=== PATIENT | female | born 1980 | race Caucasian/White ===

== ENCOUNTER → 2022-07-30 13:15 | Outpatient (CLI) | payer BC, SELFPAY ==
--- NOTE | ~2022-07-30 | MM_ITS ---
EXAMINATION: MM screening rai BI w princess HISTORY: Screening mammogram TECHNIQUE: Craniocaudal and mediolateral oblique 3-D tomosynthesis images were obtained and synthetic 2-D images were generated. CAD analysis was submitted and interpreted. COMPARISON: No prior mammogram is available for comparison at this institution. BREAST PARENCHYMAL COMPOSITION: There are scattered areas of fibroglandular density. FINDINGS: There is no evidence of suspicious mass, calcification, or architectural distortion to sugg est malignancy in either breast. There has been no suspicious interval change. IMPRESSION: 1. No mammographic evidence of malignancy. 2. Recommend routine screening mammography in one year. BI-RADS Category 1: Negative Reviewed, dictated and finalized at location A.
== END ==
PROVIDERS: PCP Family Medicine; Visit Provider Obstetrics & Gynecology
DX: Z12.31 Encounter for screening mammogram for malignant neoplasm of breast (principal)
CPT/HCPCS: 77063; 77067

== ENCOUNTER 2022-09-18 08:14 | Outpatient (CLI) | payer BC, SELFPAY ==
--- NOTE | 2022-09-18 08:21 | ECG_ITS ---
Measurements Intervals [place] Rate: 81 P: 66 SD: 198 QRS: 4 QRSD: 93 T: 23 QT: 373 QTc: 435 Interpretive Statements SINUS RHYTHM INCOMPLETE RIGHT BUNDLE BRANCH BLOCK DELAYED PRECORDIAL R/S TRANSITION LOW QRS VOLTAGE- DIFFUSE LEADS BASELINE ARTIFACT- I, III, AVR, AVL, AVF, V3 BORDERLINE ECG NO PREVIOUS ECG AVAILABLE FOR COMPARISON Electronically Signed On 09-18-2022 9:13:06 LICENSED MARRIAGE AND FAMILY THERAPIST by Rubén Lee D.O.
[2022-09-18 09:02] LABS: Hemoglobin 13.8 g/dL (12.0-15.0); Mean Corpuscular HGB Conc 32.1 g/dl (32-36); Mean Corpuscular Hemoglobin 31.2 pg (26-34); Mean Corpuscular Volume 97.3 fl (80-100); Mean Platelet Volume 9.4 fl (7.4-10.4); Platelet Count Result 328 k/mm3 (150-375); Red Blood Count 4.42 M/mm3 (4.2-5.4); Red Cell Distribution Width 12.6 % (11.5-14.5)
[2022-09-18 09:15] LABS: Anion Gap 11 mmol/L (8-16); Blood Urea Nitrogen 21 mg/dL (7-17); Calcium 9.2 mg/dL (8.4-10.2); Carbon Dioxide 28 mmol/L (22-30); Chloride 100 mmol/L (98-107); Estimated Glomerular Filt Rate > 60; Glucose 102 mg/dL (65-110); Potassium 5.1 mmol/L (3.4-5.0); Sodium 139 mmol/L (137-145)
== END 2022-09-18 08:15 | disposition home or self-care (01) ==
LOC: ANHSURGERY 08:19
PROVIDERS: Anesthesiology; PCP Family Medicine; Visit Provider Obstetrics & Gynecology
DX: D25.9 Leiomyoma of uterus, unspecified (principal); I10 Essential (primary) hypertension; Z01.818 Encounter for other preprocedural examination; I45.10 Unspecified right bundle-branch block
CPT/HCPCS: 36415; 80048; 85027; 86850; 86900; 86901; 93005

== ENCOUNTER 2023-01-12 11:28 | Outpatient (CLI) | payer BC, SELFPAY ==
[2023-01-12 11:47] LABS: Basophils Percent Auto 0.5 % (0.2-1.2); Eosinophils Absolute Auto 0.3 K/mm3 (0-0.3); Eosinophils Percent Auto 3.2 % (0-4.4); Hematocrit 39.6 % (37.0-47.0); Hemoglobin 12.8 g/dL (12.0-15.0); Immature Granulocyte Absolute 0.02 K/mm3 (0.00-0.031); Immature Granulocyte Percent A 0.2 % (0-0.5); Lymphocytes Absolute Auto 2.48 K/mm3 (0.9-3.2); Lymphocytes Percent Auto 29.5 % (18.3-44.2); Mean Corpuscular HGB Conc 32.3 g/dl (32-36); Mean Corpuscular Hemoglobin 30.8 pg (26-34); Mean Corpuscular Volume 95.2 fl (80-100); Mean Platelet Volume 9.2 fl (7.4-10.4); Monocytes Absolute Auto 0.5 K/mm3 (0.1-0.6); Monocytes Percent Auto 6.4 % (2.6-8.5); Neutrophils Absolute Auto 5.1 K/mm3 (1.3-6.7); Neutrophils Percent Auto 60.2 % (45.5-73.1); Platelet Count Result 302 k/mm3 (150-375); Red Blood Count 4.16 M/mm3 (4.2-5.4); Red Cell Distribution Width 12.7 % (11.5-14.5); White Blood Count 8.4 K/mm3 (4.5-10.0)
[2023-01-12 11:59] LABS: Anion Gap 5 mmol/L (8-16); Blood Urea Nitrogen 22 mg/dL (7-17); Calcium 9.3 mg/dL (8.4-10.2); Carbon Dioxide 30 mmol/L (22-30); Chloride 101 mmol/L (98-107); Estimated Glomerular Filt Rate 54; Glucose 100 mg/dL (65-110); Potassium 4.5 mmol/L (3.4-5.0); Sodium 136 mmol/L (137-145)
== END 2023-01-12 11:29 | disposition home or self-care (01) ==
PROVIDERS: Anesthesiology; PCP Family Medicine; Visit Provider Obstetrics & Gynecology
DX: Z01.818 Encounter for other preprocedural examination (principal); Z79.899 Other long term (current) drug therapy; N85.2 Hypertrophy of uterus
CPT/HCPCS: 36415; 80048; 85025; 86850; 86900; 86901

== ENCOUNTER 2023-01-16 01:08 | Day surgery (SDC) | payer BC, SELFPAY ==
[2022-09-15 14:31] VITALS: BMI 46.9
--- NOTE | 2022-09-15 14:39 | PC.NURSE ---
Report to the Outpatient Waiting Room, entrance under the green pavilion located off [facility], at time __0700_ on date _09/24/22_. Planned Procedure Time: __0900_. Time changes happen often and if your time is changed the preop area will call you the afternoon before. - You and your visitor will be asked to self-screen and do not enter if you have any COVID symptoms. - We encourage only one visitor and NO visitors under age 16 are allowed at this time. Your visitor will receive communication by the phone number that is given day of service. - The patient visitor is requested to social distance or may leave the building when not with patient due to restrictions. - A mask is required within the hospital. Patients may have clear liquids (water, carbonated beverages, clear teas, apple juice) until 3 hours prior to surgery with a maximum of 20 ounces. - No food from midnight until time of surgery - Infants may have breast milk until 4 hours before surgery, formula 6 hours prior to surgery. - Children will be allowed to drink immediately following surgery. If applicable, please bring a bottle or sippy cup to assist with drinking. Juice, water, soda, and popsicles are readily available. For infants on formula, please bring formula the day of surgery. Pacifiers are allowed. Take the following medications with a SIP of water the morning of surgery: ___FLUOXETINE, BUPROPION Medications to discontinue per physician NONE Date to take last dose Please no make-up, nail south korean, hairspray, perfume, deodorant, or body powder the day of surgery. No jewelry (including any body piercings) or valuables the day of surgery, leave them at home. Please take a shower or bath the night before, or the morning of, surgery with an antibacterial soap. Wear comfortable, loose fitting clothing. Children are encouraged to wear pajamas. - Jewelry must be removed prior to entering the operating room. Rings and piercings that are not removed may be cut off. - The hospital will not accept responsibility for valuables. - Please leave all valuables, including medications, at home the day of surgery. If you are going home after surgery, a licensed [employer] company driver must drive you home. - NO public transportation without another adult. - We recommend that an adult stay with you for 24 hours following discharge. - We also recommend that you do not drive, make important decision, drink alcoholic beverages, or take any drugs that were not prescribed by your health care provider for at least 24 hours after your discharge time. For Pediatric surgeries, we recommend two adults accompany the child home. Follow any additional instructions given to you from your surgeon. If you or anyone in your household have experienced Covid symptoms in the past week, please notify your surgeon or the nurse liaison at the phone number below for possible testing. Telephone instructions given to _PATIENT_and asked if any additional questions and then verbalized understanding. Patient advised to call surgeon office or pre surgery nurse liaison [phone] if any additional questions.
[2023-01-05 14:56] VITALS: BMI 49.0
--- NOTE | 2023-01-05 15:09 | SUR.PREOP ---
Report to the Outpatient Waiting Room, entrance under the green pavilion located off [facility], at time 0730 on date __01/16/23 . Planned Procedure Time: _929 . Time changes happen often and if your time is changed the preop area will call you the afternoon before. - You and your visitor will be asked to self-screen and do not enter if you have any COVID symptoms. - Only one visitor is requested with a max of two and NO children visitors are allowed at this time. - The patient visitor may be requested to leave or wait in car when not with patient due to distancing restrictions. - A mask is optional within the hospital at this time. Patients may have clear liquids (water, carbonated beverages, clear teas, apple juice) until 3 hours prior to surgery with a maximum of 20 ounces. - No food from midnight until time of surgery - Infants may have breast milk until 4 hours before surgery, formula 6 hours prior to surgery. - Children will be allowed to drink immediately following surgery. If applicable, please bring a bottle or sippy cup to assist with drinking. Juice, water, soda, and popsicles are readily available. For infants on formula, please bring formula the day of surgery. Pacifiers are allowed. Take the following medications with a SIP of water the morning of surgery: __BUPROPION,FLUOXETINE DO NOT STOP ANY OF YOUR OTHER PRESCRIPTION MEDICATIONS PRIOR TO SURGERY ?EXCEPT THE FOLLOWING Medications to discontinue per physician BIOTIN, Date to take last dose__01/13/23 Please no make-up, nail bulgarian, hairspray, perfume, deodorant, or body powder the day of surgery. No jewelry (including any body piercings) or valuables the day of surgery, leave them at home. Please take a shower or bath the night before, or the morning of, surgery with an antibacterial soap. Wear comfortable, loose fitting clothing. Children are encouraged to wear pajamas. - Jewelry must be removed prior to entering the operating room. Rings and piercings that are not removed may be cut off. - The hospital will not accept responsibility for valuables. - Please leave all valuables, including medications, at home the day of surgery. If you are going home after surgery, a licensed combine driver must drive you home. - NO public transportation without another adult if you receive anesthesia. - We recommend that an adult stay with you for 24 hours following discharge. - We also recommend that you do not drive, make important decision, drink alcoholic beverages, or take any drugs that were not prescribed by your health care provider for at least 24 hours after your discharge time. For Pediatric surgeries, we recommend two adults accompany the child home. Follow any additional instructions given to you from your surgeon. If you or anyone in your household have experienced Covid symptoms in the past week, please notify your surgeon or the nurse liaison at the phone number below for possible testing. Telephone instructions given to _ADRIAN EVANGELISTA and asked if any additional questions and then verbalized understanding. Patient advised to call surgeon office or pre surgery nurse liaison [phone] if any additional questions.
--- NOTE | 2023-01-13 07:42 | P.HP_ITS ---
H&P: HPI History of Present Illness Date/Time: 01/13/23 07:42 Chief Complaint: Enlarged uterus pelvic pain Narrative: This is a 42-year-old female admitted for robotic hysterectomy bilateral salpingectomy secondary to vaginal bleeding. She had an endometrial biopsy which showed benign findings. She continues to bleed heavily and has known uterine fibroids she will undergo robotic hysterectomy and bilateral s alpingectomy. Risks and benefits reviewed including but not exclusive of , aspiration, bleeding, transfusion, perforation injury to bowel, bladder, ureters, or other internal organs with need for open laparotomy. She received the ACOG handout entitled hysterectomy as well as [place] handout. She had all questions answered as proceed [facility] Social History Social History Smoking packs per day: 0.1 Smoking cigarettes per day: 2.0 Years smoked: 18 Smoking pack-years: 1.80 Smoking status: Current every day smoker Tobacco type: cigarettes Alcohol intake: current Drinks per week: 14 Living arrangements: with family Spiritual care concerns: No Meds Home Medications and Allergies Home Medications Medication Instructions Recorded Confirmed Type bupropion HCl 150 mg 24 hr tablet, 150 mg PO DAILY 09/15/22 01/05/23 History extended release fluoxetine 40 mg capsule 40 mg PO DAILY 09/15/22 01/05/23 History hydrochlorothiazide 25 mg tablet 25 mg PO DAILY 09/15/22 01/05/23 History biotin 5 mg capsule 5 mg PO DAILY 01/05/23 01/05/23 History cetirizine 10 mg capsule (Zyrtec) 10 mg PO DAILY 01/05/23 01/05/23 History Allergies Allergy/AdvReac Type Severity Reaction Status Date / Time No Known Allergies Allergy Unverified 01/05/23 14:38 Exam Const: General: cooperative, healthy appearing, comfortable and well groomed Nutritional Appearance: obese Orientation/consciousness: oriented to person, oriented to place and oriented to time HENMT: Head: normal to inspection Resp: Effort & Inspection: normal respiratory effort Cardio: Rate: regular rate Rhythm: regular rhythm Heart sounds: S1 normal heart sound present and S2 normal heart sound present GI: Inspection: normal to inspection and obesity Percussion: Yes normal to percussion Auscultation: normal bowel sounds : External Female Exam: normal external appearance Speculum Exam - Vagina: normal appearance of the vagina Speculum Exam - Cervix: normal appearance of the cervix Bimanual exam- vagina & uterus: enlarged Bimanual Exam- Adnexa, other: normal adnexae Assessment and Plan Assessment and plan (1) Pelvic pain: Code(s): R10.2 - Pelvic and perineal pain Status: Acute (2) Enlarged uterus: Code(s): N85.2 - Hypertrophy of uterus Status: Acute (3) Excessive bleeding: Code(s): R58 - Hemorrhage, not elsewhere classified Status: Acute (4) Dyspareunia: Status: Acute Plan Robotic total vaginal hysterectomy and bilateral salpingectomy
[2023-01-16] VITALS (13 sets, daily range): BP systolic 128–148; BP diastolic 84–99; PULSE 63–96; RESP 10–18; TEMP 36.4–37.4; O2SAT 93–100
--- NOTE | 2023-01-16 06:24 | WPDHPUPDATE1 ---
History and Physical Update Update Date/Time: 01/16/23 06:24 History and Physical has been reviewed, including an updated exam of the patient. There are NO changes in the patient's condition. Risks, benefits, and alternatives have been discussed and questions answered. Patient agrees to proceed with procedure.
[2023-01-16] MEDS: ACETAMINOPHEN 500 MG TABLET 1000 MG PO (08:10)
[2023-01-16] MEDS: SCOPOLAMINE 1.5 MG PATCH TRANSDERM (08:11)
[2023-01-16] MEDS: LACTATED RINGERS 1,000 ML 30 ML IV CONT ×2 (08:24→10:50)
[2023-01-16] MEDS: KETOROLAC 15 MG/ML VIAL (*BKC) IV PUSH (08:26)
--- NOTE | 2023-01-16 08:42 | P.PNAN_ITS ---
Anes - Initial Pre Proc Eval Procedure: Operation Date: 01/16/23 09:30 Proposed Procedures p Robotic Assisted Total Vaginal Hysterectomy with Bilateral Salpingectomy - Moisés Benítez MD Date/Time: 01/16/23 08:42 Surgeon: Moisés Benítez MD Pre Op Diagnosis: Enlarged Uterus, Fibroids, Pelvic Pain Patient Data Age: 42 Gender: F Height: 1.63 m Weight: 129.6 kg Last Vital Signs Temp 36.4 C L 01/16/23 07:40 Pulse 95 01/16/23 07:40 Resp 16 01/16/23 07:40 BP 148/94 H 01/16/23 07:40 Pulse Ox 99 01/16/23 07:40 O2 Del Method Room Air 01/16/23 07:40 Allergies Allergy/AdvReac Type Severity Reaction Status Date / Time No Known Allergies Allergy Unverified 01/16/23 08:04 Home Medications Medication Instructions Recorded Confirmed Type bupropion HCl 150 mg 24 hr tablet, 150 mg PO DAILY 09/15/22 01/16/23 History extended release fluoxetine 40 mg capsule 40 mg PO DAILY 09/15/22 01/16/23 History hydrochlorothiazide 25 mg tablet 25 mg PO DAILY 09/15/22 01/16/23 History biotin 5 mg capsule 5 mg PO DAILY 01/05/23 01/16/23 History cetirizine 10 mg capsule (Zyrtec) 10 mg PO DAILY 01/05/23 01/16/23 History hydrocodone 5 mg-acetaminophen 325 1 tablet PO Q4H PRN pain #30 tabs 01/16/23 Rx mg tablet Patient hx anesthesia problems: none Family hx anesthesia problems: none Results Review: All pre-operative results and documents have been reviewed as part of the pre- operative evaluation. [facility] Past Medical History Medical History (Updated 01/16/23 @ 08:43 by Moisés Palacios MD) HTN (hypertension) Morbid obesity Social History Social History Smoking packs per day: 0.1 Smoking cigarettes per day: 2.0 Years smoked: 18 Smoking pack-years: 1.80 Smoking status: Current every day smoker Tobacco type: cigarettes Alcohol intake: current Drinks per week: 14 Living arrangements: with family Spiritual care concerns: No Anes - Eval Final PreProcedure Day of Procedure 01/16/23 08:42 Patient weight: morbidly obese Heart: regular rate and rhythm Lungs: clear to auscultation Airway: Mallampati scale class II Neurological: alert and oriented Last oral intake: >/= 8 hours ASA classification: III Emergent: no Anesthetic plan: proceed Results Review: All pre-operative results and documents have been reviewed as part of the pre- operative evaluation. Informed Consent: The patient's anesthetic plan and its attendant risks and benefits were discussed with the patient/family/POA. Questions were solicited and answers provided to the satisfaction of the patient/family/POA.
[2023-01-16] MEDS: ceFAZolin 3 GM/D5W 100 ML 100 ML IVPB (09:02)
--- NOTE | 2023-01-16 10:03 | W.PM.PROC2 ---
Procedure Note - Detailed Date of Procedure 01/16/23 Pre-op Diagnosis Enlarged Uterus, Fibroids, Pelvic Pain Post-op Diagnosis Same Procedure Performed Robotic total vaginal hysterectomy and bilateral salpingectomy Surgeon Moisés Benítez MD Anesthesia General Indications 42-year-old female with an enlarged uterus pain and bleeding Findings enlarged uterus. Normal-appearing ovaries and tubes. Description of Procedure The patient is prepped draped in normal sterile fashion placed in the dorsal lithotomy position. Under excellent general trach anesthesia weighted speculum placed in posterior fornix vagina. Anterior lip of the cervix grasped with single-tooth tenaculum. Uterus sounded to 9cm. Serial dilatation with fragmented dilators performed followed passes the 8. VAHE and the 2. 0.5 cold cup. Next the 16 Malay catheter was placed and bladder drained of clear urine. The weighted speculum and single-tooth removed and the gloves were changed. Supraumbilical incision made the Veress needle passed in the abdomen. Abdomen filled with CO2 gas to 15mm Hg. The 8mm trocar advanced in the abdomen. Downside visualized no injury seen. Patient placed in Trendelenburg at20? and right left lateral quadrant incision made. 8mm trocars advanced under direct visualization assuring no injury. Right upper quadrant incision made and the 8mm trocar advanced under direct visualization assuring no injury. The robot was docked. Attention was turned to the console. The left round ligament was grasped, burned, cut. Anterior bladder flap was formed by sharply dissecting the peritoneum and reflecting the bladder caudally away from the cervix and uterus to the opposite round ligament which was clamped, burned, cut. Next the fallopian tube was dissected away from the ovarian complex and left attached to the uterine origin. The right fallopian tube was removed in the same way. The utero-ovarian ligament on the left was skeletonized clamping burning cutting and conserving the left ovary. Utero-ovarian ligament on the right was skeletonized clamping burning cutting and bring it out to the previously cut round ligament conserving the right ovary. The left cardinal broad ligaments were serially skeletonized clamping burning cutting down the lateral edge of the uterus hugging it tightly until the uterine vessels could be seen on the left these were large and tortuous and were sharply clamped burned and cut. In like fashion the cardinal broad ligaments on the right were serially skeletonized clamping burning cutting down the lateral edge of the uterus cervix until the uterine vessels could be seen on the right. These were individually clamped, burned, cut. A colpotomy incision was made in the cervix uterus and tubes removed through the vagina. The vagina was then closed with continuous running 0 the lock from lateral edge to lateral edge back to the midline. Irrigation undertaken until clear and the raw surface areas sprinkled with [place] term. The robot was undocked. The gas removed from the abdomen. The trocars removed and the incisions closed with 4 Monocryl glue. The patient was awakened and went to recovery in satisfactory condition. All sponge, needle, instrument counts were correct. There were no immediate complications Estimated Blood Loss 25 Drains No Packing No Pathology Yes Complications No immediate complications Condition Stable Disposition PACU
[2023-01-16] MEDS: fentaNYL CITRATE INJ (*CRX) 100 MCG/2 ML VIAL 25 MCG IV PUSH ×4 (10:52→11:45)
--- NOTE | 2023-01-16 12:36 | ADMGEN ---
1233-This patient, Anh Evans, was admitted to OB 2nd Floor Room 284-00. Patient/family oriented to hospital policies and general routines including ID bracelet, bed and alarms, visiting hours, pain management, procedures, bathroom and other care routines, personal items, smoking policy, room service/diet, and visiting hours. Information on how to activate the Rapid Response Team has been discussed. Patient/Family are encouraged to report perceived risks to care and to ask questions if they do not understand what they are told or what they should do.
[2023-01-16] MEDS: DEXTROSE 5%/LACTATED RINGERS 1,000 ML 125 ML IV CONT (13:30)
[2023-01-16] MEDS: IBUPROFEN 600 MG TABLET PO (17:30)
[2023-01-16] MEDS: SIMETHICONE 80 MG TAB.CHEW PO (17:31)
[2023-01-16] MEDS: DOCUSATE SODIUM 100 MG CAPSULE PO (17:31)
[2023-01-17] MEDS: HYDROcodone/acetaminophen (*CRX) 5-325 MG TABLET 1 TAB PO ×2 (01:25→10:38)
[2023-01-17] MEDS: SIMETHICONE 80 MG TAB.CHEW PO ×3 (01:25→08:58)
[2023-01-17] MEDS: IBUPROFEN 600 MG TABLET PO (01:26)
[2023-01-17 04:00] VITALS: BP 140/92; PULSE 82; RESP 18; TEMP 36.7; O2SAT 97
[2023-01-17 05:56] LABS: Basophils Percent Auto 0.1 % (0.2-1.2); Eosinophils Percent Auto 0.1 % (0-4.4); Hematocrit 40.3 % (37.0-47.0); Hemoglobin 13.3 g/dL (12.0-15.0); Immature Granulocyte Absolute 0.06 K/mm3 (0.00-0.031); Immature Granulocyte Percent A 0.4 % (0-0.5); Lymphocytes Absolute Auto 2.07 K/mm3 (0.9-3.2); Lymphocytes Percent Auto 13.4 % (18.3-44.2); Mean Corpuscular Volume 93.9 fl (80-100); Mean Platelet Volume 9.2 fl (7.4-10.4); Monocytes Absolute Auto 0.9 K/mm3 (0.1-0.6); Monocytes Percent Auto 5.7 % (2.6-8.5); Neutrophils Absolute Auto 12.4 K/mm3 (1.3-6.7); Neutrophils Percent Auto 80.3 % (45.5-73.1); Platelet Count Result 342 k/mm3 (150-375); Red Blood Count 4.29 M/mm3 (4.2-5.4); Red Cell Distribution Width 12.7 % (11.5-14.5); White Blood Count 15.5 K/mm3 (4.5-10.0)
--- NOTE | 2023-01-17 07:04 | PM.DS ---
DS: Admitting Diagnosis Discharge Date 01/17/2023 Admitting Diagnosis enlarged uterus, pelvic pain /bleeding DS: Discharge Diagnosis Discharge Diagnosis (1) Dyspareunia: Status: Acute (2) Excessive bleeding: Code(s): R58 - Hemorrhage, not elsewhere classified Status: Acute (3) Enlarged uterus: Code(s): N85.2 - Hypertrophy of uterus Status: Acute (4) Pelvic pain: Code(s): R10.2 - Pelvic and perineal pain Status: Acute DS: Summary Hospital Course Reason for hospitalization: patient was admitted for robotic hysterectomy bilateral salpingectomy Hospital Course: patient underwent an unremarkable robotic hysterectomy bilateral salpingectomy. Her hospital course unremarkable. She remained afebrile. She was up, voiding without difficulty, eating regular diet, ambulating, and generally without complaints. Time Spent with Patient Time attestation: Total time spent providing and/or coordinating discharge services: Exam Const: General: cooperative, healthy appearing and comfortable Nutritional Appearance: overweight Orientation/consciousness: oriented to person, oriented to place and oriented to time HENMT: Head: normal to inspection Resp: Effort & Inspection: normal respiratory effort Cardio: Rate: regular rate Rhythm: regular rhythm Heart sounds: S1 normal heart sound present and S2 normal heart sound present GI: Inspection: normal to inspection and incision ( Wounds clean dry intact) DS: Data Data Completed and Pending Pending studies at discharge: Pending at discharge 01/16/23 09:47 Surgical [PTH] Routine Labs on day of discharge: Labs from last 24 hours 01/17/23 05:02 WBC 15.5 H RBC 4.29 Hgb 13.3 Hct 40.3 MCV 93.9 MCH 31.0 MCHC 33.0 RDW 12.7 Plt Count 342 MPV 9.2 Immature Gran % (Auto) 0.4 Neut % (Auto) 80.3 H Lymph % (Auto) 13.[address] [place] % (Auto) 5.7 Eos % (Auto) 0.1 Baso % (Auto) 0.1 L Lymph # (Auto) 2.07 [place] # (Auto) 0.9 H Eos # (Auto) 0.0 Baso # (Auto) 0.0 Abs Immat Gran (auto) 0.06 H Absolute Neuts (auto) 12.4 H Absolute Nucleated RBC 0.0 Nucleated RBC % 0.0 Discharge Plan Discharge Patient Disposition: Home, Self-Care Discharge Instructions: Remove the Scopolamine patch that was placed behind your ear in 72 hours or less. Wash your hands after touching. Stand Alone Forms: General Discharge Instructions Follow-up/Referrals: Moisés Urrutia MD [Physician] - Discharge Medications: New hydrocodone-acetaminophen 5-325 mg tablet 1 tablet PO Q4H PRN (Reason: pain) Qty: 30 0RF Continued bupropion HCl 150 mg Tablet Extended Release 24 Hr 150 mg PO DAILY fluoxetine 40 mg capsule 40 mg PO DAILY hydrochlorothiazide 25 mg Tablet 25 mg PO DAILY biotin 5 mg Capsule 5 mg PO DAILY Zyrtec 10 mg Capsule 10 mg PO DAILY
--- NOTE | 2023-01-17 07:07 | PM.GYNPNOP ---
MANAGER OF NETWORK - A/P Postoperative Procedures: Procedures Operation Date: 01/16/23 09:30 Actual Procedure Side Surgeon p Robotic Assisted Total Vaginal Hysterectomy with Bilateral Salpingectomy Bilateral Moisés Benítez MD Postoperative status: doing well Postoperative plan: routine post-op care, see orders, advance diet and discharge Time Spent With Patient Time: Total time spent is greater than 50% in coordination of care (as documented) at patient's floor/unit and/or counseling patient: Time with patient: less than 15 minutes MANAGER OF NETWORK- PN:Subj Post-Op Subjective Date/time seen: 01/17/23 07:07 Subjective: patient reports feeling better, pain is well controlled and patient is tolerating oral intake Exam Const: General: cooperative, healthy appearing and comfortable Nutritional Appearance: average body habitus Orientation/consciousness: oriented to person, oriented to place and oriented to time HENMT: Head: normal to inspection Resp: Effort & Inspection: normal respiratory effort Cardio: Rate: regular rate Rhythm: regular rhythm Heart sounds: S1 normal heart sound present and S2 normal heart sound present GI: Inspection: normal to inspection and incision (cdi) MANAGER OF NETWORK - PN: Obj Data Vital Signs Vital Signs: Vital Signs - 24 hr 01/16/23 07:40 01/16/23 10:25 01/16/23 10:40 Temperature 97.5 F L 97.9 F Pulse Rate 95 86 65 Respiratory Rate 16 15 10 L Blood Pressure 148/94 H 144/89 H Pulse Oximetry 99 100 100 Oxygen Delivery Room Air Simple Face Mask Simple Face Mask Oxygen Flow Rate 8 8 01/16/23 10:55 01/16/23 11:10 01/16/23 11:25 Temperature Pulse Rate 63 71 75 Respiratory Rate 12 12 12 Blood Pressure 131/94 H 137/84 146/90 H Pulse Oximetry 94 94 93 Oxygen Delivery Room Air Room Air Room Air Oxygen Flow Rate 01/16/23 11:40 01/16/23 11:55 01/16/23 12:10 Temperature Pulse Rate 73 84 84 Respiratory Rate 12 14 18 Blood Pressure 136/90 141/92 H 138/86 Pulse Oximetry 94 94 94 Oxygen Delivery Room Air Room Air Room Air Oxygen Flow Rate 01/16/23 12:25 01/16/23 12:35 01/16/23 13:40 Temperature 99.3 F Pulse Rate 94 84 84 Respiratory Rate 16 16 16 Blood Pressure 128/91 H 135/85 Pulse Oximetry 94 96 96 Oxygen Delivery Room Air Room Air Oxygen Flow Rate 01/16/23 20:45 01/17/23 04:00 Temperature 98.2 F 98.1 F Pulse Rate 96 82 Respiratory Rate 18 18 Blood Pressure 142/99 H 140/92 H Pulse Oximetry 97 97 Oxygen Delivery Oxygen Flow Rate Intake/Output Intake/Output: Intake & Output 01/14/23 01/15/23 01/16/23 01/17/23 23:59 23:59 23:59 23:59 Intake Total 3324 Output Total 2610 325 Balance 714 -325 Meds/Results Medications: Active Medications Generic Name Dose Route Start Last Admin Trade Name Freq PRN Reason Stop Dose Admin Hydrocodone Bitart/Acetaminophen 1 tab 01/16/23 12:26 01/17/23 01:25 Hydrocodone/Acetaminophen (*Crx) 5-325 Mg Tablet PO 1 tab Q3H PRN Administration Pain Rated 5 or Less Hydrocodone Bitart/Acetaminophen 1 tab 01/16/23 12:26 Hydrocodone/Acetaminophen (*Crx) 10-325 Mg Tablet PO Q3H PRN Pain Rated 6 or Greater Docusate Sodium 100 mg 01/16/23 17:00 01/16/23 17:31 Docusate Sodium 100 Mg Capsule PO 100 mg BID YANNI Administration Enoxaparin Sodium 40 mg 01/17/23 09:00 Enoxaparin 40 Mg/0.4 Ml Syringe SUB-Q DAILY YANNI Ibuprofen 600 mg 01/16/23 12:26 01/17/23 01:26 Ibuprofen 600 Mg Tablet PO 600 mg Q6H PRN Administration Cramping Ketorolac Tromethamine 30 mg 01/16/23 12:26 Ketorolac 30 Mg/Ml Vial (*Bkc) IV PUSH 01/21/23 12:25 Q6H PRN Pain Rated 4-6 Naloxone HCl 0.1 mg 01/16/23 12:26 Naloxone Hcl 0.4 Mg/Ml Vial IV PUSH Q2M PRN Respiratory rate less than 10 Ondansetron HCl 4 mg 01/16/23 12:26 Ondansetron Inj 4 Mg/2 Ml Vial IV PUSH Q6H PRN Nausea And Vomiting Simethicone 80 mg 01/16/23 12:26 01/17/23 04:57 Si
--- NOTE | 2023-01-17 07:58 | P.PNAN_ITS ---
Anes - Prog Note Post-Op Date/Time: 01/17/23 07:58 Cardiovascular status: normal Respiratory status: normal Airway patency: baseline Mental status: baseline Post-Op hydration status: normal Vital Signs: Last Vital Signs Temp 36.7 C 01/17/23 04:00 Pulse 82 01/17/23 04:00 Resp 18 01/17/23 04:00 BP 140/92 H 01/17/23 04:00 Pulse Ox 97 01/17/23 04:00 O2 Del Method Room Air 01/16/23 13:40 O2 Flow Rate 8 01/16/23 10:40 Pain Score (VAS): 10 I/O: Intake & Output 01/16/23 01/16/23 01/17/23 15:59 23:59 07:59 Intake Total 1100 2224 Output Total 60 2550 325 Balance 1040 -326 -325 Laboratory Tests 01/17/23 05:02 01/17/23 05:02 WBC 15.5 H RBC 4.29 Hgb 13.3 Hct 40.3 MCV 93.9 MCH 31.0 MCHC 33.0 RDW 12.7 Plt Count 342 MPV 9.2 Immature Gran % (Auto) 0.4 Neut % (Auto) 80.3 H Lymph % (Auto) 13.4 L [place] % (Auto) 5.7 Eos % (Auto) 0.1 Baso % (Auto) 0.1 L Lymph # (Auto) 2.07 [place] # (Auto) 0.9 H Eos # (Auto) 0.0 Baso # (Auto) 0.0 Abs Immat Gran (auto) 0.06 H Absolute Neuts (auto) 12.4 H Absolute Nucleated RBC 0.0 Nucleated RBC % 0.0 Post-procedural complaints: none Patient Feedback: Patient satisfied with anesthetic care.
[2023-01-17] MEDS: DOCUSATE SODIUM 100 MG CAPSULE PO (08:58)
[2023-01-17] MEDS: ENOXAPARIN 40 MG/0.4 ML SYRINGE SUB-Q (08:59)
[2023-01-17 09:05] VITALS: BP 127/77; PULSE 86; RESP 18; TEMP 36.7; O2SAT 98
== END 2023-01-17 10:50 | disposition home or self-care (01) ==
LOC: ANHSURGERY 09:31 → ANHOB2 12:28
PROVIDERS: PCP Family Medicine; Visit Provider Obstetrics & Gynecology
PROC: (CPT 58552; principal; 2023-01-16 09:30)
DX: D25.0 Submucous leiomyoma of uterus (principal); D25.1 Intramural leiomyoma of uterus; R10.2 Pelvic and perineal pain; N93.9 Abnormal uterine and vaginal bleeding, unspecified; I10 Essential (primary) hypertension; E66.01 Morbid (severe) obesity due to excess calories; Z68.42 Body mass index [BMI] 45.0-49.9, adult; F17.210 Nicotine dependence, cigarettes, uncomplicated
CPT/HCPCS: 58552; S2900; 36415; 80048; 85025; 86850; 86900; 86901; 88307; 99199; A9270; J0690; J1100; J1650; J1885; J2250; J2405; J2704; J2710; J3010; J7030; J7120; J7121

== ENCOUNTER 2023-12-28 09:46 | Emergency (ER) | payer BC, SELFPAY ==
[2023-12-28 09:54] VITALS: BP 175/106; PULSE 87; RESP 20; TEMP 36.7; O2SAT 99
--- NOTE | 2023-12-28 10:03 | ED.DENTAL ---
HPI - Dental/Oral General Chief complaint: Dental/Oral Stated complaint: Toothache/Swelling to Face Source: patient, RN notes reviewed and old records reviewed Mode of arrival: ambulatory Limitations: no limitations History of Present Illness HPI Narrative: 43-year-old female presents to [facility] with complaints of right upper dental pain this started last p.m.. Patient now has facial swelling. Patient taking ibuprofen and hydrocodone with little relief. Patient states does not have a dentist but is called several and cannot get until next Thursday. Related Data Home Medications Medication Instructions Recorded Confirmed Women's Multivitamin 1 tab-cap PO DAILY 12/24/23 12/28/23 aspirin 81 mg capsule 81 mg PO DAILY 12/24/23 12/28/23 escitalopram oxalate 20 mg tablet 20 mg PO DAILY 12/24/23 12/28/23 losartan 100 1 tablet PO DAILY 12/24/23 12/28/23 mg-hydrochlorothiazide 25 mg tablet omega-3 fatty acids 1 cap PO DAILY 12/24/23 12/28/23 topiramate 25 mg tablet 25 mg PO BID 12/24/23 12/28/23 Allergies Allergy/AdvReac Type Severity Reaction Status Date / Time No Known Allergies Allergy Unverified 12/24/23 12:56 Review of Systems Constitutional: Constitutional: Reports no additional constitutional complaints, Denies body ache(s), Denies chills, Denies fatigue, Denies fever(s) and Denies headache(s) Eyes: Eyes: Reports no additional eye complaints and Denies blurry vision ENT: Reports system reviewed and no additional complaints, except as documented, Reports dental pain, Denies vertigo, Denies dizziness, Denies ear discharge, Denies otalgia, Reports facial pain, Denies headache(s), Denies nasal congestion, Denies nasal discharge, Denies sinus pain, Denies sinus pressure and Denies sore throat Cardiovascular: Cardiovascular: Reports no additional cardiovascular complaints, Denies chest pain, Denies chest pain at rest, Denies rapid heart rate and Denies dyspnea Respiratory: Respiratory: Reports no additional respiratory complaints, Denies chest congestion, Denies cough, Denies pain on inspiration, Denies pain with cough and Denies dyspnea Gastrointestinal: Gastrointestinal: Denies abdominal pain, Denies diarrhea, Denies nausea and Denies vomiting Integumentary/Breasts: Skin/Breast: Denies rash Neurologic: Reports system reviewed and no additional complaints, except as documented, Denies vertigo, Denies dizziness and Denies headache(s) Endocrine: Endocrine: Denies fatigue PMFSH Past Medical History Medical History HTN (hypertension) Morbid obesity Social History Social History Smoking packs per day: 0.5 Smoking cigarettes per day: 10.0 Years smoked: 12 Smoking pack-years: 6.00 Smoking status: Current every day smoker Tobacco type: cigarettes Alcohol intake: current Drinks per week: 21 Alcohol use details: BEER Substance use: never Substance use type: does not use Living arrangements: with family Spiritual care concerns: No Comments At the time of my signature, I reviewed and agree with the nursing past medical, surgical, social, and family history. There is no relevant family history pertinent to the patient complaint. Exam Const: General: cooperative, healthy appearing, no acute distress and well nourished Nutritional Appearance: well nourished Orientation/consciousness: patient oriented x3 Limitations: no limitations HENMT: Head: normal to inspection and normocephalic Ears: external ears normal Face/Nose/Sinus: No face symmetric and Other nasal findings present ( Right facial swelling) Face and sinus: normal facial exam Mouth: Yes Normal oral and palatal mucosa present, Yes oropharynx normal and Yes moist mucous membranes Teeth and gingiva: abnormal tooth and associated gingiva ( tooth 1 and 2 broken at gum line), gingiva abnormal edematous and poor dentition Thro
== END 2023-12-28 10:10 | disposition home or self-care (01) ==
PROVIDERS: Emergency Provider Registered Nurse; PCP Family Medicine
DX: K04.7 Periapical abscess without sinus (principal); I10 Essential (primary) hypertension; E66.01 Morbid (severe) obesity due to excess calories; Z68.42 Body mass index [BMI] 45.0-49.9, adult
CPT/HCPCS: 99213; G0463

== ENCOUNTER 2024-01-06 01:04 | Day surgery (SDC) | payer BC, SELFPAY ==
[2023-12-24 12:54] VITALS: BMI 49.4
--- NOTE | 2024-01-04 09:53 | SUR.PREOP ---
Patient called regarding upcoming procedure. Reviewed preop instructions, appointment times, and procedure prep.
[2024-01-06 09:10] VITALS: BP 143/95; PULSE 92; RESP 18; TEMP 36.5; O2SAT 98
[2024-01-06] MEDS: LACTATED RINGERS 1,000 ML 150 ML IV CONT (09:46)
--- NOTE | 2024-01-06 10:07 | WPDANESEPPF ---
Anes - Initial Pre Proc Eval Procedure: Operation Date: 01/06/24 10:30 Proposed Procedures p Screening Colonoscopy - Walker Daugherty MD Date/Time: 01/06/24 10:07 Surgeon: Walker Daugherty MD Pre Op Diagnosis: neoplasm screening Patient Data Age: 43 Gender: F Height: 1.63 m Weight: 128 kg Last Vital Signs Temp 97.7 F 01/06/24 09:10 Pulse 92 01/06/24 09:10 Resp 18 01/06/24 09:10 BP 143/95 H 01/06/24 09:10 Pulse Ox 98 01/06/24 09:10 O2 Del Method Room Air 01/06/24 09:10 Allergies Allergy/AdvReac Type Severity Reaction Status Date / Time No Known Allergies Allergy Unverified 01/06/24 09:08 Home Medications Medication Instructions Recorded Confirmed Type Women's Multivitamin 1 tab-cap PO DAILY 12/24/23 01/06/24 History aspirin 81 mg capsule 81 mg PO DAILY 12/24/23 01/06/24 History escitalopram oxalate 20 mg tablet 20 mg PO DAILY 12/24/23 01/06/24 History losartan 100 1 tablet PO DAILY 12/24/23 01/06/24 History mg-hydrochlorothiazide 25 mg tablet omega-3 fatty acids 1 cap PO DAILY 12/24/23 01/06/24 History topiramate 25 mg tablet 25 mg PO BID 12/24/23 01/06/24 History Patient hx anesthesia problems: none Family hx anesthesia problems: none Results Review: All pre-operative results and documents have been reviewed as part of the pre-operative evaluation. [facility] Past Medical History Medical History HTN (hypertension) Morbid obesity Social History Social History Smoking packs per day: 0.5 Smoking cigarettes per day: 10.0 Years smoked: 12 Smoking pack-years: 6.00 Smoking status: Current every day smoker Tobacco type: cigarettes Alcohol intake: current Drinks per week: 21 Alcohol use details: BEER Substance use: never Substance use type: does not use Living arrangements: with family Spiritual care concerns: No Anes - Eval Final PreProcedure Day of Procedure 01/06/24 10:07 Patient weight: morbidly obese Heart: regular rate and rhythm Lungs: clear to auscultation Airway: Mallampati scale class II Neurological: alert and oriented Last oral intake: >/= 8 hours ASA classification: III Emergent: no Anesthetic plan: proceed Anesthesia type and monitoring: general GIVS and standard monitoring Results Review: All pre-operative results and documents have been reviewed as part of the pre-operative evaluation. Informed Consent: The patient's anesthetic plan and its attendant risks and benefits were discussed with the patient/family/POA. Questions were solicited and answers provided to the satisfaction of the patient/family/POA.
--- NOTE | 2024-01-06 10:39 | PM.HPGS ---
History of Present Illness History of Present Illness Consent: Risks, benefits, and alternatives have been discussed and questions answered. Patient agrees to proceed with procedure. Chief complaint: neoplasm screening Narrative: Anh Evans is a 43 year old female here for first screening colonoscopy Review of Systems Constitutional: Constitutional: Denies headache(s) and Denies weakness Eyes: Eyes: Denies blurry vision ENT: Reports Normal hearing present, Denies headache(s) and Denies neck pain Cardiovascular: Cardiovascular: Denies chest pain and Denies dyspnea Respiratory: Respiratory: Denies dyspnea Gastrointestinal: Gastrointestinal: Reports no additional gastrointestinal complaints Genitourinary: Genitourinary: Denies dysuria Musculoskeletal: Musculoskeletal: Denies neck pain Integumentary/Breasts: Skin/Breast: Denies dry skin Neurologic: Reports Normal hearing present, Denies headache(s) and Denies weakness Psychiatric: Psychiatric: Denies anxiety Endocrine: Endocrine: Denies change in body appearance Hematologic/Lymphatic: Hematologic/Lymphatic: Denies easy bleeding Allergic/Immunologic: Allergic/Immunologic: Denies urticaria PMFSH Past Medical History Medical History (Updated 01/06/24 @ 10:39 by Walker Daugherty MD) Colon cancer screening HTN (hypertension) Morbid obesity Social History Social History Smoking packs per day: 0.5 Smoking cigarettes per day: 10.0 Years smoked: 12 Smoking pack-years: 6.00 Smoking status: Current every day smoker Tobacco type: cigarettes Alcohol intake: current Drinks per week: 21 Alcohol use details: BEER Substance use: never Substance use type: does not use Living arrangements: with family Spiritual care concerns: No Meds Home Medications and Allergies Home Medications Medication Instructions Recorded Confirmed Type Women's Multivitamin 1 tab-cap PO DAILY 12/24/23 01/06/24 History aspirin 81 mg capsule 81 mg PO DAILY 12/24/23 01/06/24 History escitalopram oxalate 20 mg tablet 20 mg PO DAILY 12/24/23 01/06/24 History losartan 100 1 tablet PO DAILY 12/24/23 01/06/24 History mg-hydrochlorothiazide 25 mg tablet omega-3 fatty acids 1 cap PO DAILY 12/24/23 01/06/24 History topiramate 25 mg tablet 25 mg PO BID 12/24/23 01/06/24 History Allergies Allergy/AdvReac Type Severity Reaction Status Date / Time No Known Allergies Allergy Unverified 01/06/24 09:08 Vital Signs Vital Signs - 24 hr 01/06/24 09:10 Temperature 97.7 F Pulse Rate 92 Respiratory Rate 18 Blood Pressure 143/95 H Pulse Oximetry 98 Oxygen Delivery Room Air Exam Const: General: comfortable and no acute distress HENMT: Face/Nose/Sinus: Normal nares present Eyes: General: appearance normal, both eyes and all related structures Neck: Neck: no JVD Resp: Auscultation: clear to auscultation bilaterally Cardio: Rate: regular rate Rhythm: regular rhythm GI: Inspection: non-distended GI Palp: Yes Soft to palpation Skin: General skin exam: normal color Neuro: General: gait normal Speech: normal speech Extrem: General: normal to inspection Psych: Mental Status: mental status grossly normal Assessment and Plan Assessment and plan (1) Colon cancer screening: Code(s): Z12.11 - Encounter for screening for malignant neoplasm of colon Status: Acute Assessment and Plan: colonoscopy
[2024-01-06 10:57] VITALS: BP 115/73; PULSE 80; RESP 24; O2SAT 98
[2024-01-06 11:07] VITALS: BP 122/73; PULSE 78; RESP 21; O2SAT 99
[2024-01-06 11:17] VITALS: BP 121/84; PULSE 74; RESP 19; O2SAT 100
== END 2024-01-06 11:28 | disposition home or self-care (01) ==
PROVIDERS: PCP Family Medicine; Visit Provider Internal Medicine Gastroenterology
PROC: 0DJD8ZZ Inspection of Lower Intestinal Tract, Via Natural or Artificial Opening Endoscopic (ICD-10-PCS; CPT 45378; principal; 2024-01-06 10:30)
DX: Z12.11 Encounter for screening for malignant neoplasm of colon (principal); I10 Essential (primary) hypertension; F17.210 Nicotine dependence, cigarettes, uncomplicated; E66.01 Morbid (severe) obesity due to excess calories; Z68.42 Body mass index [BMI] 45.0-49.9, adult; Z79.82 Long term (current) use of aspirin
CPT/HCPCS: 45378; J2001; J2704; J7120

== ENCOUNTER 2024-03-10 12:31 | Outpatient (CLI) | payer BC, SELFPAY ==
--- NOTE | ~2024-03-10 | MM_ITS ---
EXAMINATION: MM screening rai BI w princess HISTORY: Screening mammogram TECHNIQUE: Craniocaudal and mediolateral oblique 3-D tomosynthesis images were obtained and synthetic 2-D images were generated. CAD analysis was submitted and interpreted. COMPARISON: 07/30/2022 bilateral screening mammogram examination BREAST PARENCHYMAL COMPOSITION: There are scattered areas of fibroglandular density. FINDINGS: There is no evidence of suspicious mass, calcification, or architectural distortion to sugg est malignancy in either breast. There has been no suspicious interval change. IMPRESSION: 1. No mammographic evidence of malignancy. 2. Recommend routine screening mammography in one year. BI-RADS Category 1: Negative Reviewed, dictated and finalized at location B.
== END 2024-03-10 12:32 ==
PROVIDERS: PCP Obstetrics & Gynecology; Visit Provider Obstetrics & Gynecology
DX: Z12.31 Encounter for screening mammogram for malignant neoplasm of breast (principal)
CPT/HCPCS: 77063; 77067

== ENCOUNTER 2025-04-14 08:02 | Emergency (ER) | payer BC, SELFPAY ==
--- OUTSIDE RECORDS SUMMARY | 2025-04-14 08:05 | XMS_ITS | Clinical Summary ---
Author Organization [facility] [place] Address [address] [place] [address] Phone Care Team Providers Care Patient Observation Assistant Name Role Phone Yennifer Weaver PAC Primary Care Pro vider Allergies No known active allergies Medications escitalopram (LEXAPRO) 20 MG Tablet Take 20 mg by mouth daily. 04/11/2024 Active losartan potassium-hydro chlorothiazide (HYZAAR) 100-25 MG Tablet Take 1 Tablet by mouth daily. Active metoprolol Succinate (TOPROL-XL) 50 MG TABLET SR 24 HR Take 50 mg by mouth daily. 04/11/2024 Active Lisdexamfetamin e Dimesylate 30 MG Capsule Take 1 Capsule by mouth daily. 03/14/2024 Active Cholecalciferol (VITAMIN D-3 PO) Take 2,000 Units by mouth. Active amLODIPine (NORVASC) 5 MG Tablet Take 1 Tablet by mouth daily. 90 Tablet 04/15/2024 Active Active Problems Problem Noted Date Diagnosed Date Depression 04/15/2024 Hypertension 04/15/2024 Encounters Date Type Department Care Team Description 04/14/2025 6:58 AM CDT [facility] [address] [place] [id number] Yennifer Weaver, DONA Arrived 04/14/2025 Travel 03/14/2025 Transcribe [facility] [place] [facility] [address] [place] [address] Yennifer Weaver, DONA Encounter for screening mammogram for breast cancer (Primary Dx) from Last 3 Months Immunizations Immunization Administration Dates Next Due Influenza Vaccine, Quadrivalent, PF 08/09/2019 TDAP Vaccine 11/16/2019 Family History Medical History Relation Name Comments Cancer Father Relation Name Status Comments Father Mother Alive Social History Tobacco Use Types Packs/Day Years Used Date Smoking Tobacco: Every Day Cigarettes 0.5 16 Started: 04/15/2009 Smokeless Tobacco: Never Tobacco Cessation:Ready to Q uit: No; Counseling Given: No Alcohol Use Standard Drinks/Week Comments Yes 0 (1 standard drink = 0.6 oz pur e alcohol) [facility] Utilities Answer Date Recorded In the past 12 months has th e electric, gas, oil, or water company threatened to shut off services in your home? No 04/15/2024 Social Connection and Isolation Panel Answer Date Recorded In a typical week, how many times do you talk on the phone with family, friends, or neighbors? More than three times a week 04/15/2024 How often do you get togethe r with friends or relatives? Three times a week 04/15/2024 Attends [employer] Not on file 04/15 Active Member of Clubs or Organizations Not on f ile 04/15/2024 Attends Club or Organization Meetings Not on rachel e 04/15/2024 Marital Status Not on file 04/15/2024 AUDIT-C Answer Date Recorded Q1: How often do you have a drink containing alc ohol? 2-3 times a week 04/15/2024 Q2: How many drinks containi ng alcohol do you have on a typical day when you are drinking? 3 or 4 04/15/2024 Q3: How often do you have si x or more drinks on one occasion? Weekly 04/15/2024 Overall Financial Resource Strain (CARDIA) Answe r Date Recorded How hard is it for you to pa y for the very basics like food, housing, medical care, and heating? Not very hard 04/15/2024 [facility] [place] [facility] ional [facility] - Occupational Stress Questionnaire Answer Date Recorded Do you feel stress - tense, restless, nervous, or anxious, or unable to sleep at night because your mind is troubled all the time - these days? To some extent 04/15/2024 Exercise Vital Sign Answer Date Recorde d On average, how many days pe r week do you engage in moderate to strenuous exercise (like a brisk walk)? 4 days 04/15/2024 On average, how many minutes do you engage in exercise at this level? 30 min 04/15/2024 Hunger Vital Sign Answer Date Recorded Within the past 12 months, y ou worried that your food would run out before you got the money to buy more. Never true 04/15/20 24 Within the past 12 months, t he food you bought just didn't last and you didn't have money to get more. Never true 04/15/2024 PRAPARE - Transportation Answer Date Re corded In the past 12 months, has l ack of transportation kept you from medical appointments or from getting medications? No 04/02 In the past 12 months, has l ack of transportation kept you from meetings, work, or from getting things needed for daily living? No 04/15/2024 Housing Stability Vital Sign Answer Silvano e Recorded In the last 12 months, was t here a time when you were not able to pay the mortgage or rent on time? No 04/15/2024 In the past 12 months, how m any times have you moved where you were living? 0 04/15/2024 At any time in the past 12 m [facility], were you homeless or living in a retirement (including now)? No 04/15/2024 Comments No Sex and Gender Information Value Date Recorded Sex Assigned at Not on file Legal Sex Female 10:19 AM CDT Gender Identity Not on file Sexual Orientation Not on file Last Filed Vital Signs Vital Sign Reading Time Taken Comments Blood Pressure 160/102 04/15/2024 10:33 AM CDT Pulse 55 04/15/2024 10:33 AM CDT Temperature 36.3 C (97.4 F) 04/15/2024 10:33 AM CDT Respiratory Rate 12 04/15/2024 10:33 AM CDT Oxygen Saturation 97% 04/15/2024 10:33 AM CDT Inhaled Oxygen Concentration - - Weight 131.1 kg (289 lb) 04/15/2024 10:33 AM CDT Height 162.6 cm (5' 4) 04/15/2024 10:33 AM CDT Body Mass Index 49.61 04/15/2024 10:33 AM CDT Plan of Treatment Health Maintenance Due Date Last Done Comments Hepatitis C Virus (HCV) Screening 1978 Mammogram 1978 Hepatitis B Immunization (1 of 3 - 19+ 3-dose series) 1997 Pneumococcal Immunization Combined (1 of 2 - PCV) 1997 Discussion re Starting/Frequency of Mammograms 2018 Cologuard 2023 Immunochemical Fecal Occult Blood 2023 SARS-COV-2 Immunization (3 - 2023- season) 2024 02/17/2021, 01/28/2021 Influenza Immunization (Seas on Ended) 2025 08/09/2019 Td Immunization Every 10 Yea rs (Adults With 1 Tdap) 11/16/2029 11/16/2019 Colonoscopy 01/31/2034 02/01/2024 Colorectal Cancer Screening 01/31/2034 Respiratory Syncytial Virus (RSV) Immunization (Adult) (1 - 1-dose 75+ series) 2053 TdaP Immunization Discontinued 11/16/2019 Human Papillomavirus (HPV) Immunization Aged Out No longer eligible based on patient's age to complete this topic Meningococcal Immunization (ACWY) Aged Out No longer eligible based on patient's age to complete this topic Rotavirus Immunization Aged Out No lo nger eligible based on patient's age to complete this topic Insurance [facility] Care Teams Patient Observation Assistant Relationship Specialty Start Date End Date Yennifer Weaver [facility] [address] [place] [address] PCP - General Physician Computer Installation Engineer 04/15/24
--- OUTSIDE RECORDS SUMMARY | 2025-04-14 08:05 | XMS_ITS | Clinical Summary ---
Author Organization [facility] C Address [address] [facility] [place] [address] Care Team Providers Care Software Publisher Name Role Phone Elvira Glass MD Primary Care Provider + Allergies No known active allergies Medications cholecalciferol (VITAMIN D-3) 2,000 unit capsule Take 2,000 Units by mouth daily Active escitalopram (LEXAPRO) 10 mg tablet Take 1 tablet (10 mg total) by mouth daily 10/07/2023 Active losartan-hydroch lorothiazide (HYZAAR) 100-25 mg per tablet Take 1 tablet by mouth daily 10/07/2023 Active buPROPion SR (WELLBUTRIN SR) 150 mg 12 hr tablet Take 1 tablet (150 mg total) by mouth daily Active metoprolol XL (TOPROL-XL) 50 mg extended release tablet Take 1 tablet (50 mg total) by mouth daily Active Active Problems Problem Noted Date Diagnosed Date Vocal nodules in adults 01/29/2022 Anxiety 05/09/2020 Essential hypertension 05/09/2020 Resolved Problems Problem Noted Date Diagnosed Date Resolved Date Breech presentation, no version 11/30/2019 01/12/2020 Overview (11/30/2019): Added automatically from request for surgery [id number] Gestational diabetes mellitu s (GDM) in second trimester 09/27/2019 01/12/2020 resulting from in vitro fertilization in second trimester 07/26/20192019 Supervision of other high ri sk , antepartum 06/30/2019 01/12/2020 Overview (07/12/2019): -EDC: Estimated Date of Delivery: 01/14/2020 - Labs: O+/I/hep B neg/hep C neg/HIV neg -Blood type: O pos -Pap: [facility] -Aneuploidy testing: panorama, low risk female -Anatomy ultrasound: -GCT: -Tdap: -Flu: -GBS: -Contraception: -Peds: -/BF/FOB: Yung-Bill Primary reason for MFM care: IVF, AMA, Chronic HTN, obesity, h/o hysteroscopic myomectomy 01/2019([facility]) Assessment & Plan (07/12/2019 11:32 AM CDT): 38 year old at 13+2 weeks gestation with no evidence of compromise in well being EDC: Estimated Date of Delivery: 01/14/2020 - Labs: O+/I/hep B neg/hep C neg/HIV neg -Blood type: O pos -Pap: [facility] -Aneuploidy testing: panorama, low risk female -Anatomy ultrasound: -GCT: -Tdap: -Flu: -GBS: -Contraception: -Peds: -/BF/FOB: Yung-Bill Primary reason for MFM care: IVF, AMA, Chronic HTN, obesity, h/o hysteroscopic myomectomy 01/2019([employer]) RTN in 1 week Assessment & Plan (06/30/2019 10:53 AM CDT): EDC: Estimated Date of Delivery: 01/14/2020 - Labs: drawn 06/30/19 -Blood type: O pos -Pap: [facility] -Aneuploidy testing: drawn 06/30/19 (red), donor egg 24 years old -Anatomy ultrasound: -GCT: -Tdap: -Flu: -GBS: -Contraception: -Peds: -/BF/FOB: Yung Primary reason for MFM care: IVF, AMA, Chronic HTN, obesity, h/o hysteroscopic myomectomy 01/2019([facility]) RTN in 2 weeks Primigravida of advanced mat ernal age in first trimester 06/30/2019 01/12/2020 Overview (06/30/2019): 24 year old donor eggs used for the , IVF simkes Assessment & Plan (07/12/2019 11:34 AM CDT): 24 year old donor eggs with low risk panorama Assessment & Plan (06/30/2019 10:54 AM CDT): Cell free DNA red drawn today, donor eggs 24 years old Chronic hypertension affecting 06/30/2019 01/12/2020 Assessment & Plan (07/12/2019 11:33 AM CDT): Continues on Labetalol 200mg po BID Growth assessment every 4 weeks Baseline CBC. CMP normal-drawn 06/29/19 Assessment & Plan (06/30/2019 11:29 AM CDT): Continue labetalol 200mg po BID Assess Bps twice daily, reviewed recommendations of when to take BP's with history of uterine myomectomy 9 01/12/2020 Assessment & Plan (06/30/2019 11:28 AM CDT): Hysteroscopic 01/2019 Obesity affecting in first trimester 06/30/2019 01/12/2020 Assessment & Plan (07/12/2019 11:34 AM CDT): Current weight gain 4# Reviewed appropriate caloric intake in and weight gain Assessment & Plan (06/30/2019 11:30 AM CDT): Reviewed weight recommendations 3# weight gain in the thus far Immunizations Immunization Administration Dates Next Due Influenza, Quadrivalent, Spl it, Preservative Free, Intramuscular 08/09/2019 Tdap 11/16/2019 Surgical History Surgery Date Site/Laterality Comments MYOMECTOMY Medical History Medical History Date Comments Fibroid Obesity Gestational diabetes mellitus Hypertension only during preg aleksandr Family History Medical History Relation Name Comments Breast cancer Paternal Grandmother Relation Name Status Comments Paternal Grandmother Social History Tobacco Use Types Packs/Day Years Used Date Smoking Tobacco: Former Cigarettes 0.5 10 Smokeless Tobacco: Never Alcohol Use Standard Drinks/Week Comments Not Currently 0 (1 standard drink = 0.6 oz pur e alcohol) AUDIT-C Answer Date Recorded Q1: How often do you have a drink containing alcohol? Never 06/07/2024 Q2: How many drinks containi ng alcohol do you have on a typical day when you are drinking? Patient does not drink Q3: How often do you have si x or more drinks on one occasion? Never 06/07/2024 Harts Depression Scale Answer Date Recorded Harts Depression Scale Total 15 12/05/2019 The thought of harming myself has occurred to me . Never 12/05/2019 Comments Unknown Sex and Gender Information Value Date Recorded Sex Assigned at Not on file Legal Sex Female 12:12 PM CDT Gender Identity Not on file Sexual Orientation Not on file Obstetrics History Para Term AB IAB SAB Ectopic Multiple Livin g Live Births 1 1 1 0 1 1 Date Outcome GA Total Labor Labor/2nd/3rd Weight Sex Type Anes PTL Marisabel A1 A5 Name Clin 2019 33w 4d 1.935 kg (4 lb 4.3 oz) F CS-LT ranv Spinal Y Livin g 8 9 JOSEMANUEL COLBY,Yesenia Miller MD Complications:Pre eclampsia Delivery Location:This [facility] ([facility] L AND D PROCEDURE) Comments:see ped note Last Filed Vital Signs Vital Sign Reading Time Taken Comments Blood Pressure 141/84 06/07/2024 11:31 AM CDT Pulse 84 06/07/2024 11:31 AM CDT Temperature 37.1 C (98.7 F) 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 Respiratory Rate 18 06/07/2024 11:31 AM CDT Oxygen Saturation 97% 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 Inhaled Oxygen Concentration - - Weight 132.5 kg (292 lb) 06/07/2024 11:31 AM CDT Height 162.6 cm (5' 4) 06/07/2024 11:31 AM CDT Body Mass Index 50.12 06/07/2024 11:31 AM CDT Plan of Treatment Scheduled Procedures Name Priority Associated Diagnoses Date/Ti me SECTION Breech presentation, single or unspecified fetus with history of uterine myomectomy Obesity affecting in first trimester Severe pre-eclampsia, antepartum Health Maintenance Due Date Last Done Comments Breast Cancer Screening-Mammogram 1978 Cervical Cancer Screening 1978 Colon Cancer Screening-Colonoscopy 1978 Hepatitis B Screening 1996 Regular Well Visit/Exam 18-64 1996 Depression Screening 12/05/2020 12/05/2019 Covid-19 Vaccine ( - 2023-2 5 season) 2024 02/17/2021, 01/28/2021 Influenza Vaccine (Season Ended) 2025 08/09/2019 DTaP/Tdap/Td Vaccine (2 - Td or Tdap) 11/16/2029 11/16/2019 Hepatitis C Screening Completed 06/30/2019 HPV Vaccines Aged Out No longer eligi ble based on patient's age to complete this topic Pneumococcal vaccine <65 Aged Out No longer eligible based on patient's age to complete this topic Medical Devices Implanted Type Area Pusher Operator Device Identifier Shelf Expiration Date Model / Serial / Lot [employer] [id number] Seprafilm 6x5in Barrier Adhesion Sterile Disposable Latex Free - [id number] Implanted:Qty: 1 on 11/30/2019 by Markel Horton MD at [facility] [employer] [id number] 05/01/2022 [id number] / / [id number] Procedures Procedure Name Priority Date/Time Associated Diagnosis Comments HEPATITIS C ANTIBODY Routine 06/30/2019 6:04 PM CDT Unspecified high-risk from Last 3 Months or Most Recently Relevant to Health Maintenance Results * Hepatitis C antibody (06/30/2019 6:04 PM CDT) Hep C Ab Non-Reactiv e Non-Reactiv e [facility] Blood specimen (specimen) 06/30/2019 6:04 PM CDT 06/30/2019 7:14 PM CDT us Aminta Melendez NP LAB MICROBIOLOGY - GEN ERAL ORDERABLES Final Result [facility] [address] Department [place] [address] from Last 3 Months or Most Recently Relevant to Health Maintenance Insurance ANTHEM ACCESS CHOICE BLUE ACCESS OOS ANTHEM ACCESS [facility] Advance Directives For more information, please contact: [phone] * Full Code (Latest Code Status on File) Date Activated Date Inactivated Comments 11/30/2019 9:53 PM 12/06/2019 9:16 PM * Full Code Date Activated Date Inactivated Comments 11/30/2019 11:26 AM 11/30/2019 9:53 PM Full CPR in case of cardiopulmonary arrest Care Teams Software Publisher Relationship Specialty Start Date End Date Elvira Glass MD [address] [place] [address] DR [address] [place] [id number] PCP - General Family Medicine 05/07/22
--- OUTSIDE RECORDS SUMMARY | 2025-04-14 08:05 | XMS_ITS | Continuity of Care Document ---
Author Organization [facility] Address [address] [place] [address] Phone Care Team Providers Care Manager Books Name Role Phone John Guerra MD Unavailable Unavailable Allergies, Adverse Reactions, Alerts Substance Reaction Status Criticality No Known Allergies Active No Inform ation Medications Medication Instructions Dosage Effective Dates (start - stop) Status Comments phentermine 37.5 mg tablet take 1 tablet by oral route every day before breakfast 37.5 MG - Active metoprolol succinate ER 50 mg tablet,extended release 24 hr take 1 tablet by oral route every day 50 MG - Active losartan 100 mg-hydrochlorothiaz caitlyn 25 mg tablet take 1 tablet by oral route every day 1.00 tablet - Active albuterol sulfate HFA 90 mcg/actuation aerosol inhaler inhale 1 puff by inhalation route every 4 - 6 hours as needed as needed 1 puff - Active PRN for sob Procedures Procedure Date OFFICE/OUTPATIENT VISIT, EST PREV VISIT, EST, AGE 40-64 OFFICE/OUTPATIENT VISIT, EST OFFICE/OUTPATIENT VISIT, [facility] Advance Directives Directive Yes / No Effective Date File Name No Information Encounters Encounter Description Practice Location Reason(s) For Visit Diagnoses Date Provider Providers Copied on Encounter OFFICE/OUTPA TIENT VISIT, EST [facility], [address] [place] [address], [id number], tel:[phone] [facility] anxiety1 (chief complaint) sleep apnea1 (chief complaint) obesity1 (chief complaint) FatigueGeneralized Anxiety DisorderAbnormal weight gainObstructive sleep apnea hypopnea Feb-0 6-202 5 Charlie Lopez. [address], [place], [place], [id number] , [place]. tel:[phone] PREV VISIT, EST, AGE 40-64 [facility], [address], [place], [place], [id number], [place] tel:[phone] [facility] physical (chief complaint) Encounter for general adult medical exam w abnormal findingsMixed hyperlipidemiaEssen tial (primary) hypertensionGeneral ized Anxiety DisorderAbnormal weight gainFatigue 5 Charlie Lopez. [address], [place], [place], [id number] , [place]. tel:[phone] OFFICE/OUTPA TIENT VISIT, [facility], [address], [place], [place], [id number], [place] tel:[phone] [facility] HTN (chief complaint) COVID1 (chief complaint) anxiety1 (chief complaint) weight gain1 (chief complaint) HLP (chief complaint) Essential (primary) hypertensionMixed hyperlipidemiaGener alized Anxiety DisorderAbnormal weight gainRenal diseaseAcute sinusitis 4 Charlie Lopez. [address], [place], [place], [id number] , [place]. tel:[phone] Family History Family Member Type Diagnosis Age At Onset Mother Problem Alive and well Father Problem of pancreatic CA 64 Sister Problem Alive and well Payers Payer name Insurance type Covered constitution party ID Authoreliua timustapha(s) [facility] CI [id number] Social History Type Description Quantity Date Captured Comments Alcohol Use Details 2 drinks socially Caffeine Use Details Unknown Tobacco Use Status Occasional cigarette smoker Smoking Status Light tobacco smoker Sex Female Vital Signs Date / Time: Height Weight BMI Pulse Rate Blood Pressure Temperature Respiratory Rate Body Surface Area Head Circumference BMI percentile Pulse Ox Inhaled Ox 5:53 PM 64.00 in 295.40 lbs 50.7 0 kg/m eter (2) 70 /min 124/76 mm[Hg] 97.7 F 16 /min Chief Complaint And Reason For Visit From encounter dated '12/08/2024 17:46'. anxiety1 (chief complaint). Description: Pt has history of anxiety and depression Pt has been in the process of weaning off lexapro and lamictal and she has been doing ok in terms of her mood. Pt denies any suicidal or homicidal thought. sleep apnea1 (chief complaint). Description: Pt has mild sleep apnea .Pt feels fatigue. Pt snores at night Pt is interested in cpap obesity1 (chief complaint). Description: Pt is obese. Her BMI is over 50 Pt started phentermine recently She only lost 1 pounds. Pt tolerating it ok Plan Of Treatment Date Type Action Status Referral Ordered: SLEEP STUDY, ATTENDED ordered History Of Present Illness Encounter Date Complaint History Of Prese nt Illness anxiety1 Pt has history o f anxiety and depression Pt has been in the process of weaning off lexapro and lamictal and she has been doing ok in terms of her mood. Pt denies any suicidal or homicidal thought. sleep apnea1 Pt has mild slee p apnea .Pt feels fatigue. Pt snores at night Pt is interested in cpap obesity1 Pt is obese. Her BMI is over 50 Pt started phentermine recently She only lost 1 pounds. Pt tolerating it ok physical Pt needs annual physical Pt has fatigue and snore at night. pt is interested in sleep study. Pt has history of anxiety and depression. Pt is on lexapro and lamictal per psychiatry .Pt is off wellbutrin Pt states that her mood improved and she wants to get off all psychiatry meds. Pt also has difficulty losing weight. Pt did lose some weight with phentermine but she gained it back since off phentermine about one month ago. Pt has HTN. Pt takes metoprolol and losartan/hctz and her bp is ok. Pt denies any other complaints weight gain1 Pt has difficult y losing weight Pt failed diet and exercise. HLP Pt hernandez lab done l ast year which showed borderline high renal and cholesterol HTN Pt has HTN Pt ta kes metoprolol and losartan/hctz and her bp is stable. anxiety1 Pt has chronic a nxiety and depression Pt takes lexapro and wellbutrin and doing ok Pt denies any suicidal or homicidal thought Pt denies any crying spells. COVID1 Pt had COVID two weeks ago and she still feels some sinus congestion and loss of taste and smell. Pt denies any cough or fever or chill or sob. Instructions Date Instruction Additional Infor atul No Information Assessments Type Assessment Date assessment Fatigue assessment Generalized Anxiety Disorder Dec assessment Abnormal weight gain assessment Obstructive sleep apnea hypopnea Mental Status Date Cognitive Assessment Orientation - [place] ed to time, place, person, situation.
--- OUTSIDE RECORDS SUMMARY | 2025-04-14 08:05 | XMS_ITS | Patient Health Record ---
Author Organization [facility] As Distil Interactive Address [address] [place] [address] Care Team Providers Care Manager Simulation Name Role Phone Anh Dwyer Unavailable [phone] CarlosJessenia gallego Unavailable [phone] Allergies No Known Allergies Results Component Value Reference Range Notes UDT Reviewed date:05/30/2024 10:26:17 AM Interpretation: Performing Lab: Notes/Report: THC N 0 - 50 ng/ml Cocaine N 0 - 300 ng/ml Amphetamine N 0 - 1000 ng/ml Buprenorphine (BUP) N 0 - 10 ng/ml Secobarbital (Bar) N 0 - 300 ng/ml Oxazepam (BZO) N 0 - 300 ng/ml 6-unbvoccztj-1,8-gwziiect-2,3-diphenylpyrrolidine (BEREKET P) N 0 - 300 ng/ml Methamphetamine (MET) N 0 - 1000 ng/ml Methylenedioxymethamphetamine (MDMA) N 0 - 500 ng/ml Morphine (MOP 300/[id number]) N 0 - 300 ng/ml Methadone (MTD) N 0 - 300 ng/ml Phencyclidine (PCP) N 0 - 25 ng/ml Nortriptyline (TCA) N 0 - 1000 ng/ml Oxycodone N 0 - 300 ng/ml x N 0 - 300 ng/ml Reason For Referral No Information Medications Medication SIG (Take, Route, Frequency, Duration) Notes Start Date End Date Status lamoTRIgine 25 MG 2 tablet in the morn ing Orally once a day for 90 days Active Escitalopram Oxalate 20 MG 1 tablet Oral ly Once a day for 90 days Active Metoprolol Succinate 50 MG 1 capsule Ora lly Once a day Active Losartan Potassium 25 MG 1 tablet Orally Once a day Active Losartan Potassium 100 MG 1 tablet Orall y Once a day Active Social History Tobacco Use: Social History Observation Description Date Details (start date - stop date) Current Smoker 05/30/2024 - NA Sex Assigned At : Social History Observation Description Sex Assigned At Female Household Question Answer Notes Marital status: Number of adults in household: 2 Number of children in household: 1 daughter Level of education: not finished college Sexual History Question Answer Notes Had sex in the past 12 months (vaginal, oral, or anal)? Yes with Women only Tobacco Control (Standard) Question Answer Notes Tobacco use: Current smoker When did you start smoking? 05/30/2024 How often do you smoke cigarettes? Every day How many cigarettes a day do you smoke? 6-10 How soon after you wake up do you smoke your fir st cigarette? 31-60 minutes Are you interested in quitting? Ready to quit AUDIT-C (Standard) Question Answer Notes Did you have a drink contain ing alcohol in the past year? Yes How often did you have six o r more drinks on one occasion in the past year? 2 to 3 times per week (3 points) How many drinks did you have on a typical day when you were drinking in the past year? 3 or 4 drinks (1 point) How often did you have a dri nk containing alcohol in the past year? 2 to 3 times a week (3 points) Problems Problem Type SNOMED Code ICD Code Onset Dates Problem Status W/U Status Risk Notes Problem 8339274 Primary insomnia (F51.01) Active confirmed Problem Tobacco use (688257267) Tobacco use (Z72.0) Active confirmed Problem 14937142 AURORA (generalized anxiety disorder) (F41.1) Active confirmed Problem 844847069 MDD (major depressive disorder), recurrent episode, moderate (F33.1) Active confirmed Vital Signs Heart Rate 76 /min 09/27/2024 Blood pressure diastolic 117 mm Hg 09/27/2024 Weight-kg 136.08 kg 09/27/2024 Blood pressure systolic 155 mm Hg 09/27/2024 Weight 300.0 lbs 09/27/2024 Encounters Encounter Location Date Provider Diagnosis [address] [facility] [address] [place] [address] 05/30/2024 Anh Thery MDD (major depressive disorder), recurrent episode, moderate F33.1 ; AURORA (generalized anxiety disorder) F41.1 ; Primary insomnia F51.01 and Tobacco use Z72.0 [place] [id number] [place] [address] 06/30/2024 Anh Thergriselda MDD (major depressive disorder), recurrent episode, moderate F33.1 ; AURORA (generalized anxiety disorder) F41.1 ; Primary insomnia F51.01 and Tobacco use Z72.0 [place] [address] [place] [address] 07/28/2024 Anh Thergriselda MDD (major depressive disorder), recurrent episode, moderate F33.1 ; AURORA (generalized anxiety disorder) F41.1 ; Primary insomnia F51.01 and Tobacco use Z72.0 [place] [address] [place] [address] 08/25/2024 Anh Thergriselda MDD (major depressive disorder), recurrent episode, moderate F33.1 ; AURORA (generalized anxiety disorder) F41.1 ; Primary insomnia F51.01 and Tobacco use Z72.0 [facility] [address] [facility] [address] [place] [address] 09/27/2024 Anh Thergriselda MDD (major depressive disorder), recurrent episode, moderate F33.1 ; AURORA (generalized anxiety disorder) F41.1 ; Primary insomnia F51.01 and Tobacco use Z72.0 [place] [address] [place] [address] 05/12/2024 Jessenia Le [place] [address] [place] [address] 08/27/2024 Anh Dwyer [facility], [facility] [address] [place] [address] 08/31/2024 Anh Thery [facility], [place] [address] [place] [address] 10/28/2024 Anh Thergriselda [facility], [place] [address] [place] [address] 11/03/2024 Anh Dwyer Assessments Encounter Date Diagnosis (ICD Code) Assessment Notes Treatment Notes Treatment Clinical Notes Section Notes 08/25/2024 MDD (major depressive disorder), recurrent episode, moderate (ICD-10 - F33.1) Preventing Depression From Coming Back: Care Instructions material was published, Seasonal Affective Disorder: Care Instructions material was published, Depression Treatment: Care Instructions material was published, Learning About Depression material was published Depression- Lexapro 20 mg daily educated on all rx refer to therapy UMAIR DISCUSS and educated on Lamotrigine - Lamotrigine 50 mg daily discuss and educated on Wellbutrin for depression and also help stop smoking- Lamotrigine lamotrigine has a serious rashes requiring hospitalization and discontinue treatment including Jose Rory syndrome rare case of toxic epidermal necrolysis and cache related deaths. Incidence with adjunct of epilepsy treatment 0.8% in 2 to 16 years old and 0.3% in adults, bipolar and other mood disorders incidence 0.8% this initial monotherapy and 0.13% as adjunctive treatment. Other risk factor may include concomitant use of valproate acid derivative or exceeding initial lamotrigine does or does as clinician recommendation; most life-threatening rash of occurring first 2 to 8 week of treatment with isolated cases after prolonged treatment; though benign may occur, discontinue treatment at first sign of rash unless clearly not a drug related; TC treatment may not prevent trash from becoming life-threatening or permanently disabling or disfiguring. Comment reaction include, nausea/vomiting, dizziness/vertigo, visual disturbances, somnolence, ataxia, pruritus/rash, pharyngitis, headache, rhinitis, diarrhea, fever, asthenia, insomnia, tremor, abdominal pain, cough, accidental injury, constipation, dysmenorrhea, incoordination, anxiety, seizures, irritability, anorexia, xerostomia, and photosensitivity. Serious reactions include: Rash, severe; St Rory syndrome; toxic epidermal necrosis; injury edema, hypersensitivity reactions. Including fatal, multiple organ failure to safe fatal, rash with eosinophilia systemic symptoms, DIC, neutropenia, leukopenia, thrombocytopenia, pancytopenia, aplastic anemia, hemolytic anemia, i pancreatitis, hepatic failure, rhabdomyolysis, worsening of suicidal ideation, worsening of depression, cleft lip/palate [first trimester use] DO not Change Cosmetic, perfumes or soap for next 4 weeks. The patient was advice to take lamotrigine as prescribed the patient was instructed not to deviate from the prescription dosages. Stop lamotrigine is the first sign of rash. Patient was insisted to inform office if any of the serious side effect develops. discuss therapy - Refer [facility] for therapy WELLBUTRIN XL 150 mg in am - may plan to top in near future Yuly 30 days today [facility] for 90 days sweating on Wellbutrin 300 mg dose Anxiety- Lexapro 20 mg daily Insomnia- Melatonin 1-3 mg at bedtime OTC Tobacco use- smoking cessation- stopped smoking 07/11/24 https://www.neva.or g/Wiiax-Ftamzg-Kgcq ess/Mqupnm-Dxycsk-J onditions https://www.FitStar/cannabis-u nn-slmirzby-kjpotzr na-adhd/ https://[employer]/depression/th w-sxpghxgee-jgeybbq n-nn-qtpgliwvei#alysa atments http_s://www.nim.n ih.gov/health/topic s/lrwwmx-huoswr-xxb ications http_s://www.neva.o rg/Zdlxt-Fzeqsq-Pyo ness/Treatments/Men emm-Fszbts-Eyfowmzu ons Recommend decrease/stop cannabis use as it may be negatively impacting mood, motivation, anxiety, sleep, focus; can also contribute to development of psychosis Patient educated on all medications including potential benefits, side effects, risks. Educated on proper dosing schedule and importance of compliance educated on all medications, benefits, side effects and risk, and educated on depression, anxiety, and ADHD, mood d/o and educated on compliance of medications, metabolic and movement d/o education appointment is, continue therapy discussion with patient about course of treatment and patient instructions. education on serotonin syndrome SSRI/SNRI side effects discussed including but not limited to, gastric upset, nausea, vomiting, diarrhea and/or constipation, weight changes, sexual side effects including loss of libido, increased suicidal thoughts/behaviors in children and young adults, and serotonin syndrome. Second generation antipsychotics (SGAs) have metabolic syndrome issues with weight gain, increase in prolactin, increased waist circumference, increased lipids, and increased glucose. Thus routine monitoring of weight, metabolic labs, etc. is indicated. A general rank ordering of antipsychotics that have the greatest to the least risk of metabolic effects is olanzapine, quetiapine, risperidone, ziprasidone, and aripiprazole. However, weight gain can occur with all of these drugs and considerable variability exists among patients receiving the same drug regarding the risk of metabolic effects. Anti-psychotic agents not only increase the risk of metabolic disorder, they also increase the risk of CVA, akathisia, and movement disorders including EPS or tardive dyskinesia (more common with first generation antipsychotics) and more. 05/30/2024 AURORA (generalized anxiety disorder) (ICD-10 - F41.1) Learning About Generalized Anxiety Disorder material was published, Generalized Anxiety Disorder: Care Instructions material was published, Learning About Anxiety Disorders material was published, Learning About Transcranial Magnetic Stimulation (TMS) material was published Depression- Lexapro 20 mg daily NO REFILL NEEDED TODAY educated on all rx discuss and educated on Wellbutrin for depression and also help stop smoking discuss therapy - will consider Pearl or Aminta for therapy Will add WELLBUTRIN XL 150 mg in am - [facility] 30 days today [facility] for 90 days Anxiety- Lexapro 20 mg daily Insomnia- Melatonin 1-3 mg at bedtime OTC Tobacco use- smoking cessation plan to stop Labor Day decrease use https://www.neva.or g/Xmufs-Hfagij-Jxek ess/Iinvqf-Jluddr-C onditions https://www.FitStar/cannabis-u ih-auldrpak-nismnww na-adhd/ https://psychcentCreditablecom/depression/th v-pyalwezqx-xhyqsyi j-ki-kjcnsmwhvi#alysa atments http_s://www.nimh.n ih.gov/health/topic s/oqmlvd-rnbwww-wyc ications http_s://www.neva.o rg/Zykcl-Pubpnr-Fym ness/Treatments/Men lti-Fdlzon-Kqkmyfqd ons Recommend decrease/stop cannabis use as it may be negatively impacting mood, motivation, anxiety, sleep, focus; can also contribute to development of psychosis Patient educated on all medications including potential benefits, side effects, risks. Educated on proper dosing schedule and importance of compliance educated on all medications, benefits, side effects and risk, and educated on depression, anxiety, and ADHD, mood d/o and educated on compliance of medications, metabolic and movement d/o education appointment is, continue therapy discussion with patient about course of treatment and patient instructions. education on serotonin syndrome SSRI/SNRI side effects discussed including but not limited to, gastric upset, nausea, vomiting, diarrhea and/or constipation, weight changes, sexual side effects including loss of libido, increased suicidal thoughts/behaviors in children and young adults, and serotonin syndrome. Second generation antipsychotics (SGAs) have metabolic syndrome issues with weight gain, increase in prolactin, increased waist circumference, increased lipids, and increased glucose. Thus routine monitoring of weight, metabolic labs, etc. is indicated. A general rank ordering of antipsychotics that have the greatest to the least risk of metabolic effects is olanzapine, quetiapine, risperidone, ziprasidone, and aripiprazole. However, weight gain can occur with all of these drugs and considerable variability exists among patients receiving the same drug regarding the risk of metabolic effects. Anti-psychotic agents not only increase the risk of metabolic disorder, they also increase the risk of CVA, akathisia, and movement disorders including EPS or tardive dyskinesia (more common with first generation antipsychotics) and more. 05/30/2024 MDD (major depressive disorder), recurrent episode, moderate (ICD-10 - F33.1) Preventing Depression From Coming Back: Care Instructions material was published, Seasonal Affective Disorder: Care Instructions material was published, Depression Treatment: Care Instructions material was published, Learning About Depression material was published Depression- Lexapro 20 mg daily NO REFILL NEEDED TODAY educated on all rx discuss and educated on Wellbutrin for depression and also help stop smoking discuss therapy - will consider Pearl or Aminta for therapy Will add WELLBUTRIN XL 150 mg in am - [facility] 30 days today [facility] for 90 days Anxiety- Lexapro 20 mg daily Insomnia- Melatonin 1-3 mg at bedtime OTC Tobacco use- smoking cessation plan to stop Labor Day decrease use https://www.neva.or g/Bplht-Fcctyp-Wtdt ess/Mbtrgz-Kytkzg-G onditions https://www.Sferraitud GoInformatics.com/cannabis-u ub-bquqcmlo-hnrsixd na-adhd/ https://psychcentra l.com/depression/th v-uohsoxmau-vtxcftf w-ky-lzccqatrmo#alysa atments http_s://www.nimh.n ih.gov/health/topic s/caazah-fomysr-ibm ications http_s://www.neva.o rg/Zqgjs-Jrpwyd-Pez ness/Treatments/Men hya-Jmqxqk-Cyixfhwa ons Recommend decrease/stop cannabis use as it may be negatively impacting mood, motivation, anxiety, sleep, focus; can also contribute to development of psychosis Patient educated on all medications including potential benefits, side effects, risks. Educated on proper dosing schedule and importance of compliance educated on all medications, benefits, side effects and risk, and educated on depression, anxiety, and ADHD, mood d/o and educated on compliance of medications, metabolic and movement d/o education appointment is, continue therapy discussion with patient about course of treatment and patient instructions. education on serotonin syndrome SSRI/SNRI side effects discussed including but not limited to, gastric upset, nausea, vomiting, diarrhea and/or constipation, weight changes, sexual side effects including loss of libido, increased suicidal thoughts/behaviors in children and young adults, and serotonin syndrome. Second generation antipsychotics (SGAs) have metabolic syndrome issues with weight gain, increase in prolactin, increased waist circumference, increased lipids, and increased glucose. Thus routine monitoring of weight, metabolic labs, etc. is indicated. A general rank ordering of antipsychotics that have the greatest to the least risk of metabolic effects is olanzapine, quetiapine, risperidone, ziprasidone, and aripiprazole. However, weight gain can occur with all of these drugs and considerable variability exists among patients receiving the same drug regarding the risk of metabolic effects. Anti-psychotic agents not only increase the risk of metabolic disorder, they also increase the risk of CVA, akathisia, and movement disorders including EPS or tardive dyskinesia (more common with first generation antipsychotics) and more. 07/28/2024 MDD (major depressive disorder), recurrent episode, moderate (ICD-10 - F33.1) Preventing Depression From Coming Back: Care Instructions material was published, Seasonal Affective Disorder: Care Instructions material was published, Depression Treatment: Care Instructions material was published, Learning About Depression material was published Depression- Lexapro 20 mg daily NO REFILL NEEDED TODAY educated on all rx DISCUSS and educated on Lamotrigine - add Lamotrigine 25 mg daily foe 2 weeks then increase Lamotrigine to 50 mg daily discuss and educated on Wellbutrin for depression and also help stop smoking- patient stopped smoking with COVID 07/11/24 Lamotrigine lamotrigine has a serious rashes requiring hospitalization and discontinue treatment including Jose Rory syndrome rare case of toxic epidermal necrolysis and cache related deaths. Incidence with adjunct of epilepsy treatment 0.8% in 2 to 16 years old and 0.3% in adults, bipolar and other mood disorders incidence 0.8% this initial monotherapy and 0.13% as adjunctive treatment. Other risk factor may include concomitant use of valproate acid derivative or exceeding initial lamotrigine does or does as clinician recommendation; most life-threatening rash of occurring first 2 to 8 week of treatment with isolated cases after prolonged treatment; though benign may occur, discontinue treatment at first sign of rash unless clearly not a drug related; TC treatment may not prevent trash from becoming life-threatening or permanently disabling or disfiguring. Comment reaction include, nausea/vomiting, dizziness/vertigo, visual disturbances, somnolence, ataxia, pruritus/rash, pharyngitis, headache, rhinitis, diarrhea, fever, asthenia, insomnia, tremor, abdominal pain, cough, accidental injury, constipation, dysmenorrhea, incoordination, anxiety, seizures, irritability, anorexia, xerostomia, and photosensitivity. Serious reactions include: Rash, severe; St Rory syndrome; toxic epidermal necrosis; injury edema, hypersensitivity reactions. Including fatal, multiple organ failure to safe fatal, rash with eosinophilia systemic symptoms, DIC, neutropenia, leukopenia, thrombocytopenia, pancytopenia, aplastic anemia, hemolytic anemia, i pancreatitis, hepatic failure, rhabdomyolysis, worsening of suicidal ideation, worsening of depression, cleft lip/palate [first trimester use] DO not Change Cosmetic, perfumes or soap for next 4 weeks. The patient was advice to take lamotrigine as prescribed the patient was instructed not to deviate from the prescription dosages. Stop lamotrigine is the first sign of rash. Patient was insisted to inform office if any of the serious side effect develops. discuss therapy - will consider Pearl or Aminta for therapy Will decrease WELLBUTRIN XL 150 mg in am - may plan to top in near future [facility] 30 days today [facility] for 90 days sweating on Wellbutrin 300 mg dose Anxiety- Lexapro 20 mg daily Insomnia- Melatonin 1-3 mg at bedtime OTC Tobacco use- smoking cessation- stopped smoking 07/11/24 https://www.neva.or g/Koiex-Kjszlu-Luur ess/Sdgenx-Uskyjh-D onditions https://www.Axeda.com/cannabis-u at-whultrtu-nxrpuca na-adhd/ https://psychcentra l.com/depression/th i-rkhkhszop-ckvlukp z-ef-tselsygqtw#alsya atments http_s://www.[facility].n ih.gov/health/topic s/zqumjl-zgebts-ehs ications http_s://www.neva.o rg/Jhgcc-Cifssw-Wrb ness/Treatments/Men jor-Rkwewo-Weoabpti ons Recommend decrease/stop cannabis use as it may be negatively impacting mood, motivation, anxiety, sleep, focus; can also contribute to development of psychosis Patient educated on all medications including potential benefits, side effects, risks. Educated on proper dosing schedule and importance of compliance educated on all medications, benefits, side effects and risk, and educated on depression, anxiety, and ADHD, mood d/o and educated on compliance of medications, metabolic and movement d/o education appointment is, continue therapy discussion with patient about course of treatment and patient instructions. education on serotonin syndrome SSRI/SNRI side effects discussed including but not limited to, gastric upset, nausea, vomiting, diarrhea and/or constipation, weight changes, sexual side effects including loss of libido, increased suicidal thoughts/behaviors in children and young adults, and serotonin syndrome. Second generation antipsychotics (SGAs) have metabolic syndrome issues with weight gain, increase in prolactin, increased waist circumference, increased lipids, and increased glucose. Thus routine monitoring of weight, metabolic labs, etc. is indicated. A general rank ordering of antipsychotics that have the greatest to the least risk of metabolic effects is olanzapine, quetiapine, risperidone, ziprasidone, and aripiprazole. However, weight gain can occur with all of these drugs and considerable variability exists among patients receiving the same drug regarding the risk of metabolic effects. Anti-psychotic agents not only increase the risk of metabolic disorder, they also increase the risk of CVA, akathisia, and movement disorders including EPS or tardive dyskinesia (more common with first generation antipsychotics) and more. 06/30/2024 MDD (major depressive disorder), recurrent episode, moderate (ICD-10 - F33.1) Preventing Depression From Coming Back: Care Instructions material was published, Seasonal Affective Disorder: Care Instructions material was published, Depression Treatment: Care Instructions material was published, Learning About Depression material was published Depression- Lexapro 20 mg daily NO REFILL NEEDED TODAY educated on all rx discuss and educated on Wellbutrin for depression and also help stop smoking discuss therapy - will consider [facility] or Aminta for therapy Will increase WELLBUTRIN XL 300 mg in am - [facility] 30 days today [facility] for 90 days Anxiety- Lexapro 20 mg daily Insomnia- Melatonin 1-3 mg at bedtime OTC Tobacco use- smoking cessation plan to stop Labor Day decrease use https://www.neva.or g/Zoxod-Uslqdq-Xvyf ess/Gwetsh-Svsryn-L onditions https://www.FitStar/cannabis-u ti-nriomjrk-yakqgmq na-adhd/ https://[employer]/depression/th x-ynmyqflpr-fbecofd c-nl-mmuoeontvf#alysa atments http_s://www.nimh.n ih.gov/health/topic s/cfhmpq-lobjbi-vio ications http_s://www.neva.o rg/Opkfu-Sjtxcn-Vym ness/Treatments/Men euz-Ijrxum-Ozxtfuie ons Recommend decrease/stop cannabis use as it may be negatively impacting mood, motivation, anxiety, sleep, focus; can also contribute to development of psychosis Patient educated on all medications including potential benefits, side effects, risks. Educated on proper dosing schedule and importance of compliance educated on all medications, benefits, side effects and risk, and educated on depression, anxiety, and ADHD, mood d/o and educated on compliance of medications, metabolic and movement d/o education appointment is, continue therapy discussion with patient about course of treatment and patient instructions. education on serotonin syndrome SSRI/SNRI side effects discussed including but not limited to, gastric upset, nausea, vomiting, diarrhea and/or constipation, weight changes, sexual side effects including loss of libido, increased suicidal thoughts/behaviors in children and young adults, and serotonin syndrome. Second generation antipsychotics (SGAs) have metabolic syndrome issues with weight gain, increase in prolactin, increased waist circumference, increased lipids, and increased glucose. Thus routine monitoring of weight, metabolic labs, etc. is indicated. A general rank ordering of antipsychotics that have the greatest to the least risk of metabolic effects is olanzapine, quetiapine, risperidone, ziprasidone, and aripiprazole. However, weight gain can occur with all of these drugs and considerable variability exists among patients receiving the same drug regarding the risk of metabolic effects. Anti-psychotic agents not only increase the risk of metabolic disorder, they also increase the risk of CVA, akathisia, and movement disorders including EPS or tardive dyskinesia (more common with first generation antipsychotics) and more. 09/27/2024 MDD (major depressive disorder), recurrent episode, moderate (ICD-10 - F33.1) Preventing Depression From Coming Back: Care Instructions material was published, Seasonal Affective Disorder: Care Instructions material was published, Depression Treatment: Care Instructions material was published, Learning About Depression material was published Depression- Lexapro 20 mg daily- no refill needed today educated on all rx patient would like to wean off rx and see how she does refer to therapy [facility] DISCUSS and educated on Lamotrigine - Lamotrigine 50 mg daily discuss and educated on Wellbutrin for depression and also help stop smoking- Lamotrigine lamotrigine has a serious rashes requiring hospitalization and discontinue treatment including Jose Rory syndrome rare case of toxic epidermal necrolysis and cache related deaths. Incidence with adjunct of epilepsy treatment 0.8% in 2 to 16 years old and 0.3% in adults, bipolar and other mood disorders incidence 0.8% this initial monotherapy and 0.13% as adjunctive treatment. Other risk factor may include concomitant use of valproate acid derivative or exceeding initial lamotrigine does or does as clinician recommendation; most life-threatening rash of occurring first 2 to 8 week of treatment with isolated cases after prolonged treatment; though benign may occur, discontinue treatment at first sign of rash unless clearly not a drug related; TC treatment may not prevent trash from becoming life-threatening or permanently disabling or disfiguring. Comment reaction include, nausea/vomiting, dizziness/vertigo, visual disturbances, somnolence, ataxia, pruritus/rash, pharyngitis, headache, rhinitis, diarrhea, fever, asthenia, insomnia, tremor, abdominal pain, cough, accidental injury, constipation, dysmenorrhea, incoordination, anxiety, seizures, irritability, anorexia, xerostomia, and photosensitivity. Serious reactions include: Rash, severe; St Rory syndrome; toxic epidermal necrosis; injury edema, hypersensitivity reactions. Including fatal, multiple organ failure to safe fatal, rash with eosinophilia systemic symptoms, DIC, neutropenia, leukopenia, thrombocytopenia, pancytopenia, aplastic anemia, hemolytic anemia, i pancreatitis, hepatic failure, rhabdomyolysis, worsening of suicidal ideation, worsening of depression, cleft lip/palate [first trimester use] DO not Change Cosmetic, perfumes or soap for next 4 weeks. The patient was advice to take lamotrigine as prescribed the patient was instructed not to deviate from the prescription dosages. Stop lamotrigine is the first sign of rash. Patient was insisted to inform office if any of the serious side effect develops. plan to see PCP- labsand about sweating and weight gain scheduled 10/25 discuss therapy - Refer [facility] for therapy D/C WELLBUTRIN XL 150 mg in am - Patient wants to wean off all rx [facility] 30 days today [facility] for 90 days sweating on Wellbutrin 300 mg dose Anxiety- Lexapro 20 mg daily Insomnia- Melatonin 1-3 mg at bedtime OTC Tobacco use- smoking cessation- stopped smoking educated smokes 4 cig a day https://www.neva.or g/Wraph-Idgoji-Tcmp ess/Xihtsa-Ejoyfm-V onditions https://www.FitStar/cannabis-u qn-sqijkdlv-cirycwh na-adhd/ https://psychGeospiza/depression/th z-jyghrgbdi-gszfbkc v-qf-gvvudxkyde#alysa atments http_s://www.nimh.n ih.gov/health/topic s/zwxpat-rlhliq-wzs ications http_s://www.neva.o rg/Nbfqe-Twsoqy-Lsn ness/Treatments/Men tqd-Vvdlqx-Ntngoloy ons Recommend decrease/stop cannabis use as it may be negatively impacting mood, motivation, anxiety, sleep, focus; can also contribute to development of psychosis Patient educated on all medications including potential benefits, side effects, risks. Educated on proper dosing schedule and importance of compliance educated on all medications, benefits, side effects and risk, and educated on depression, anxiety, and ADHD, mood d/o and educated on compliance of medications, metabolic and movement d/o education appointment is, continue therapy discussion with patient about course of treatment and patient instructions. education on serotonin syndrome SSRI/SNRI side effects discussed including but not limited to, gastric upset, nausea, vomiting, diarrhea and/or constipation, weight changes, sexual side effects including loss of libido, increased suicidal thoughts/behaviors in children and young adults, and serotonin syndrome. Second generation antipsychotics (SGAs) have metabolic syndrome issues with weight gain, increase in prolactin, increased waist circumference, increased lipids, and increased glucose. Thus routine monitoring of weight, metabolic labs, etc. is indicated. A general rank ordering of antipsychotics that have the greatest to the least risk of metabolic effects is olanzapine, quetiapine, risperidone, ziprasidone, and aripiprazole. However, weight gain can occur with all of these drugs and considerable variability exists among patients receiving the same drug regarding the risk of metabolic effects. Anti-psychotic agents not only increase the risk of metabolic disorder, they also increase the risk of CVA, akathisia, and movement disorders including EPS or tardive dyskinesia (more common with first generation antipsychotics) and more. 06/30/2024 [facility] (generalized anxiety disorder) (ICD-10 - F41.1) Learning About Generalized Anxiety Disorder material was published, Generalized Anxiety Disorder: Care Instructions material was published, Learning About Anxiety Disorders material was published, Learning About Transcranial Magnetic Stimulation (TMS) material was published Depression- Lexapro 20 mg daily NO REFILL NEEDED TODAY educated on all rx discuss and educated on Wellbutrin for depression and also help stop smoking discuss therapy - will consider [facility] or [facility] for therapy Will increase WELLBUTRIN XL 300 mg in am - [facility] 30 days today [facility] for 90 days Anxiety- Lexapro 20 mg daily Insomnia- Melatonin 1-3 mg at bedtime OTC Tobacco use- smoking cessation plan to stop Labor Day decrease use https://www.neva.or g/Ilwgb-Zbvxpl-Gwwb ess/Xmzcee-Xlaqez-W onditions https://www.FitStar/cannabis-u xl-weqxibtj-ldwlwun na-adhd/ https://psychcentra l.com/depression/th x-clrrkyjzb-zrokifj t-ue-wwsmbmnxlc#alysa atments http_s://www.nimh.n ih.gov/health/topic s/kgrrwx-rfucfq-sbf ications http_s://www.neva.o rg/Tdbwb-Lcvvop-Rke ness/Treatments/Men lws-Tcwpap-Yohugapa ons Recommend decrease/stop cannabis use as it may be negatively impacting mood, motivation, anxiety, sleep, focus; can also contribute to development of psychosis Patient educated on all medications including potential benefits, side effects, risks. Educated on proper dosing schedule and importance of compliance educated on all medications, benefits, side effects and risk, and educated on depression, anxiety, and ADHD, mood d/o and educated on compliance of medications, metabolic and movement d/o education appointment is, continue therapy discussion with patient about course of treatment and patient instructions. education on serotonin syndrome SSRI/SNRI side effects discussed including but not limited to, gastric upset, nausea, vomiting, diarrhea and/or constipation, weight changes, sexual side effects including loss of libido, increased suicidal thoughts/behaviors in children and young adults, and serotonin syndrome. Second generation antipsychotics (SGAs) have metabolic syndrome issues with weight gain, increase in prolactin, increased waist circumference, increased lipids, and increased glucose. Thus routine monitoring of weight, metabolic labs, etc. is indicated. A general rank ordering of antipsychotics that have the greatest to the least risk of metabolic effects is olanzapine, quetiapine, risperidone, ziprasidone, and aripiprazole. However, weight gain can occur with all of these drugs and considerable variability exists among patients receiving the same drug regarding the risk of metabolic effects. Anti-psychotic agents not only increase the risk of metabolic disorder, they also increase the risk of CVA, akathisia, and movement disorders including EPS or tardive dyskinesia (more common with first generation antipsychotics) and more. 09/27/2024 [facility] (generalized anxiety disorder) (ICD-10 - F41.1) Learning About Generalized Anxiety Disorder material was published, Generalized Anxiety Disorder: Care Instructions material was published, Learning About Anxiety Disorders material was published, Learning About Transcranial Magnetic Stimulation (TMS) material was published Depression- Lexapro 20 mg daily- no refill needed today educated on all rx patient would like to wean off rx and see how she does refer to therapy [facility] DISCUSS and educated on Lamotrigine - Lamotrigine 50 mg daily discuss and educated on Wellbutrin for depression and also help stop smoking- Lamotrigine lamotrigine has a serious rashes requiring hospitalization and discontinue treatment including Jose Rory syndrome rare case of toxic epidermal necrolysis and cache related deaths. Incidence with adjunct of epilepsy treatment 0.8% in 2 to 16 years old and 0.3% in adults, bipolar and other mood disorders incidence 0.8% this initial monotherapy and 0.13% as adjunctive treatment. Other risk factor may include concomitant use of valproate acid derivative or exceeding initial lamotrigine does or does as clinician recommendation; most life-threatening rash of occurring first 2 to 8 week of treatment with isolated cases after prolonged treatment; though benign may occur, discontinue treatment at first sign of rash unless clearly not a drug related; TC treatment may not prevent trash from becoming life-threatening or permanently disabling or disfiguring. Comment reaction include, nausea/vomiting, dizziness/vertigo, visual disturbances, somnolence, ataxia, pruritus/rash, pharyngitis, headache, rhinitis, diarrhea, fever, asthenia, insomnia, tremor, abdominal pain, cough, accidental injury, constipation, dysmenorrhea, incoordination, anxiety, seizures, irritability, anorexia, xerostomia, and photosensitivity. Serious reactions include: Rash, severe; St Rory syndrome; toxic epidermal necrosis; injury edema, hypersensitivity reactions. Including fatal, multiple organ failure to safe fatal, rash with eosinophilia systemic symptoms, DIC, neutropenia, leukopenia, thrombocytopenia, pancytopenia, aplastic anemia, hemolytic anemia, i pancreatitis, hepatic failure, rhabdomyolysis, worsening of suicidal ideation, worsening of depression, cleft lip/palate [first trimester use] DO not Change Cosmetic, perfumes or soap for next 4 weeks. The patient was advice to take lamotrigine as prescribed the patient was instructed not to deviate from the prescription dosages. Stop lamotrigine is the first sign of rash. Patient was insisted to inform office if any of the serious side effect develops. plan to see PCP- labsand about sweating and weight gain scheduled 10/25 discuss therapy - Refer [facility] for therapy D/C WELLBUTRIN XL 150 mg in am - Patient wants to wean off all rx [facility] 30 days today [facility] for 90 days sweating on Wellbutrin 300 mg dose Anxiety- Lexapro 20 mg daily Insomnia- Melatonin 1-3 mg at bedtime OTC Tobacco use- smoking cessation- stopped smoking educated smokes 4 cig a day https://www.neva.or g/Buvtz-Nhwhqv-Ufro ess/Teciia-Csxjie-U onditions https://www.additud GoInformatics.com/cannabis-u wc-yczuffin-qmlnqec na-adhd/ https://psychcentra l.com/depression/th x-ljxxizden-dflymjj u-ms-dcbfkqhovm#alysa atments http_s://www.nimh.n ih.gov/health/topic s/ktlnbh-eneqbq-izz ications http_s://www.neva.o rg/Gkpbx-Rcfdks-Mtk ness/Treatments/Men rkp-Clfelo-Noogleag ons Recommend decrease/stop cannabis use as it may be negatively impacting mood, motivation, anxiety, sleep, focus; can also contribute to development of psychosis Patient educated on all medications including potential benefits, side effects, risks. Educated on proper dosing schedule and importance of compliance educated on all medications, benefits, side effects and risk, and educated on depression, anxiety, and ADHD, mood d/o and educated on compliance of medications, metabolic and movement d/o education appointment is, continue therapy discussion with patient about course of treatment and patient instructions. education on serotonin syndrome SSRI/SNRI side effects discussed including but not limited to, gastric upset, nausea, vomiting, diarrhea and/or constipation, weight changes, sexual side effects including loss of libido, increased suicidal thoughts/behaviors in children and young adults, and serotonin syndrome. Second generation antipsychotics (SGAs) have metabolic syndrome issues with weight gain, increase in prolactin, increased waist circumference, increased lipids, and increased glucose. Thus routine monitoring of weight, metabolic labs, etc. is indicated. A general rank ordering of antipsychotics that have the greatest to the least risk of metabolic effects is olanzapine, quetiapine, risperidone, ziprasidone, and aripiprazole. However, weight gain can occur with all of these drugs and considerable variability exists among patients receiving the same drug regarding the risk of metabolic effects. Anti-psychotic agents not only increase the risk of metabolic disorder, they also increase the risk of CVA, akathisia, and movement disorders including EPS or tardive dyskinesia (more common with first generation antipsychotics) and more. 08/25/2024 [facility] (generalized anxiety disorder) (ICD-10 - F41.1) Learning About Generalized Anxiety Disorder material was published, Generalized Anxiety Disorder: Care Instructions material was published, Learning About Anxiety Disorders material was published, Learning About Transcranial Magnetic Stimulation (TMS) material was published Depression- Lexapro 20 mg daily educated on all rx refer to therapy [facility] DISCUSS and educated on Lamotrigine - Lamotrigine 50 mg daily discuss and educated on Wellbutrin for depression and also help stop smoking- Lamotrigine lamotrigine has a serious rashes requiring hospitalization and discontinue treatment including Jose Rory syndrome rare case of toxic epidermal necrolysis and cache related deaths. Incidence with adjunct of epilepsy treatment 0.8% in 2 to 16 years old and 0.3% in adults, bipolar and other mood disorders incidence 0.8% this initial monotherapy and 0.13% as adjunctive treatment. Other risk factor may include concomitant use of valproate acid derivative or exceeding initial lamotrigine does or does as clinician recommendation; most life-threatening rash of occurring first 2 to 8 week of treatment with isolated cases after prolonged treatment; though benign may occur, discontinue treatment at first sign of rash unless clearly not a drug related; TC treatment may not prevent trash from becoming life-threatening or permanently disabling or disfiguring. Comment reaction include, nausea/vomiting, dizziness/vertigo, visual disturbances, somnolence, ataxia, pruritus/rash, pharyngitis, headache, rhinitis, diarrhea, fever, asthenia, insomnia, tremor, abdominal pain, cough, accidental injury, constipation, dysmenorrhea, incoordination, anxiety, seizures, irritability, anorexia, xerostomia, and photosensitivity. Serious reactions include: Rash, severe; St Rory syndrome; toxic epidermal necrosis; injury edema, hypersensitivity reactions. Including fatal, multiple organ failure to safe fatal, rash with eosinophilia systemic symptoms, DIC, neutropenia, leukopenia, thrombocytopenia, pancytopenia, aplastic anemia, hemolytic anemia, i pancreatitis, hepatic failure, rhabdomyolysis, worsening of suicidal ideation, worsening of depression, cleft lip/palate [first trimester use] DO not Change Cosmetic, perfumes or soap for next 4 weeks. The patient was advice to take lamotrigine as prescribed the patient was instructed not to deviate from the prescription dosages. Stop lamotrigine is the first sign of rash. Patient was insisted to inform office if any of the serious side effect develops. discuss therapy - Refer [facility] for therapy WELLBUTRIN XL 150 mg in am - may plan to top in near future [facility] 30 days today [facility] for 90 days sweating on Wellbutrin 300 mg dose Anxiety- Lexapro 20 mg daily Insomnia- Melatonin 1-3 mg at bedtime OTC Tobacco use- smoking cessation- stopped smoking 07/11/24 https://www.neva.or g/Ugjgg-Qbpbwq-Yzqq ess/Lizlla-Aeaqyd-S onditions https://www.Axeda.com/cannabis-u jr-yucgascc-wmqzfzw na-adhd/ https://psychcentCreditablecom/depression/th h-ietmdwroo-icxpxhg r-lo-rgjoovpvxk#alysa atments http_s://www.nimh.n ih.gov/health/topic s/inzzci-oscuwb-dkm ications http_s://www.neva.o rg/Mazuq-Jrmtgt-Ulv ness/Treatments/Men bwt-Ynwvka-Hijwerif ons Recommend decrease/stop cannabis use as it may be negatively impacting mood, motivation, anxiety, sleep, focus; can also contribute to development of psychosis Patient educated on all medications including potential benefits, side effects, risks. Educated on proper dosing schedule and importance of compliance educated on all medications, benefits, side effects and risk, and educated on depression, anxiety, and ADHD, mood d/o and educated on compliance of medications, metabolic and movement d/o education appointment is, continue therapy discussion with patient about course of treatment and patient instructions. education on serotonin syndrome SSRI/SNRI side effects discussed including but not limited to, gastric upset, nausea, vomiting, diarrhea and/or constipation, weight changes, sexual side effects including loss of libido, increased suicidal thoughts/behaviors in children and young adults, and serotonin syndrome. Second generation antipsychotics (SGAs) have metabolic syndrome issues with weight gain, increase in prolactin, increased waist circumference, increased lipids, and increased glucose. Thus routine monitoring of weight, metabolic labs, etc. is indicated. A general rank ordering of antipsychotics that have the greatest to the least risk of metabolic effects is olanzapine, quetiapine, risperidone, ziprasidone, and aripiprazole. However, weight gain can occur with all of these drugs and considerable variability exists among patients receiving the same drug regarding the risk of metabolic effects. Anti-psychotic agents not only increase the risk of metabolic disorder, they also increase the risk of CVA, akathisia, and movement disorders including EPS or tardive dyskinesia (more common with first generation antipsychotics) and more. 07/28/2024 [facility] (generalized anxiety disorder) (ICD-10 - F41.1) Learning About Generalized Anxiety Disorder material was published, Generalized Anxiety Disorder: Care Instructions material was published, Learning About Anxiety Disorders material was published, Learning About Transcranial Magnetic Stimulation (TMS) material was published Depression- Lexapro 20 mg daily NO REFILL NEEDED TODAY educated on all rx DISCUSS and educated on Lamotrigine - add Lamotrigine 25 mg daily foe 2 weeks then increase Lamotrigine to 50 mg daily discuss and educated on Wellbutrin for depression and also help stop smoking- patient stopped smoking with COVID 07/11/24 Lamotrigine lamotrigine has a serious rashes requiring hospitalization and discontinue treatment including Jose Rory syndrome rare case of toxic epidermal necrolysis and cache related deaths. Incidence with adjunct of epilepsy treatment 0.8% in 2 to 16 years old and 0.3% in adults, bipolar and other mood disorders incidence 0.8% this initial monotherapy and 0.13% as adjunctive treatment. Other risk factor may include concomitant use of valproate acid derivative or exceeding initial lamotrigine does or does as clinician recommendation; most life-threatening rash of occurring first 2 to 8 week of treatment with isolated cases after prolonged treatment; though benign may occur, discontinue treatment at first sign of rash unless clearly not a drug related; TC treatment may not prevent trash from becoming life-threatening or permanently disabling or disfiguring. Comment reaction include, nausea/vomiting, dizziness/vertigo, visual disturbances, somnolence, ataxia, pruritus/rash, pharyngitis, headache, rhinitis, diarrhea, fever, asthenia, insomnia, tremor, abdominal pain, cough, accidental injury, constipation, dysmenorrhea, incoordination, anxiety, seizures, irritability, anorexia, xerostomia, and photosensitivity. Serious reactions include: Rash, severe; St Rory syndrome; toxic epidermal necrosis; injury edema, hypersensitivity reactions. Including fatal, multiple organ failure to safe fatal, rash with eosinophilia systemic symptoms, DIC, neutropenia, leukopenia, thrombocytopenia, pancytopenia, aplastic anemia, hemolytic anemia, i pancreatitis, hepatic failure, rhabdomyolysis, worsening of suicidal ideation, worsening of depression, cleft lip/palate [first trimester use] DO not Change Cosmetic, perfumes or soap for next 4 weeks. The patient was advice to take lamotrigine as prescribed the patient was instructed not to deviate from the prescription dosages. Stop lamotrigine is the first sign of rash. Patient was insisted to inform office if any of the serious side effect develops. discuss therapy - will consider [facility] or [facility] for therapy Will decrease WELLBUTRIN XL 150 mg in am - may plan to top in near future [facility] 30 days today [facility] for 90 days sweating on Wellbutrin 300 mg dose Anxiety- Lexapro 20 mg daily Insomnia- Melatonin 1-3 mg at bedtime OTC Tobacco use- smoking cessation- stopped smoking 07/11/24 https://www.neva.or g/Tyhjx-Vamacx-Nbsk ess/Zeuiva-Cnrubn-C onditions https://www.FitStar/cannabis-u ir-dajcfqwb-mjkqexo na-adhd/ https://psychGeospiza/depression/th r-dqlxcvuif-syltmui m-hy-quqgudekga#alysa atments http_s://www.[facility].n ih.gov/health/topic s/zvoffy-qgawnd-vtr ications http_s://www.neva.o rg/Oxzwx-Odxmqi-Xql ness/Treatments/Men pmp-Zxljyx-Utgnbhni ons Recommend decrease/stop cannabis use as it may be negatively impacting mood, motivation, anxiety, sleep, focus; can also contribute to development of psychosis Patient educated on all medications including potential benefits, side effects, risks. Educated on proper dosing schedule and importance of compliance educated on all medications, benefits, side effects and risk, and educated on depression, anxiety, and ADHD, mood d/o and educated on compliance of medications, metabolic and movement d/o education appointment is, continue therapy discussion with patient about course of treatment and patient instructions. education on serotonin syndrome SSRI/SNRI side effects discussed including but not limited to, gastric upset, nausea, vomiting, diarrhea and/or constipation, weight changes, sexual side effects including loss of libido, increased suicidal thoughts/behaviors in children and young adults, and serotonin syndrome. Second generation antipsychotics (SGAs) have metabolic syndrome issues with weight gain, increase in prolactin, increased waist circumference, increased lipids, and increased glucose. Thus routine monitoring of weight, metabolic labs, etc. is indicated. A general rank ordering of antipsychotics that have the greatest to the least risk of metabolic effects is olanzapine, quetiapine, risperidone, ziprasidone, and aripiprazole. However, weight gain can occur with all of these drugs and considerable variability exists among patients receiving the same drug regarding the risk of metabolic effects. Anti-psychotic agents not only increase the risk of metabolic disorder, they also increase the risk of CVA, akathisia, and movement disorders including EPS or tardive dyskinesia (more common with first generation antipsychotics) and more. 05/30/2024 Primary insomnia (ICD-10 - F51.01) Insomnia: Care Instructions material was published, Learning About Sleeping Well material was published Depression- Lexapro 20 mg daily NO REFILL NEEDED TODAY educated on all rx discuss and educated on Wellbutrin for depression and also help stop smoking discuss therapy - will consider Pearl or Aminta for therapy Will add WELLBUTRIN XL 150 mg in am - [facility] 30 days today [facility] for 90 days Anxiety- Lexapro 20 mg daily Insomnia- Melatonin 1-3 mg at bedtime OTC Tobacco use- smoking cessation plan to stop Labor Day decrease use https://www.neva.or g/Zpaje-Zvfakb-Jatg ess/Tviztu-Kjbcrc-H onditions https://www.FitStar/cannabis-u dc-fachzyxy-xmrgbcp na-adhd/ https://psychGeospiza/depression/th t-lmmwnrtur-ahblicz i-hs-punvyhgfnf#alysa atments http_s://www.nimh.n ih.gov/health/topic s/hkcdhr-lbspdw-ufl ications http_s://www.neva.o rg/Guwdm-Klwzoa-Iva ness/Treatments/Men dtp-Adisvj-Xcbucjxu ons Recommend decrease/stop cannabis use as it may be negatively impacting mood, motivation, anxiety, sleep, focus; can also contribute to development of psychosis Patient educated on all medications including potential benefits, side effects, risks. Educated on proper dosing schedule and importance of compliance educated on all medications, benefits, side effects and risk, and educated on depression, anxiety, and ADHD, mood d/o and educated on compliance of medications, metabolic and movement d/o education appointment is, continue therapy discussion with patient about course of treatment and patient instructions. education on serotonin syndrome SSRI/SNRI side effects discussed including but not limited to, gastric upset, nausea, vomiting, diarrhea and/or constipation, weight changes, sexual side effects including loss of libido, increased suicidal thoughts/behaviors in children and young adults, and serotonin syndrome. Second generation antipsychotics (SGAs) have metabolic syndrome issues with weight gain, increase in prolactin, increased waist circumference, increased lipids, and increased glucose. Thus routine monitoring of weight, metabolic labs, etc. is indicated. A general rank ordering of antipsychotics that have the greatest to the least risk of metabolic effects is olanzapine, quetiapine, risperidone, ziprasidone, and aripiprazole. However, weight gain can occur with all of these drugs and considerable variability exists among patients receiving the same drug regarding the risk of metabolic effects. Anti-psychotic agents not only increase the risk of metabolic disorder, they also increase the risk of CVA, akathisia, and movement disorders including EPS or tardive dyskinesia (more common with first generation antipsychotics) and more. 05/30/2024 Tobacco use (ICD-10 - Z72.0) Quitting Tobacco: Care Instructions material was published, Learning About Benefits of Quitting Smoking material was published, Stopping Smokeless Tobacco Use: Care Instructions material was published, Deciding About Using Medicines To Quit Smoking material was published Depression- Lexapro 20 mg daily NO REFILL NEEDED TODAY educated on all rx discuss and educated on Wellbutrin for depression and also help stop smoking discuss therapy - will consider [facility] or Aminta for therapy Will add WELLBUTRIN XL 150 mg in am - [facility] 30 days today [facility] for 90 days Anxiety- Lexapro 20 mg daily Insomnia- Melatonin 1-3 mg at bedtime OTC Tobacco use- smoking cessation plan to stop Labor Day decrease use https://www.neva.or g/Yctli-Ruxkav-Yhfq ess/Fcvazs-Wsdsvc-K onditions https://www.FitStar/cannabis-u lq-mdahjeqj-vutgnpa na-adhd/ https://psychGeospiza/depression/th e-gtqccsnsq-qdemdaj f-ro-dptjkyxrgh#alysa atments http_s://www.nimh.n ih.gov/health/topic s/kldwgn-zzzvge-hon ications http_s://www.neva.o rg/Ozpfy-Nvnffj-Myf ness/Treatments/Men vhp-Qpmarh-Cbmqlhqt ons Recommend decrease/stop cannabis use as it may be negatively impacting mood, motivation, anxiety, sleep, focus; can also contribute to development of psychosis Patient educated on all medications including potential benefits, side effects, risks. Educated on proper dosing schedule and importance of compliance educated on all medications, benefits, side effects and risk, and educated on depression, anxiety, and ADHD, mood d/o and educated on compliance of medications, metabolic and movement d/o education appointment is, continue therapy discussion with patient about course of treatment and patient instructions. education on serotonin syndrome SSRI/SNRI side effects discussed including but not limited to, gastric upset, nausea, vomiting, diarrhea and/or constipation, weight changes, sexual side effects including loss of libido, increased suicidal thoughts/behaviors in children and young adults, and serotonin syndrome. Second generation antipsychotics (SGAs) have metabolic syndrome issues with weight gain, increase in prolactin, increased waist circumference, increased lipids, and increased glucose. Thus routine monitoring of weight, metabolic labs, etc. is indicated. A general rank ordering of antipsychotics that have the greatest to the least risk of metabolic effects is olanzapine, quetiapine, risperidone, ziprasidone, and aripiprazole. However, weight gain can occur with all of these drugs and considerable variability exists among patients receiving the same drug regarding the risk of metabolic effects. Anti-psychotic agents not only increase the risk of metabolic disorder, they also increase the risk of CVA, akathisia, and movement disorders including EPS or tardive dyskinesia (more common with first generation antipsychotics) and more. 08/25/2024 Primary insomnia (ICD-10 - F51.01) Insomnia: Care Instructions material was published, Learning About Sleeping Well material was published Depression- Lexapro 20 mg daily educated on all rx refer to therapy UMAIR DISCUSS and educated on Lamotrigine - Lamotrigine 50 mg daily discuss and educated on Wellbutrin for depression and also help stop smoking- Lamotrigine lamotrigine has a serious rashes requiring hospitalization and discontinue treatment including Jose Rory syndrome rare case of toxic epidermal necrolysis and cache related deaths. Incidence with adjunct of epilepsy treatment 0.8% in 2 to 16 years old and 0.3% in adults, bipolar and other mood disorders incidence 0.8% this initial monotherapy and 0.13% as adjunctive treatment. Other risk factor may include concomitant use of valproate acid derivative or exceeding initial lamotrigine does or does as clinician recommendation; most life-threatening rash of occurring first 2 to 8 week of treatment with isolated cases after prolonged treatment; though benign may occur, discontinue treatment at first sign of rash unless clearly not a drug related; TC treatment may not prevent trash from becoming life-threatening or permanently disabling or disfiguring. Comment reaction include, nausea/vomiting, dizziness/vertigo, visual disturbances, somnolence, ataxia, pruritus/rash, pharyngitis, headache, rhinitis, diarrhea, fever, asthenia, insomnia, tremor, abdominal pain, cough, accidental injury, constipation, dysmenorrhea, incoordination, anxiety, seizures, irritability, anorexia, xerostomia, and photosensitivity. Serious reactions include: Rash, severe; St Rory syndrome; toxic epidermal necrosis; injury edema, hypersensitivity reactions. Including fatal, multiple organ failure to safe fatal, rash with eosinophilia systemic symptoms, DIC, neutropenia, leukopenia, thrombocytopenia, pancytopenia, aplastic anemia, hemolytic anemia, i pancreatitis, hepatic failure, rhabdomyolysis, worsening of suicidal ideation, worsening of depression, cleft lip/palate [first trimester use] DO not Change Cosmetic, perfumes or soap for next 4 weeks. The patient was advice to take lamotrigine as prescribed the patient was instructed not to deviate from the prescription dosages. Stop lamotrigine is the first sign of rash. Patient was insisted to inform office if any of the serious side effect develops. discuss therapy - Refer [facility] for therapy WELLBUTRIN XL 150 mg in am - may plan to top in near future [facility] 30 days today [facility] for 90 days sweating on Wellbutrin 300 mg dose Anxiety- Lexapro 20 mg daily Insomnia- Melatonin 1-3 mg at bedtime OTC Tobacco use- smoking cessation- stopped smoking 07/11/24 https://www.neva.or g/Ktkkn-Ksodci-Itoa ess/Ceaxkv-Fdrasu-Z onditions https://www.Axeda.SwiftPayMD(TM) by [employer]/cannabis-u ho-qwvwupeu-cfxipef na-adhd/ https://psychcentra Teaboxcom/depression/th o-axnlqrzhg-jvdlxbn b-mm-ztzmavhjlh#alysa atments http_s://www.nimh.n ih.gov/health/topic s/gcwacq-clnqjo-cce ications http_s://www.neva.o rg/Qlzgv-Cgiygh-Ygh ness/Treatments/Men kba-Ckpqfh-Conjpavq ons Recommend decrease/stop cannabis use as it may be negatively impacting mood, motivation, anxiety, sleep, focus; can also contribute to development of psychosis Patient educated on all medications including potential benefits, side effects, risks. Educated on proper dosing schedule and importance of compliance educated on all medications, benefits, side effects and risk, and educated on depression, anxiety, and ADHD, mood d/o and educated on compliance of medications, metabolic and movement d/o education appointment is, continue therapy discussion with patient about course of treatment and patient instructions. education on serotonin syndrome SSRI/SNRI side effects discussed including but not limited to, gastric upset, nausea, vomiting, diarrhea and/or constipation, weight changes, sexual side effects including loss of libido, increased suicidal thoughts/behaviors in children and young adults, and serotonin syndrome. Second generation antipsychotics (SGAs) have metabolic syndrome issues with weight gain, increase in prolactin, increased waist circumference, increased lipids, and increased glucose. Thus routine monitoring of weight, metabolic labs, etc. is indicated. A general rank ordering of antipsychotics that have the greatest to the least risk of metabolic effects is olanzapine, quetiapine, risperidone, ziprasidone, and aripiprazole. However, weight gain can occur with all of these drugs and considerable variability exists among patients receiving the same drug regarding the risk of metabolic effects. Anti-psychotic agents not only increase the risk of metabolic disorder, they also increase the risk of CVA, akathisia, and movement disorders including EPS or tardive dyskinesia (more common with first generation antipsychotics) and more. 07/28/2024 Primary insomnia (ICD-10 - F51.01) Insomnia: Care Instructions material was published, Learning About Sleeping Well material was published Depression- Lexapro 20 mg daily NO REFILL NEEDED TODAY educated on all rx DISCUSS and educated on Lamotrigine - add Lamotrigine 25 mg daily foe 2 weeks then increase Lamotrigine to 50 mg daily discuss and educated on Wellbutrin for depression and also help stop smoking- patient stopped smoking with COVID 07/11/24 Lamotrigine lamotrigine has a serious rashes requiring hospitalization and discontinue treatment including Jose Rory syndrome rare case of toxic epidermal necrolysis and cache related deaths. Incidence with adjunct of epilepsy treatment 0.8% in 2 to 16 years old and 0.3% in adults, bipolar and other mood disorders incidence 0.8% this initial monotherapy and 0.13% as adjunctive treatment. Other risk factor may include concomitant use of valproate acid derivative or exceeding initial lamotrigine does or does as clinician recommendation; most life-threatening rash of occurring first 2 to 8 week of treatment with isolated cases after prolonged treatment; though benign may occur, discontinue treatment at first sign of rash unless clearly not a drug related; TC treatment may not prevent trash from becoming life-threatening or permanently disabling or disfiguring. Comment reaction include, nausea/vomiting, dizziness/vertigo, visual disturbances, somnolence, ataxia, pruritus/rash, pharyngitis, headache, rhinitis, diarrhea, fever, asthenia, insomnia, tremor, abdominal pain, cough, accidental injury, constipation, dysmenorrhea, incoordination, anxiety, seizures, irritability, anorexia, xerostomia, and photosensitivity. Serious reactions include: Rash, severe; St Rory syndrome; toxic epidermal necrosis; injury edema, hypersensitivity reactions. Including fatal, multiple organ failure to safe fatal, rash with eosinophilia systemic symptoms, DIC, neutropenia, leukopenia, thrombocytopenia, pancytopenia, aplastic anemia, hemolytic anemia, i pancreatitis, hepatic failure, rhabdomyolysis, worsening of suicidal ideation, worsening of depression, cleft lip/palate [first trimester use] DO not Change Cosmetic, perfumes or soap for next 4 weeks. The patient was advice to take lamotrigine as prescribed the patient was instructed not to deviate from the prescription dosages. Stop lamotrigine is the first sign of rash. Patient was insisted to inform office if any of the serious side effect develops. discuss therapy - will consider Pearl or Aminta for therapy Will decrease WELLBUTRIN XL 150 mg in am - may plan to top in near future [facility] 30 days today [facility] for 90 days sweating on Wellbutrin 300 mg dose Anxiety- Lexapro 20 mg daily Insomnia- Melatonin 1-3 mg at bedtime OTC Tobacco use- smoking cessation- stopped smoking 07/11/24 https://www.neva.or g/Ocwzh-Ojmnuy-Ofzd ess/Yjuxlj-Zuicvm-P onditions https://www.Axeda.SwiftPayMD(TM) by [employer]/cannabis-u kz-inybgrlx-ouhskfa na-adhd/ https://psychcentra interspireSubmit.com/depression/th h-hrybksmuo-iiqchwk j-qv-oxrcdodbbt#alysa atments http_s://www.nimh.n ih.gov/health/topic s/hzgxte-wgoiua-fix ications http_s://www.neva.o rg/Kdnbm-Ogzmmd-Uet ness/Treatments/Men huo-Fqjvnh-Xkbjjewu ons Recommend decrease/stop cannabis use as it may be negatively impacting mood, motivation, anxiety, sleep, focus; can also contribute to development of psychosis Patient educated on all medications including potential benefits, side effects, risks. Educated on proper dosing schedule and importance of compliance educated on all medications, benefits, side effects and risk, and educated on depression, anxiety, and ADHD, mood d/o and educated on compliance of medications, metabolic and movement d/o education appointment is, continue therapy discussion with patient about course of treatment and patient instructions. education on serotonin syndrome SSRI/SNRI side effects discussed including but not limited to, gastric upset, nausea, vomiting, diarrhea and/or constipation, weight changes, sexual side effects including loss of libido, increased suicidal thoughts/behaviors in children and young adults, and serotonin syndrome. Second generation antipsychotics (SGAs) have metabolic syndrome issues with weight gain, increase in prolactin, increased waist circumference, increased lipids, and increased glucose. Thus routine monitoring of weight, metabolic labs, etc. is indicated. A general rank ordering of antipsychotics that have the greatest to the least risk of metabolic effects is olanzapine, quetiapine, risperidone, ziprasidone, and aripiprazole. However, weight gain can occur with all of these drugs and considerable variability exists among patients receiving the same drug regarding the risk of metabolic effects. Anti-psychotic agents not only increase the risk of metabolic disorder, they also increase the risk of CVA, akathisia, and movement disorders including EPS or tardive dyskinesia (more common with first generation antipsychotics) and more. 06/30/2024 Primary insomnia (ICD-10 - F51.01) Insomnia: Care Instructions material was published, Learning About Sleeping Well material was published Depression- Lexapro 20 mg daily NO REFILL NEEDED TODAY educated on all rx discuss and educated on Wellbutrin for depression and also help stop smoking discuss therapy - will consider [facility] or Aminta for therapy Will increase WELLBUTRIN XL 300 mg in am - [facility] 30 days today [facility] for 90 days Anxiety- Lexapro 20 mg daily Insomnia- Melatonin 1-3 mg at bedtime OTC Tobacco use- smoking cessation plan to stop Labor Day decrease use https://www.neva.or g/Ipdbp-Taozuz-Cmby ess/Niiove-Zycmqz-H onditions https://www.additud emag.com/cannabis-u ja-quhfsnzl-uldzppm na-adhd/ https://psychcentra l.com/depression/th m-ivjszuqnr-thwilkn f-op-mrxvpgkkma#alysa atments http_s://www.[facility].n ih.gov/health/topic s/ucofex-nsmprh-hjr ications http_s://www.enva.o rg/Nveov-Mxnser-Cte ness/Treatments/Men awy-Agwovy-Axofohck ons Recommend decrease/stop cannabis use as it may be negatively impacting mood, motivation, anxiety, sleep, focus; can also contribute to development of psychosis Patient educated on all medications including potential benefits, side effects, risks. Educated on proper dosing schedule and importance of compliance educated on all medications, benefits, side effects and risk, and educated on depression, anxiety, and ADHD, mood d/o and educated on compliance of medications, metabolic and movement d/o education appointment is, continue therapy discussion with patient about course of treatment and patient instructions. education on serotonin syndrome SSRI/SNRI side effects discussed including but not limited to, gastric upset, nausea, vomiting, diarrhea and/or constipation, weight changes, sexual side effects including loss of libido, increased suicidal thoughts/behaviors in children and young adults, and serotonin syndrome. Second generation antipsychotics (SGAs) have metabolic syndrome issues with weight gain, increase in prolactin, increased waist circumference, increased lipids, and increased glucose. Thus routine monitoring of weight, metabolic labs, etc. is indicated. A general rank ordering of antipsychotics that have the greatest to the least risk of metabolic effects is olanzapine, quetiapine, risperidone, ziprasidone, and aripiprazole. However, weight gain can occur with all of these drugs and considerable variability exists among patients receiving the same drug regarding the risk of metabolic effects. Anti-psychotic agents not only increase the risk of metabolic disorder, they also increase the risk of CVA, akathisia, and movement disorders including EPS or tardive dyskinesia (more common with first generation antipsychotics) and more. 09/27/2024 Primary insomnia (ICD-10 - F51.01) Insomnia: Care Instructions material was published, Learning About Sleeping Well material was published Depression- Lexapro 20 mg daily- no refill needed today educated on all rx patient would like to wean off rx and see how she does refer to therapy UMAIR DISCUSS and educated on Lamotrigine - Lamotrigine 50 mg daily discuss and educated on Wellbutrin for depression and also help stop smoking- Lamotrigine lamotrigine has a serious rashes requiring hospitalization and discontinue treatment including Jose Rory syndrome rare case of toxic epidermal necrolysis and cache related deaths. Incidence with adjunct of epilepsy treatment 0.8% in 2 to 16 years old and 0.3% in adults, bipolar and other mood disorders incidence 0.8% this initial monotherapy and 0.13% as adjunctive treatment. Other risk factor may include concomitant use of valproate acid derivative or exceeding initial lamotrigine does or does as clinician recommendation; most life-threatening rash of occurring first 2 to 8 week of treatment with isolated cases after prolonged treatment; though benign may occur, discontinue treatment at first sign of rash unless clearly not a drug related; TC treatment may not prevent trash from becoming life-threatening or permanently disabling or disfiguring. Comment reaction include, nausea/vomiting, dizziness/vertigo, visual disturbances, somnolence, ataxia, pruritus/rash, pharyngitis, headache, rhinitis, diarrhea, fever, asthenia, insomnia, tremor, abdominal pain, cough, accidental injury, constipation, dysmenorrhea, incoordination, anxiety, seizures, irritability, anorexia, xerostomia, and photosensitivity. Serious reactions include: Rash, severe; St Rory syndrome; toxic epidermal necrosis; injury edema, hypersensitivity reactions. Including fatal, multiple organ failure to safe fatal, rash with eosinophilia systemic symptoms, DIC, neutropenia, leukopenia, thrombocytopenia, pancytopenia, aplastic anemia, hemolytic anemia, i pancreatitis, hepatic failure, rhabdomyolysis, worsening of suicidal ideation, worsening of depression, cleft lip/palate [first trimester use] DO not Change Cosmetic, perfumes or soap for next 4 weeks. The patient was advice to take lamotrigine as prescribed the patient was instructed not to deviate from the prescription dosages. Stop lamotrigine is the first sign of rash. Patient was insisted to inform office if any of the serious side effect develops. plan to see PCP- labsand about sweating and weight gain scheduled 10/25 discuss therapy - Refer [facility] for therapy D/C WELLBUTRIN XL 150 mg in am - Patient wants to wean off all rx [facility] 30 days today [facility] for 90 days sweating on Wellbutrin 300 mg dose Anxiety- Lexapro 20 mg daily Insomnia- Melatonin 1-3 mg at bedtime OTC Tobacco use- smoking cessation- stopped smoking educated smokes 4 cig a day https://www.neva.or g/Nmeeb-Chooxl-Rvfw ess/Qphirr-Juryzv-C onditions https://www.FitStar/cannabis-u uy-xrfpksry-beeuuhn na-adhd/ https://[employer]/depression/th r-uqqlnhjsi-jonhmks s-cs-ytvwpdmpqk#alysa atments http_s://www.nimh.n ih.gov/health/topic s/wtenpl-nfyrxn-kpc ications http_s://www.neva.o rg/Hadyh-Mdthlm-Bif ness/Treatments/Men vlu-Vofboy-Tuhpcpfd ons Recommend decrease/stop cannabis use as it may be negatively impacting mood, motivation, anxiety, sleep, focus; can also contribute to development of psychosis Patient educated on all medications including potential benefits, side effects, risks. Educated on proper dosing schedule and importance of compliance educated on all medications, benefits, side effects and risk, and educated on depression, anxiety, and ADHD, mood d/o and educated on compliance of medications, metabolic and movement d/o education appointment is, continue therapy discussion with patient about course of treatment and patient instructions. education on serotonin syndrome SSRI/SNRI side effects discussed including but not limited to, gastric upset, nausea, vomiting, diarrhea and/or constipation, weight changes, sexual side effects including loss of libido, increased suicidal thoughts/behaviors in children and young adults, and serotonin syndrome. Second generation antipsychotics (SGAs) have metabolic syndrome issues with weight gain, increase in prolactin, increased waist circumference, increased lipids, and increased glucose. Thus routine monitoring of weight, metabolic labs, etc. is indicated. A general rank ordering of antipsychotics that have the greatest to the least risk of metabolic effects is olanzapine, quetiapine, risperidone, ziprasidone, and aripiprazole. However, weight gain can occur with all of these drugs and considerable variability exists among patients receiving the same drug regarding the risk of metabolic effects. Anti-psychotic agents not only increase the risk of metabolic disorder, they also increase the risk of CVA, akathisia, and movement disorders including EPS or tardive dyskinesia (more common with first generation antipsychotics) and more. 09/27/2024 Tobacco use (ICD-10 - Z72.0) Quitting Tobacco: Care Instructions material was published, Learning About Benefits of Quitting Smoking material was published, Stopping Smokeless Tobacco Use: Care Instructions material was published, Deciding About Using Medicines To Quit Smoking material was published, Stopping Smokeless Tobacco Use: Care Instructions material was published, Deciding About Using Medicines To Quit Smoking material was published, Quitting Tobacco: Care Instructions material was published Depression- Lexapro 20 mg daily- no refill needed today educated on all rx patient would like to wean off rx and see how she does refer to therapy UMAIR DISCUSS and educated on Lamotrigine - Lamotrigine 50 mg daily discuss and educated on Wellbutrin for depression and also help stop smoking- Lamotrigine lamotrigine has a serious rashes requiring hospitalization and discontinue treatment including Jose Rory syndrome rare case of toxic epidermal necrolysis and cache related deaths. Incidence with adjunct of epilepsy treatment 0.8% in 2 to 16 years old and 0.3% in adults, bipolar and other mood disorders incidence 0.8% this initial monotherapy and 0.13% as adjunctive treatment. Other risk factor may include concomitant use of valproate acid derivative or exceeding initial lamotrigine does or does as clinician recommendation; most life-threatening rash of occurring first 2 to 8 week of treatment with isolated cases after prolonged treatment; though benign may occur, discontinue treatment at first sign of rash unless clearly not a drug related; TC treatment may not prevent trash from becoming life-threatening or permanently disabling or disfiguring. Comment reaction include, nausea/vomiting, dizziness/vertigo, visual disturbances, somnolence, ataxia, pruritus/rash, pharyngitis, headache, rhinitis, diarrhea, fever, asthenia, insomnia, tremor, abdominal pain, cough, accidental injury, constipation, dysmenorrhea, incoordination, anxiety, seizures, irritability, anorexia, xerostomia, and photosensitivity. Serious reactions include: Rash, severe; St Rory syndrome; toxic epidermal necrosis; injury edema, hypersensitivity reactions. Including fatal, multiple organ failure to safe fatal, rash with eosinophilia systemic symptoms, DIC, neutropenia, leukopenia, thrombocytopenia, pancytopenia, aplastic anemia, hemolytic anemia, i pancreatitis, hepatic failure, rhabdomyolysis, worsening of suicidal ideation, worsening of depression, cleft lip/palate [first trimester use] DO not Change Cosmetic, perfumes or soap for next 4 weeks. The patient was advice to take lamotrigine as prescribed the patient was instructed not to deviate from the prescription dosages. Stop lamotrigine is the first sign of rash. Patient was insisted to inform office if any of the serious side effect develops. plan to see PCP- labsand about sweating and weight gain scheduled 10/25 discuss therapy - Refer [facility] for therapy D/C WELLBUTRIN XL 150 mg in am - Patient wants to wean off all rx [facility] 30 days today [facility] for 90 days sweating on Wellbutrin 300 mg dose Anxiety- Lexapro 20 mg daily Insomnia- Melatonin 1-3 mg at bedtime OTC Tobacco use- smoking cessation- stopped smoking educated smokes 4 cig a day https://www.neva.or g/Ueunp-Tqyfve-Dnas ess/Figxea-Smvgfr-K onditions https://www.FitStar/cannabis-u pa-dohxcdtq-bcrgvyx na-adhd/ https://[employer]/depression/th t-qoetkybdj-fjaunwj b-vv-kerhswotit#alysa atments http_s://www.nimh.n ih.gov/health/topic s/aknsam-qsmkmj-qbs ications http_s://www.neva.o rg/Wsbsq-Glwxip-Bkt ness/Treatments/Men esp-Xpsmce-Ecxxywhs ons Recommend decrease/stop cannabis use as it may be negatively impacting mood, motivation, anxiety, sleep, focus; can also contribute to development of psychosis Patient educated on all medications including potential benefits, side effects, risks. Educated on proper dosing schedule and importance of compliance educated on all medications, benefits, side effects and risk, and educated on depression, anxiety, and ADHD, mood d/o and educated on compliance of medications, metabolic and movement d/o education appointment is, continue therapy discussion with patient about course of treatment and patient instructions. education on serotonin syndrome SSRI/SNRI side effects discussed including but not limited to, gastric upset, nausea, vomiting, diarrhea and/or constipation, weight changes, sexual side effects including loss of libido, increased suicidal thoughts/behaviors in children and young adults, and serotonin syndrome. Second generation antipsychotics (SGAs) have metabolic syndrome issues with weight gain, increase in prolactin, increased waist circumference, increased lipids, and increased glucose. Thus routine monitoring of weight, metabolic labs, etc. is indicated. A general rank ordering of antipsychotics that have the greatest to the least risk of metabolic effects is olanzapine, quetiapine, risperidone, ziprasidone, and aripiprazole. However, weight gain can occur with all of these drugs and considerable variability exists among patients receiving the same drug regarding the risk of metabolic effects. Anti-psychotic agents not only increase the risk of metabolic disorder, they also increase the risk of CVA, akathisia, and movement disorders including EPS or tardive dyskinesia (more common with first generation antipsychotics) and more. 06/30/2024 Tobacco use (ICD-10 - Z72.0) Quitting Tobacco: Care Instructions material was published, Learning About Benefits of Quitting Smoking material was published, Stopping Smokeless Tobacco Use: Care Instructions material was published, Deciding About Using Medicines To Quit Smoking material was published, Stopping Smokeless Tobacco Use: Care Instructions material was published, Deciding About Using Medicines To Quit Smoking material was published, Quitting Tobacco: Care Instructions material was published Depression- Lexapro 20 mg daily NO REFILL NEEDED TODAY educated on all rx discuss and educated on Wellbutrin for depression and also help stop smoking discuss therapy - will consider [facility] or Aminta for therapy Will increase WELLBUTRIN XL 300 mg in am - [facility] days today [facility] for 90 days Anxiety- Lexapro 20 mg daily Insomnia- Melatonin 1-3 mg at bedtime OTC Tobacco use- smoking cessation plan to stop Labor Day decrease use https://www.neva.or g/Dbbkp-Kwqbqk-Bqkm ess/Ifrndh-Aggzqk-S onditions https://www.Axeda.SwiftPayMD(TM) by [employer]/cannabis-u nl-nzctadpy-peydgxs na-adhd/ https://psychcentra l.com/depression/th y-vhlskosnp-atsjaxo c-jd-liyhizlurl#alysa atments http_s://www.nimh.n ih.gov/health/topic s/sraapg-rzehro-fmk ications http_s://www.neva.o rg/Atlin-Zgzdia-Qvx ness/Treatments/Men bxn-Lemiab-Imowirux ons Recommend decrease/stop cannabis use as it may be negatively impacting mood, motivation, anxiety, sleep, focus; can also contribute to development of psychosis Patient educated on all medications including potential benefits, side effects, risks. Educated on proper dosing schedule and importance of compliance educated on all medications, benefits, side effects and risk, and educated on depression, anxiety, and ADHD, mood d/o and educated on compliance of medications, metabolic and movement d/o education appointment is, continue therapy discussion with patient about course of treatment and patient instructions. education on serotonin syndrome SSRI/SNRI side effects discussed including but not limited to, gastric upset, nausea, vomiting, diarrhea and/or constipation, weight changes, sexual side effects including loss of libido, increased suicidal thoughts/behaviors in children and young adults, and serotonin syndrome. Second generation antipsychotics (SGAs) have metabolic syndrome issues with weight gain, increase in prolactin, increased waist circumference, increased lipids, and increased glucose. Thus routine monitoring of weight, metabolic labs, etc. is indicated. A general rank ordering of antipsychotics that have the greatest to the least risk of metabolic effects is olanzapine, quetiapine, risperidone, ziprasidone, and aripiprazole. However, weight gain can occur with all of these drugs and considerable variability exists among patients receiving the same drug regarding the risk of metabolic effects. Anti-psychotic agents not only increase the risk of metabolic disorder, they also increase the risk of CVA, akathisia, and movement disorders including EPS or tardive dyskinesia (more common with first generation antipsychotics) and more. 07/28/2024 Tobacco use (ICD-10 - Z72.0) Quitting Tobacco: Care Instructions material was published, Learning About Benefits of Quitting Smoking material was published, Stopping Smokeless Tobacco Use: Care Instructions material was published, Deciding About Using Medicines To Quit Smoking material was published, Stopping Smokeless Tobacco Use: Care Instructions material was published, Deciding About Using Medicines To Quit Smoking material was published, Quitting Tobacco: Care Instructions material was published Depression- Lexapro 20 mg daily NO REFILL NEEDED TODAY educated on all rx DISCUSS and educated on Lamotrigine - add Lamotrigine 25 mg daily foe 2 weeks then increase Lamotrigine to 50 mg daily discuss and educated on Wellbutrin for depression and also help stop smoking- patient stopped smoking with COVID 07/11/24 Lamotrigine lamotrigine has a serious rashes requiring hospitalization and discontinue treatment including Jose Rory syndrome rare case of toxic epidermal necrolysis and cache related deaths. Incidence with adjunct of epilepsy treatment 0.8% in 2 to 16 years old and 0.3% in adults, bipolar and other mood disorders incidence 0.8% this initial monotherapy and 0.13% as adjunctive treatment. Other risk factor may include concomitant use of valproate acid derivative or exceeding initial lamotrigine does or does as clinician recommendation; most life-threatening rash of occurring first 2 to 8 week of treatment with isolated cases after prolonged treatment; though benign may occur, discontinue treatment at first sign of rash unless clearly not a drug related; TC treatment may not prevent trash from becoming life-threatening or permanently disabling or disfiguring. Comment reaction include, nausea/vomiting, dizziness/vertigo, visual disturbances, somnolence, ataxia, pruritus/rash, pharyngitis, headache, rhinitis, diarrhea, fever, asthenia, insomnia, tremor, abdominal pain, cough, accidental injury, constipation, dysmenorrhea, incoordination, anxiety, seizures, irritability, anorexia, xerostomia, and photosensitivity. Serious reactions include: Rash, severe; St Rory syndrome; toxic epidermal necrosis; injury edema, hypersensitivity reactions. Including fatal, multiple organ failure to safe fatal, rash with eosinophilia systemic symptoms, DIC, neutropenia, leukopenia, thrombocytopenia, pancytopenia, aplastic anemia, hemolytic anemia, i pancreatitis, hepatic failure, rhabdomyolysis, worsening of suicidal ideation, worsening of depression, cleft lip/palate [first trimester use] DO not Change Cosmetic, perfumes or soap for next 4 weeks. The patient was advice to take lamotrigine as prescribed the patient was instructed not to deviate from the prescription dosages. Stop lamotrigine is the first sign of rash. Patient was insisted to inform office if any of the serious side effect develops. discuss therapy - will consider [facility] or Aminta for therapy Will decrease WELLBUTRIN XL 150 mg in am - may plan to top in near future [facility] days today [facility] for 90 days sweating on Wellbutrin 300 mg dose Anxiety- Lexapro 20 mg daily Insomnia- Melatonin 1-3 mg at bedtime OTC Tobacco use- smoking cessation- stopped smoking 07/11/24 https://www.neva.or g/Sxqpt-Tmpwqo-Fblu ess/Zncwpa-Dnhpza-R onditions https://www.Axeda.Swift[employer]MD(TM) by [employer]/cannabis-u cj-jsclzono-jfluppu na-adhd/ https://psychcentra l.com/depression/th t-lmlabawkz-ulnidmg y-wz-watpthaimn#alysa atments http_s://www.[facility].n .gov/health/topic s/cmocbt-kefzot-lbq ications http_s://www.neva.o rg/Bywym-Fgynlc-Xgp ness/Treatments/Men tet-Vohryd-Fodzuoax ons Recommend decrease/stop cannabis use as it may be negatively impacting mood, motivation, anxiety, sleep, focus; can also contribute to development of psychosis Patient educated on all medications including potential benefits, side effects, risks. Educated on proper dosing schedule and importance of compliance educated on all medications, benefits, side effects and risk, and educated on depression, anxiety, and ADHD, mood d/o and educated on compliance of medications, metabolic and movement d/o education appointment is, continue therapy discussion with patient about course of treatment and patient instructions. education on serotonin syndrome SSRI/SNRI side effects discussed including but not limited to, gastric upset, nausea, vomiting, diarrhea and/or constipation, weight changes, sexual side effects including loss of libido, increased suicidal thoughts/behaviors in children and young adults, and serotonin syndrome. Second generation antipsychotics (SGAs) have metabolic syndrome issues with weight gain, increase in prolactin, increased waist circumference, increased lipids, and increased glucose. Thus routine monitoring of weight, metabolic labs, etc. is indicated. A general rank ordering of antipsychotics that have the greatest to the least risk of metabolic effects is olanzapine, quetiapine, risperidone, ziprasidone, and aripiprazole. However, weight gain can occur with all of these drugs and considerable variability exists among patients receiving the same drug regarding the risk of metabolic effects. Anti-psychotic agents not only increase the risk of metabolic disorder, they also increase the risk of CVA, akathisia, and movement disorders including EPS or tardive dyskinesia (more common with first generation antipsychotics) and more. 08/25/2024 Tobacco use (ICD-10 - Z72.0) Quitting Tobacco: Care Instructions material was published, Learning About Benefits of Quitting Smoking material was published, Stopping Smokeless Tobacco Use: Care Instructions material was published, Deciding About Using Medicines To Quit Smoking material was published, Stopping Smokeless Tobacco Use: Care Instructions material was published, Deciding About Using Medicines To Quit Smoking material was published, Quitting Tobacco: Care Instructions material was published Depression- Lexapro 20 mg daily educated on all rx refer to therapy [facility] DISCUSS and educated on Lamotrigine - Lamotrigine 50 mg daily discuss and educated on Wellbutrin for depression and also help stop smoking- Lamotrigine lamotrigine has a serious rashes requiring hospitalization and discontinue treatment including Jose Rory syndrome rare case of toxic epidermal necrolysis and cache related deaths. Incidence with adjunct of epilepsy treatment 0.8% in 2 to 16 years old and 0.3% in adults, bipolar and other mood disorders incidence 0.8% this initial monotherapy and 0.13% as adjunctive treatment. Other risk factor may include concomitant use of valproate acid derivative or exceeding initial lamotrigine does or does as clinician recommendation; most life-threatening rash of occurring first 2 to 8 week of treatment with isolated cases after prolonged treatment; though benign may occur, discontinue treatment at first sign of rash unless clearly not a drug related; TC treatment may not prevent trash from becoming life-threatening or permanently disabling or disfiguring. Comment reaction include, nausea/vomiting, dizziness/vertigo, visual disturbances, somnolence, ataxia, pruritus/rash, pharyngitis, headache, rhinitis, diarrhea, fever, asthenia, insomnia, tremor, abdominal pain, cough, accidental injury, constipation, dysmenorrhea, incoordination, anxiety, seizures, irritability, anorexia, xerostomia, and photosensitivity. Serious reactions include: Rash, severe; St Rory syndrome; toxic epidermal necrosis; injury edema, hypersensitivity reactions. Including fatal, multiple organ failure to safe fatal, rash with eosinophilia systemic symptoms, DIC, neutropenia, leukopenia, thrombocytopenia, pancytopenia, aplastic anemia, hemolytic anemia, i pancreatitis, hepatic failure, rhabdomyolysis, worsening of suicidal ideation, worsening of depression, cleft lip/palate [first trimester use] DO not Change Cosmetic, perfumes or soap for next 4 weeks. The patient was advice to take lamotrigine as prescribed the patient was instructed not to deviate from the prescription dosages. Stop lamotrigine is the first sign of rash. Patient was insisted to inform office if any of the serious side effect develops. discuss therapy - Refer [facility] for therapy WELLBUTRIN XL 150 mg in am - may plan to top in near future [facility] 30 days today [facility] for 90 days sweating on Wellbutrin 300 mg dose Anxiety- Lexapro 20 mg daily Insomnia- Melatonin 1-3 mg at bedtime OTC Tobacco use- smoking cessation- stopped smoking 07/11/24 https://www.neva.or g/Vhhws-Aqeapg-Eipt ess/Ilvccn-Dtyopd-T onditions https://www.[employer]Star/cannabis-u hw-ovrllkyr-eieeosn na-adhd/ https://[employer]/depression/th t-exytfgfkg-iweqaey z-ex-krscvbisgs#alysa atments http_s://www.[facility].n ih.gov/health/topic s/ypnrom-mfeegb-ocz ications http_s://www.neva.o rg/Qctyw-Wpzkmk-Wrz ness/Treatments/Men vdm-Abbubh-Kdngtqva ons Recommend decrease/stop cannabis use as it may be negatively impacting mood, motivation, anxiety, sleep, focus; can also contribute to development of psychosis Patient educated on all medications including potential benefits, side effects, risks. Educated on proper dosing schedule and importance of compliance educated on all medications, benefits, side effects and risk, and educated on depression, anxiety, and ADHD, mood d/o and educated on compliance of medications, metabolic and movement d/o education appointment is, continue therapy discussion with patient about course of treatment and patient instructions. education on serotonin syndrome SSRI/SNRI side effects discussed including but not limited to, gastric upset, nausea, vomiting, diarrhea and/or constipation, weight changes, sexual side effects including loss of libido, increased suicidal thoughts/behaviors in children and young adults, and serotonin syndrome. Second generation antipsychotics (SGAs) have metabolic syndrome issues with weight gain, increase in prolactin, increased waist circumference, increased lipids, and increased glucose. Thus routine monitoring of weight, metabolic labs, etc. is indicated. A general rank ordering of antipsychotics that have the greatest to the least risk of metabolic effects is olanzapine, quetiapine, risperidone, ziprasidone, and aripiprazole. However, weight gain can occur with all of these drugs and considerable variability exists among patients receiving the same drug regarding the risk of metabolic effects. Anti-psychotic agents not only increase the risk of metabolic disorder, they also increase the risk of CVA, akathisia, and movement disorders including EPS or tardive dyskinesia (more common with first generation antipsychotics) and more. 06/30/2024 Other Bupropion Extended Release Oral Tablet (BUPROPION HCL EXTENDED-RELEAS E (ANTIDEPRESSANT ) - ORAL) material was published Depression- Lexapro 20 mg daily NO REFILL NEEDED TODAY educated on all rx discuss and educated on Wellbutrin for depression and also help stop smoking discuss therapy - will consider [facility] or Aminta for therapy Will increase WELLBUTRIN XL 300 mg in am - [facility] 30 days today [facility] for 90 days Anxiety- Lexapro 20 mg daily Insomnia- Melatonin 1-3 mg at bedtime OTC Tobacco use- smoking cessation plan to stop Labor Day decrease use https://www.neva.or g/Obtdq-Xolbip-Ejmc ess/Txjlxn-Zzhycj-Q onditions https://www.[employer]Star/cannabis-u nb-scsslvby-oakvvdf na-adhd/ https://psychGeospiza/depression/th a-wtuljzqxo-tybrkfy d-lc-rgnijftzxp#alysa atments http_s://www.nimh.n ih.gov/health/topic s/oygfcw-mydygq-jql ications http_s://www.neva.o rg/Edtbq-Plymei-Wgl ness/Treatments/Men zug-Avzqpu-Mvhcqgeu ons Recommend decrease/stop cannabis use as it may be negatively impacting mood, motivation, anxiety, sleep, focus; can also contribute to development of psychosis Patient educated on all medications including potential benefits, side effects, risks. Educated on proper dosing schedule and importance of compliance educated on all medications, benefits, side effects and risk, and educated on depression, anxiety, and ADHD, mood d/o and educated on compliance of medications, metabolic and movement d/o education appointment is, continue therapy discussion with patient about course of treatment and patient instructions. education on serotonin syndrome SSRI/SNRI side effects discussed including but not limited to, gastric upset, nausea, vomiting, diarrhea and/or constipation, weight changes, sexual side effects including loss of libido, increased suicidal thoughts/behaviors in children and young adults, and serotonin syndrome. Second generation antipsychotics (SGAs) have metabolic syndrome issues with weight gain, increase in prolactin, increased waist circumference, increased lipids, and increased glucose. Thus routine monitoring of weight, metabolic labs, etc. is indicated. A general rank ordering of antipsychotics that have the greatest to the least risk of metabolic effects is olanzapine, quetiapine, risperidone, ziprasidone, and aripiprazole. However, weight gain can occur with all of these drugs and considerable variability exists among patients receiving the same drug regarding the risk of metabolic effects. Anti-psychotic agents not only increase the risk of metabolic disorder, they also increase the risk of CVA, akathisia, and movement disorders including EPS or tardive dyskinesia (more common with first generation antipsychotics) and more. 07/28/2024 Other Lamotrigine Oral Tablet (LAMOTRIGINE - ORAL) material was published, Bupropion Extended Release Oral Tablet (BUPROPION HCL EXTENDED-RELEAS E (ANTIDEPRESSANT ) - ORAL) material was published Depression- Lexapro 20 mg daily NO REFILL NEEDED TODAY educated on all rx DISCUSS and educated on Lamotrigine - add Lamotrigine 25 mg daily foe 2 weeks then increase Lamotrigine to 50 mg daily discuss and educated on Wellbutrin for depression and also help stop smoking- patient stopped smoking with COVID 07/11/24 Lamotrigine lamotrigine has a serious rashes requiring hospitalization and discontinue treatment including Jose Rory syndrome rare case of toxic epidermal necrolysis and cache related deaths. Incidence with adjunct of epilepsy treatment 0.8% in 2 to 16 years old and 0.3% in adults, bipolar and other mood disorders incidence 0.8% this initial monotherapy and 0.13% as adjunctive treatment. Other risk factor may include concomitant use of valproate acid derivative or exceeding initial lamotrigine does or does as clinician recommendation; most life-threatening rash of occurring first 2 to 8 week of treatment with isolated cases after prolonged treatment; though benign may occur, discontinue treatment at first sign of rash unless clearly not a drug related; TC treatment may not prevent trash from becoming life-threatening or permanently disabling or disfiguring. Comment reaction include, nausea/vomiting, dizziness/vertigo, visual disturbances, somnolence, ataxia, pruritus/rash, pharyngitis, headache, rhinitis, diarrhea, fever, asthenia, insomnia, tremor, abdominal pain, cough, accidental injury, constipation, dysmenorrhea, incoordination, anxiety, seizures, irritability, anorexia, xerostomia, and photosensitivity. Serious reactions include: Rash, severe; St Rory syndrome; toxic epidermal necrosis; injury edema, hypersensitivity reactions. Including fatal, multiple organ failure to safe fatal, rash with eosinophilia systemic symptoms, DIC, neutropenia, leukopenia, thrombocytopenia, pancytopenia, aplastic anemia, hemolytic anemia, i pancreatitis, hepatic failure, rhabdomyolysis, worsening of suicidal ideation, worsening of depression, cleft lip/palate [first trimester use] DO not Change Cosmetic, perfumes or soap for next 4 weeks. The patient was advice to take lamotrigine as prescribed the patient was instructed not to deviate from the prescription dosages. Stop lamotrigine is the first sign of rash. Patient was insisted to inform office if any of the serious side effect develops. discuss therapy - will consider Pearl or Aminta for therapy Will decrease WELLBUTRIN XL 150 mg in am - may plan to top in near future [facility] 30 days today [facility] for 90 days sweating on Wellbutrin 300 mg dose Anxiety- Lexapro 20 mg daily Insomnia- Melatonin 1-3 mg at bedtime OTC Tobacco use- smoking cessation- stopped smoking 07/11/24 https://www.neva.or g/Lercf-Tlojbh-Fjky ess/Zegpdw-Caevns-D onditions https://www.[employer]Star/cannabis-u ga-skxsyzns-nbivgwg na-adhd/ https://psychGeospiza/depression/th t-bmcmexhyt-gggluzv n-ot-kemqikhuwj#alysa atments http_s://www.nimh.n ih.gov/health/topic s/gclxnf-kuyqcy-stq ications http_s://www.neva.o rg/Kocxu-Saekyk-Hzn ness/Treatments/Men bcc-Myawig-Ztxxyrdb ons Recommend decrease/stop cannabis use as it may be negatively impacting mood, motivation, anxiety, sleep, focus; can also contribute to development of psychosis Patient educated on all medications including potential benefits, side effects, risks. Educated on proper dosing schedule and importance of compliance educated on all medications, benefits, side effects and risk, and educated on depression, anxiety, and ADHD, mood d/o and educated on compliance of medications, metabolic and movement d/o education appointment is, continue therapy discussion with patient about course of treatment and patient instructions. education on serotonin syndrome SSRI/SNRI side effects discussed including but not limited to, gastric upset, nausea, vomiting, diarrhea and/or constipation, weight changes, sexual side effects including loss of libido, increased suicidal thoughts/behaviors in children and young adults, and serotonin syndrome. Second generation antipsychotics (SGAs) have metabolic syndrome issues with weight gain, increase in prolactin, increased waist circumference, increased lipids, and increased glucose. Thus routine monitoring of weight, metabolic labs, etc. is indicated. A general rank ordering of antipsychotics that have the greatest to the least risk of metabolic effects is olanzapine, quetiapine, risperidone, ziprasidone, and aripiprazole. However, weight gain can occur with all of these drugs and considerable variability exists among patients receiving the same drug regarding the risk of metabolic effects. Anti-psychotic agents not only increase the risk of metabolic disorder, they also increase the risk of CVA, akathisia, and movement disorders including EPS or tardive dyskinesia (more common with first generation antipsychotics) and more. 05/30/2024 Other Learning About Depression Screening material was printed, Bupropion Extended Release Oral Tablet (BUPROPION HCL EXTENDED-RELEAS E (ANTIDEPRESSANT ) - ORAL) material was published Depression- Lexapro 20 mg daily NO REFILL NEEDED TODAY educated on all rx discuss and educated on Wellbutrin for depression and also help stop smoking discuss therapy - will consider Pearl or Aminta for therapy Will add WELLBUTRIN XL 150 mg in am - [facility] 30 days today [facility] for 90 days Anxiety- Lexapro 20 mg daily Insomnia- Melatonin 1-3 mg at bedtime OTC Tobacco use- smoking cessation plan to stop Labor Day decrease use https://www.neva.or g/Citcx-Jxsijd-Ilsk ess/Dvvkmn-Xspwan-C onditions https://www.Axeda.SwiftPayMD(TM) by [employer]/cannabis-u hj-dvhenvkf-rxfpgaq na-adhd/ https://psychcentra lDwellablecom/depression/th z-vqldkzzhw-xhkrkyx y-od-kwrlzkeaoa#alysa atments http_s://www.nimh.n ih.gov/health/topic s/idasrs-lzmrke-yla ications http_s://www.neva.o rg/Bphgm-Lmhkuf-Lib ness/Treatments/Men liy-Ukbnwm-Kaocjcdf ons Recommend decrease/stop cannabis use as it may be negatively impacting mood, motivation, anxiety, sleep, focus; can also contribute to development of psychosis Patient educated on all medications including potential benefits, side effects, risks. Educated on proper dosing schedule and importance of compliance educated on all medications, benefits, side effects and risk, and educated on depression, anxiety, and ADHD, mood d/o and educated on compliance of medications, metabolic and movement d/o education appointment is, continue therapy discussion with patient about course of treatment and patient instructions. education on serotonin syndrome SSRI/SNRI side effects discussed including but not limited to, gastric upset, nausea, vomiting, diarrhea and/or constipation, weight changes, sexual side effects including loss of libido, increased suicidal thoughts/behaviors in children and young adults, and serotonin syndrome. Second generation antipsychotics (SGAs) have metabolic syndrome issues with weight gain, increase in prolactin, increased waist circumference, increased lipids, and increased glucose. Thus routine monitoring of weight, metabolic labs, etc. is indicated. A general rank ordering of antipsychotics that have the greatest to the least risk of metabolic effects is olanzapine, quetiapine, risperidone, ziprasidone, and aripiprazole. However, weight gain can occur with all of these drugs and considerable variability exists among patients receiving the same drug regarding the risk of metabolic effects. Anti-psychotic agents not only increase the risk of metabolic disorder, they also increase the risk of CVA, akathisia, and movement disorders including EPS or tardive dyskinesia (more common with first generation antipsychotics) and more. Plan Of Treatment No Information Insurance Providers Payer Name Payer Address Payer Phone Subscriber Number Group Number Insured Name Patient Relationship to Insured Coverage Start Date Coverage End Date [facility] [address] [place] [phone] [id number] Anh Evans Self - patient is the insured Medical (General) History Medical History History ICD Code Past Psychiatric History: Anxiety Disord er abdominal aortic aneurysm: No atrial fibrillation: No chronic fatigue syndrome: No essential tremor: No hyperlipidemia: No hypertension: Yes Parkinson's disease: No restless leg syndrome: No stroke: No subdural hematoma: No type 1 diabetes mellitus: No type 2 diabetes mellitus: No vitamin B12 deficiency: No vitamin D deficiency: Yes Surgical History Surgery Date(Month/Year) partial hysterectomy c section
--- OUTSIDE RECORDS SUMMARY | 2025-04-14 08:05 | XMS_ITS | Encounter Summary ---
Author Organization [facility] Address [address] [place] [address] Phone Care Team Providers Care Shovel Oiler Name Role Phone Yennifer Weaver PAC Primary Care Pro vider Reason for Referral * Radiology Services (Routine) - Closed Specialty Diagnoses / Procedures Referred By Contac t Referred To Contact Radiology Diagnoses Encounter for screening mammogram for breast cancer Procedures SOHAN SCREENING BILATERAL DIGITAL W CAD W MATILDE Yennifer Weaver, PAC [address] [place] [address] Phone: tel: fax: Referral ID Status Reason Start Date Expiration Date Visits Re quested Visits Authorized [id number] Closed 03/14/2025 1 1 Encounter Details Date Type Department Care Team (Late st Contact Info) Description 03/14/2025 Transcribe Orders [facility] Call Center [address] [place] [address] [place] [address] Yennifer Weaver, PAC [address] [place] [address] Encounter for screening mammogram for breast cancer (Primary Dx) Social History Tobacco Use Types Packs/Day Years Used Date Smoking Tobacco: Every Day Cigarettes 0.5 16 Started: 04/15/2009 Smokeless Tobacco: Never Alcohol Use Standard Drinks/Week Comments Yes 0 (1 standard drink = 0.6 oz pur e alcohol) [facility] Utilities Answer Date Recorded In the past [...] relatives? Three times a week 04/15/2024 Attends [employer] Services Not on file 04/15 Active Member [...] care, and heating? Not very hard 04/15/2024 [facility] - Occupational Stress [...] any time in the past 12 m [facility], were you homeless or living in a long-term (including now)? No 04/15/2024 Comments No Sex and Gender Information Value Date Recorded Sex Assigned at Not on file Legal Sex Female 10:19 AM CDT Gender Identity Not on file Sexual Orientation Not on file documented as of this encounter Plan of Treatment Pending Results Name Type Priority Associated Diagnoses Date /Time SOHAN SCREENING BILATERAL DIGITAL W CAD W MATILDE Imaging Routine Encounter for screening mammogram for breast cancer 04/14/2025 7:38 AM CDT Scheduled Orders Name Type Priority Associated Diagnoses Orde r Schedule SOHAN SCREENING BILATERAL DIGITAL W CAD W MATILDE Imaging Routine Encounter for screening mammogram for breast cancer Expected: 03/14/2025, Expires: 03/14/2026 documented as of this encounter Visit Diagnoses Diagnosis Encounter for screening mammogram for breast cancer- Primary documented in this encounter Care Teams Shovel Oiler Relationship Specialty Start Date End Date Yennifer Weaver PAC [address] [place] [address] PCP - General Physician [employer] Hat[employer] Worker 04/15/24 documented as of this encounter
--- OUTSIDE RECORDS SUMMARY | 2025-04-14 08:05 | XMS_ITS | Data Portability ---
Author Organization [place] [facility] [employer], Main Office Address [address] [place] [address] Assessment Encounter Date Assessment Date Assessment LastModified by Organization Details LastModified Time 02/15/2024 02/15/2024 The patient gave verbal consent using TelePhonic services and the consent is documented in the medical record prior to using the service. The patient has been informed of what a TeleMedicine visit is. Patient is located at home. Provider is located at office. Names and roles of persons in addition to the patient and provider participating in telemedicine services include none. The patient had a 11 minute TeleMedicine consultation via phone call to discuss the following: Not available 02/15/2024 12:42:25 Plan of Treatment Reminders Order Date Submit Date Provider Last Modified By Organization Details Last Modified Time Details Appointments None recorded. Lab lipid panel, serum 2023 024 [email or web address] [id number] Not available 4 07:53:52 HbA1c (hemoglobin A1c), blood 2023 024 [email or web address] [id number] Not available 4 07:53:52 BMP, serum or plasma 2023 024 [email or web address] Not available 4 07:53:52 vitamin D3, 25-hydroxy, serum 2023 024 [email or web address] Not available 4 07:53:52 Referral psychiatris t referral - Please call patient to schedule an appointment . Thank you. 2023 024 [email or web address] [facility], [address] [place] [address] , [place], [address], 4 08:45:00 gastroenter ologist referral - Please call patient to schedule appointment . 2023 024 [email or web address] [facility], [address], [address], [place], [address], 4 13:30:04 Procedures None recorded. Surgeries None recorded. Imaging MAMMO, screening, bilateral - *Please call pt to schedule* 2023 024 [email or web address] [address] [facility] (Radiology), [address] [facility] , [place], [address], 4 09:07:49 Medication Orders Vyvanse 30 mg capsule 2023 024 [facility] #[id number], [address], [place], [place], [id number], 4 14:35:46 metoprolol succinate ER 50 mg tablet,exte nded release 24 hr 2023 024 [facility] #73693, [address], [place], [place], [id number], 4 11:43:59 albuterol sulfate HFA 90 mcg/actuati on aerosol inhaler 2023 024 [facility] #53120, [address], [place], [place], [id number], 4 14:52:25 topiramate 25 mg tablet 2023 024 [facility]25938, [address], [place], [place], [id number], 4 14:52:23 escitalopra m 20 mg tablet 2023 024 [email or web address] [facility]300, [address], [place], [place], [id number], 4 12:42:31 losartan 100 mg-hydrochl orothiazide 25 mg tablet 2023 024 [facility]87067, [address], [place], [place], [id number], 4 14:52:24 losartan 100 mg-hydrochl orothiazide 25 mg tablet 2022 023 [facility], [address], [place], [address], 3 09:21:32 escitalopra m 10 mg tablet [address] [facility], [address], [place], [address], 4 11:30:44 bupropion HCl XL 300 mg 24 hr tablet, extended release [address] [facility], [address], [place], [address], 3 09:11:43 Patient TargetsNo targets recorded. Patient Instructions Encounter Date Encounter Id Patient Instructions Last Modified By Organization Details Last Modified Time 02/15/2024 [id number] Due to the COVID-19 (Novel Coronavirus) pandemic, it is within this context (and with the understanding that this method of patient encounter is in the patient s best interest as well as the health and safety of other patients and the public) that [facility] is being provided for this patient encounter rather than a bery-fm-yxfx visit. This patient encounter is appropriate at this time. This patient has been advised of the potential risks and limitations of this mode of treatment (including, but not limited to, the absence of in-person examination) and has agreed to be treated in a remote fashion despite these risks. Any and all of the patient s /patient s family s questions on this issue have been answered, and I have made no promises or guarantees to the patient. The patient has also been advised to contact this office for worsening conditions or problems, and seek emergency medical treatment and/or call 911 if the patient deems either necessary. HPI and/or vitals, if listed, were provided by the patient. [email or web address] Not available 02/15/2024 12:25:43 Reason for Referral Technology Advisor Referral for Screening for malignant neoplasm of colon Please call patient to schedule appointment. Referring Physician: Elvira Glass, [facility], Encounter Date: 11/12/2023 Psychiatrist Referral for Mi xed anxiety and depressive disorder Please call patient to schedule an appointment. Thank you. Referring Physician: Elvira Glass, [facility], Encounter Date: 02/15/2024 Results Created Date Observation Date Name Description Value Unit Range Abnormal Flag Note LastModifiedBy Organization Detail LastModifiedTime 12/30/19 24 12/31/2023 LIPID PANEL , STAND CARLOS cholesterol, total 202 mg/dL <200 high Not Available [employer] [address], [address], 12/31/2023 06:46:20 12/30/1912/31/2023 LIPID PANEL , STAND CARLOS HDL cholesterol 56 mg/dL > or = 50 normal Not Available [employer] [address], [address], 12/31/2023 06:46:20 12/30/1912/31/2023 LIPID PANEL , STAND CARLOS triglyceride s 202 mg/dL <150 high If a non-f astin g speci men was colle cted, consi aguila repea t trigl yceri de testi ng on a fasti ng speci men if clini karo indic ated. Sonu roque et al. J. of Clin. Lipid ol. 2015; 9:129 -169. Not Available [employer] [facility] [address] [place], [address], 12/31/2023 06:46:20 12/30/19 24 12/31/2023 LIPID PANEL , STAND CARLOS LDL-choleste rol 114 mg/dL _(crys c) high Refer ence range : <100 Davy able range <100 mg/dL for prima ry preve ntion ; <70 mg/dL for patie nts with CHD or diabe tic patie nts with > or = 2 CHD risk facto rs. LDL-C is now calcu lated using the [facility] kins calcu rasheed n, which is a valid ated novel metho d provi dutch henrietta r accur acy than the Fried caridad equat ion in the estim ation of LDL-C . Priscilla n SS et al. MOY. 2013; 310(1 9): 2061- 2068 (http ://ed ucati on.Rewardli. Vivocha/f aq/FA Q164) Not Available [facility] [address] [address] [place], [address], 12/31/2023 06:46:20 12/30/1912/31/2023 LIPID PANEL , STAND CARLOS chol/HDLC ratio 3.6 (calc ) <5.0 normal Not Available [facility] [address] [address] [place], [address], 12/31/2023 06:46:20 12/30/19 24 12/31/2023 LIPID PANEL , STAND CARLOS non HDL cholesterol 146 mg/dL _(crys c) <130 high For patie nts with diabe leonarda plus 1 major ASCVD risk facto r, treat ing to a non-H DL-C goal of <100 mg/dL (LDL- C of <70 mg/dL ) is consi dered a thera peuti c optio n. Not Available [facility] [address] [address] [place], [address], 12/31/2023 06:46:20 12/30/1912/31/2023 BASIC METAB OLIC PANEL glucose 97 mg/dL 65-99 normal Fasti ng refer ence inter louis Not Available [facility] [address] [place], [address], 12/31/2023 06:46:21 12/30/19 24 12/31/2023 BASIC METAB OLIC PANEL urea nitrogen (BUN) 24 mg/dL 7-25 normal Not Available [address], [address], 12/31/2023 06:46:21 12/30/19 24 12/31/2023 BASIC METAB OLIC PANEL creatinine 1.01 mg/dL 0.50-0 .99 high Not Available [address], [address], 12/31/2023 06:46:21 12/30/19 24 12/31/2023 BASIC METAB OLIC PANEL eGFR 70 mL/mi n/1.7 3m2 > or = 60 normal Not Available [address], [address], 12/31/2023 06:46:21 12/30/19 24 12/31/2023 BASIC METAB OLIC PANEL BUN/creatini ne ratio 24 (calc ) 6-22 high Not Available [address], [address], 12/31/2023 06:46:21 12/30/19 24 12/31/2023 BASIC METAB OLIC PANEL sodium 137 mmol/ L 135-14 6 normal Not Available [address], [address], 12/31/2023 06:46:21 12/30/19 24 12/31/2023 BASIC METAB OLIC PANEL potassium 4.6 mmol/ L 3.5-5. 3 normal Not Available [address], [address], 12/31/2023 06:46:21 12/30/19 24 12/31/2023 BASIC METAB OLIC PANEL chloride 101 mmol/ L 98-110 normal Not Available [address], [address], 12/31/2023 06:46:21 12/30/19 24 12/31/2023 BASIC METAB OLIC PANEL carbon dioxide 27 mmol/ L 20-32 normal Not Available [address] [address] [place], [address], 12/31/2023 06:46:21 12/30/19 24 12/31/2023 BASIC METAB OLIC PANEL calcium 9.7 mg/dL 8.6-10 .2 normal Not Available [facility] [address] [address] [place], [address], 12/31/2023 06:46:21 12/30/19 24 12/31/2023 VITAM IN D,25- OH,TO BRYNN,I A vitamin D,25-oh,tota l,ia 26 NG/mL 30-100 low Vitam in D Statu s 25-OH Vitam in D: Defic iency : <20 ng/mL Insuf ficie ncy: 20 - 29 ng/mL Optim al: > or = 30 ng/mL For 25-OH Vitam in D testi ng on patie nts on D2-hyman pplem entat ion and patie nts for whom quant itati on of D2 and D3 fract ions is requi red, the [facility] Assur eD(TM ) 25-OH VIT D, (D2,D 3), LC/MS /MS is recom talat d: order code 27176 (radha ents >2yrs ). See Note 1 Note 1 For addit ional infor shaila hinton refer to http: //radha Almeida stDia gnost ics.c om/fa q/FAQ 199 (This link is being provi ded for infor rajat olivera/ michael hernandes purpo ses only. ) Not Available [facility] [address] [place], [address], 12/31/2023 06:46:23 12/30/19 24 12/31/2023 HEMOG LOBIN A1C hemoglobin A1C 5.5 %_of_ total _HGB <5.7 normal For the purpo se of scree liana for the prese nce of diabe leonarda: <5.7% Consi stent with the absen ce of diabe leonarda 5.7-6 .4% Consi stent with incre ased risk for diabe leonarda (pred iabet es) > or =6.5% Consi stent with diabe leonarda This assay resul t is consi stent with a decre ased risk of diabe leonarda. Curre ntly, no conse nsus exist s juan j judd use of hemog lobin A1c for diagn osis of diabe leonarda in child micheline. Accor ding to Ameri can Diabe leonarda Assoc iatio n (ADA) guide lines , hemog lobin A1c <7.0% repre sents optim al contr ol in non-p regna nt diabe tic patie nts. Diffe rent metri cs may apply to speci fic patie nt popul ation s. Stand ards of Medic al Care in Diabe leonarda(A DA). This test was perfo rmed on the Abbot t Archi tect c8000 platf orm. Pleas e be advis ed that [facility] will move hemog lobin A1c testi ng to the May platf orm soon. In gener al, direc t jesus rison of the resul ts from diffe rent platf orms is not recom talat d. Not Available [employer] [facility] [address] [place], [address], 12/31/2023 06:46:23 Result Notes None recorded. Problems Name Problem SNOMED Code Status Onset Date Resolution Date Notes Provider Name and Address Organization Details Recorded Time Gestational diabetes mellitus 01105774 Active 2019 Not Available [facility] 3 19:48:45 Anxiety 13286465 Active 2019 Not Available [employer] 3 19:48:45 Vocal nodules in adults 40763997 Active 2021 Not Available [facility] 3 19:48:45 Essential hypertension 40792160 Active 2019 Not Available [facility] 3 19:48:45 Mixed anxiety and depressive disorder 187330214 Active 2022 Elvira Glass MD [address], [address], [place], [address] , [employer] 3 12:08:55 Elevated blood-pressur e reading without diagnosis of hypertension 656663100 Active 2022 Elvira Glass MD [address], [address], [place], [address] , [employer] 3 12:09:24 Hyperglycemia 91705495 Active 2023 Elvira Glass MD [address], [address], [place], [address] , [employer] 4 14:30:44 Vitamin D deficiency 92850774 Active 2023 Elvira Glass MD [address], [address], [place], [address] , [employer] 4 14:31:15 Bronchitis 26016649 Active 2023 Elvira Glass MD [address], [address], [place], [address] , [employer] 4 14:50:11 Moderate recurrent major depression 89918376 Active 2023 Elvira Glass MD [address], [address], [place], [address] , [employer] 4 13:44:57 Major depressive disorder 218402604 Active 2023 Elvira Glass MD [address], [address], [place], [address] , [employer] 4 13:45:08 Problem Notes None recorded. Procedures Surgical History Date Name Laterality Status Provider Name and Address Organization Details Recorded Time 01/06/20 24 Colonoscopy completed Claudia Aden LPN [employer] 01/06/2024 12:11:34 section completed Not Available [facility] 12/31/2022 19:48:20 uterine myomectomy completed Not Available [facility] 12/31/2022 19:48:20 Imaging Results None recorded. Procedure Notes None recorded. Medical Equipment None Reported. Allergies No known drug allergies Medications Name Sig Start Date Stop Date Status Note LastModified by Organization Details LastModified Time losartan 50 mg tablet TAKE 1 TABLET BY MOUTH ONCE DAILY 04/02 completed Not Available Not Available Not Available fluoxetine 40 mg capsule TAKE 1 CAPSULE BY MOUTH ONCE DAILY 04/02 completed Not Available Not Available Not Available promethazin e-DM 6.25 mg-15 mg/5 mL oral syrup TAKE 5 ML BY MOUTH EVERY 6 HOURS NEEDED FOR COUGH 01/29 completed Not Available Not Available Not Available venlafaxine ER 75 mg capsule,ext ended release 24 hr Take 1 capsule every day by oral route. active Not Available Not Available No t Available labetalol 200 mg tablet TAKE 1 TABLET PO BID active Not Available Not Available No t Available azithromyci n 250 mg tablet TAKE 2 TABLETS BY MOUTH FOR 1 DAY THEN TAKE 1 TABLET BY MOUTH DAILY FOR 4 DAYS. 11/12 completed Not Available Not Available Not Available clonidine 0.2 mg/24 hr weekly transdermal patch 01/01 completed Not Available Not Available Not Available fluconazole 150 mg tablet TAKE 1 TABLET BY MOUTH 1 TIME FOR 1 DOSE 08/22 completed Not Available Not Available Not Available benzonatate 200 mg capsule TAKE 1 CAPSULE BY MOUTH THREE TIMES DAILY NEEDED FOR COUGH 08/22 completed Not Available Not Available Not Available metoprolol succinate ER 50 mg tablet,exte nded release 24 hr TAKE 1 TABLET BY MOUTH EVERY DAY active Not Available Not Available No t Available hydrocodone 5 mg-acetamin ophen 325 mg tablet TAKE 1 TABLET BY MOUTH EVERY 4 HOURS NEEDED 04/02 completed Not Available Not Available Not Available ondansetron HCl 4 mg tablet 07/29 completed Not Available Not Available Not Available prednisone 20 mg tablet 2 po qAM with food x 5 days active Not Available Not Available No t Available sertraline 100 mg tablet TK 1 T PO QD active Not Available Not Available No t Available topiramate 25 mg tablet TAKE 1 TABLET BY MOUTH TWICE DAILY active Not Available Not Available No t Available phentermine 30 mg capsule TAKE 1 CAPSULE BY MOUTH ONCE DAILY 02/14 completed Not Available Not Available Not Available losartan 100 mg-hydrochl orothiazide 25 mg tablet TAKE 1 TABLET BY MOUTH EVERY DAY active Not Available Not Available No t Available oxycodone-a cetaminophe n 5 mg-325 mg tablet 01/01 completed Not Available Not Available Not Available alprazolam 0.5 mg tablet TK 1/ T PO Q 6 H PRA active Not Available Not Available No t Available progesteron e 50 mg/mL intramuscul ar oil INJ 1 ML IM QD UTD 01/01 completed Not Available Not Available Not Available amoxicillin 875 mg tablet Take 1 tablet every 12 hours by oral route for 7 days. active Not Available Not Available No t Available nifedipine ER 60 mg tablet,exte nded release 24 hr 01/01 completed Not Available Not Available Not Available nifedipine ER 90 mg tablet,exte nded release 24 hr 01/01 completed Not Available Not Available Not Available misoprostol 200 mcg tablet 01/01 completed Not Available Not Available Not Available progesteron e micronized 200 mg capsule TK ONE C PO BID 01/01 completed Not Available Not Available Not Available fluoxetine 10 mg capsule Take 1 capsule every day by oral route. active Not Available Not Available No t Available estradiol 2 mg tablet TAKE 2 TABLETS PO QAM 01/01 completed Not Available Not Available Not Available folic acid 1 mg tablet TK 1 T PO ONCE A DAY 01/01 completed Not Available Not Available Not Available hydralazine 50 mg tablet 01/01 completed Not Available Not Available Not Available hydrochloro thiazide 25 mg tablet TAKE 1 TABLET BY MOUTH ONCE DAILY 04/02 completed Not Available Not Available Not Available ibuprofen 600 mg tablet active Not Available Not Available Not Available letrozole 2.5 mg tablet 03/18 completed Not Available Not Available Not Available methylpredn isolone 4 mg tablets in a dose pack FOLLOW PACKAGE DIRECTION S 11/12 completed Not Available Not Available Not Available albuterol sulfate HFA 90 mcg/actuati on aerosol inhaler INHALE 2 PUFFS BY MOUTH EVERY 4 HOURS active Not Available Not Available No t Available norethindro ne (contracept tu) 0.35 mg tablet active Not Available Not Available No t Available fluoxetine 20 mg capsule Take 1 capsule every day by oral route. active Not Available Not Available No t Available fluticasone propionate 50 mcg/actuati on nasal spray,suspe nsion SHAKE LIQUID AND USE 2 SPRAYS IN EACH NOSTRIL EVERY DAY 07/29 completed Not Available Not Available Not Available sertraline 50 mg tablet active Not Available Not Available Not Available amoxicillin 875 mg-potassiu m clavulanate 125 mg tablet TAKE 1 TABLET BY MOUTH EVERY 12 HOURS 01/04 completed Not Available Not Available Not Available amoxicillin 500 mg-potassiu m clavulanate 125 mg tablet 01/01 completed Not Available Not Available Not Available Low Dose Aspirin 81 mg tablet,maykel yed release Take 1 tablet every day by oral route. 01/01 completed Not Available Not Available Not Available escitalopra m 10 mg tablet TAKE 1 TABLET BY MOUTH ONCE DAILY 01/04 completed Not Available Not Available Not Available escitalopra m 20 mg tablet TAKE 1 TABLET BY MOUTH EVERY DAY active Not Available Not Available No t Available bupropion HCl XL 300 mg 24 hr tablet, extended release TAKE 1 TABLET BY MOUTH DAILY 04/02 completed Not Available Not Available Not Available bupropion HCl XL 150 mg 24 hr tablet, extended release TAKE 1 TABLET BY MOUTH ONCE DAILY 04/02 completed Not Available Not Available Not Available 01/01 completed Not Available Not Available Not Available Elestrin 0.87 gram/actuat ion (0.06%) transdermal gel pump APPLY 2 PUMPS TO EACH INNER ARM QPM 01/01 completed Not Available Not Available Not Available lisdexamfet amine 30 mg capsule TAKE 1 CAPSULE BY MOUTH EVERY DAY active Not Available Not Available No t Available desvenlafax ine succinate ER 50 mg tablet,exte nded release 24 hr TAKE 1 TABLET BY MOUTH EVERY DAY 03/08 completed Not Available Not Available Not Available venlafaxine ER 150 mg tablet,exte nded release 24 hr TAKE 1 TABLET BY MOUTH EVERY DAY 02/04 completed Not Available Not Available Not Available venlafaxine ER 75 mg tablet,exte nded release 24 hr Take 1 tablet every day by oral route with 150 mg tablet active Not Available Not Available No t Available + DHA 28 mg iron-975 mcg-200 mg oral pack TK 1 CAPSULE FROM EACH BOTTLE PO ONCE DAILY active Not Available Not Available No t Available OneTouch Verio test strips 01/01 completed Not Available Not Available Not Available DHA 200 mg capsule TAKE 1 CAPSULE BY MOUTH ONCE A DAY 01/01 completed Not Available Not Available Not Available Multi-DHA (algal oil) 27 mg iron-800 mcg-250 mg capsule TK 1 C PO D 01/01 completed Not Available Not Available Not Available OneTouch Verio Meter 01/01 completed Not Available Not Available Not Available Virt-Andrea 2.2 mg-25 mg-1 mg tablet TK ONE T PO BID 01/01 completed Not Available Not Available Not Available Trintellix 10 mg tablet Take 1 tablet every day by oral route. 02/14 completed Not Available Not Available Not Available OneTouch Delica Plus Lancet 33 gauge 01/01 completed Not Available Not Available Not Available Vitals Date Recorded Body height Body mass index (BMI) Body weight Body temperature Heart rate Oxygen saturation Oxygen saturation in Arterial blood by Pulse oximetry Systolic blood pressure Diastolic blood pressure Provider Name and Address Organization Details Last Updated DateTime 4 162.56 cm 50.6 kg/m2 815571. 75 g 97.4 [degF] 95 /min 99 % 99 % 180 mm[Hg] 102 mm[Hg] Rickie Valadez RN [facility] [employer] [facility] 4 14:15:03 Date Recorded Body height Body mass index (BMI) Body weight Body temperature Heart rate Oxygen saturation Oxygen saturation in Arterial blood by Pulse oximetry Systolic blood pressure Diastolic blood pressure Provider Name and Address Organization Details Last Updated DateTime 4 162.56 cm 49.3 kg/m2 499399. 01 g 97.3 [degF] 102 /min 98 % 98 % 160 mm[Hg] 82 mm[Hg] ROLAND Marshall [facility] [employer] [facility] 4 11:28:48 Date Recorded Body height Body mass index (BMI) Body weight Provider Name and Address Organization Details Last Updated DateTime 02/15/2024 162.56 cm 47.9 kg/m2 303653.27 g Rickie Valadez RN [facility] [employer] [facility] 02/15/2024 12:26:04 Date Recorded Body height Body mass index (BMI) Body weight Body temperature Heart rate Oxygen saturation Oxygen saturation in Arterial blood by Pulse oximetry Systolic blood pressure Diastolic blood pressure Provider Name and Address Organization Details Last Updated DateTime 3 162.56 cm 49.3 kg/m2 032476. 01 g 96.8 [degF] 87 /min 97 % 97 % 145 mm[Hg] 100 mm[Hg] Brenda Rascon MA [facility] 3 11:48:56 Date Recorded Body height Body mass index (BMI) Body weight Body temperature Heart rate Oxygen saturation Oxygen saturation in Arterial blood by Pulse oximetry Systolic blood pressure Diastolic blood pressure Provider Name and Address Organization Details Last Updated DateTime 3 162.56 cm 49.6 kg/m2 665925. 19 g 97.3 [degF] 94 /min 97 % 97 % 166 mm[Hg] 112 mm[Hg] Rickie Valadez RN [facility] [employer] 3 08:59:05 Social History Question Answer Notes LastModified by Organizat ion Details LastModified Time Tobacco Smoking Status Current Some Day Smoker up to 5 per day Elvira Glass MD [address] [place] [address], [address], [facility] 11/12/2023 14:24:14 Do You Have An Advance Directive? No [id number] Information not available 12/31/2022 Do You Wear A Helmet When Biking? Yes Information not available 04/02/2023 What Is Your Level Of Caffeine Consumption? Heavy [email or web address] Information not available 02/18/2023 In The 14 Days Before Symptom Onset, Have You Had Close Contact With A Laboratory-confi rmed COVID-19 While That Case Was Ill? Yes [email or web address] Information not available 04/02/2023 In The 14 Days Before Symptom Onset, Have You Had Close Contact With A Person Who Is Under Investigation For COVID-19 While That Person Was Ill? No Information not available 04/02/2023 What Type Of Diet Are You Following? [id number] [id number] Information not available 12/31/2022 Have There Been Any Changes To Your Family Or Social Situation? No [email or web address] Information not available 04/02/2023 Are There Any Guns Present In Your Home? No [email or web address] Information not available 04/02/2023 Do You Use Insect Repellent Routinely? Yes [email or web address] Information not available 04/02/2023 Where Do You Live? [facility] [email or web address] Information not available 04/02/2023 Do You Have A Medical Power Of Tieing Machine Operator? No [email or web address] Information not available 04/02/2023 What Was The Date Of Your Most Recent Tobacco Screening? 11/12/2023 Information not available 11/12/2023 Have You Ever Been Counseled For Unhealthy Alcohol Use? No [email or web address] Information not available 04/02/2023 Do You Have Any Pets? Yes [email or web address] Information not available 04/02/2023 What Is Your Relationship Status? [id number] Information not available 12/31/2022 Do You Use Your Seat Belt Or Car Seat Routinely? Yes [email or web address] Information not available 04/02/2023 Do You Have Smoke And Carbon Monoxide Detectors In Your Home? Yes Information not available 04/02/2023 Are You Passively Exposed To Smoke? No [email or web address] Information not available 04/02/2023 Are There Any Smokers In Your House? No [email or web address] Information not available 04/02/2023 Do You Participate In Social Media? Yes Information not available 04/02/2023 Do You Use Sunscreen Routinely? Yes [email or web address] Information not available 04/02/2023 Has Tobacco Cessation Counseling Been Provided? No Information not available 04/02/2023 Have You Recently Traveled Abroad? No [email or web address] Information not available 04/02/2023 Are You Currently In School? No [email or web address] Information not available 04/02/2023 Do You Have Any Dietary Restrictions? No [email or web address] Information not available 04/02/2023 Sex: Female Functional Status Question Answer Note LastModified by Organizat ion Details LastModified Time Do you use any illicit or recreational drugs? No [email or web address] Information not available 04/02/2023 Do you or have you ever used any other forms of tobacco or nicotine? No [email or web address] Information not available 04/02/2023 What is your level of alcohol consumption? Moderate [email or web address] Information not available 02/18/2023 What is your exercise level? Occasional [id number] Information not available 12/31/2022 Mental Status Question Answer Note LastModified by Organization D etails LastModified Time Do you feel stressed (tense, restless, nervous, or anxious, or unable to sleep at night)? [id number] [email or web address] Information not available 04/02/2023 Family History Relationship Description Onset Age of this Age Resolved Age Notes LastModified by Organization Details LastModified Time Father Essential hypertension [id number] Not available 12/31/2022 19:48:21 Father Malignant tumor of pancreas [id number] Not available 12/31/2022 19:48:21 Mother Essential hypertension [id number] Not available 12/31/2022 19:48:21 Paternal Grandmother Malignant tumor of breast [id number] Not available 12/31/2022 19:48:21 Medical History Condition Response MRSA N SLEEP APNEA N ALLERGIES/HAYFEVER N LUNG DISEASE/DISORDER N HISTORY OF DRUG ABUSE N INSOMNIA N COPD N RADIATION / CHEMOTHERAPY N HIGH CHOLESTEROL / HYPERLIPIDEMIA N HYPERTHYROIDISM N BLOOD DISEASES N EAR OR HEARING PROBLEMS N HYPOTHYROIDISM N SHINGLES N DEPRESSION (INCLUDING POST ) N HAVE YOU BEEN HOSPITALIZED OR SEEN IN [facility] ER IN THE PAST YEAR ? N STROKE/TIA N ULCERS N OBESITY N HISTORY WITH COMPLICATIONS WITH ANESTHES IA ? N ANEURYSM N USE OF BLOOD THINNERS N NO SIGNIFICANT PAST MEDICAL HISTORY N DIABETES, TYPE N PARATHYROID DISEASE N ENT N SEASONAL ALLERGIES N HEARTBURN / REFLUX N HEPATITIS / LIVER DISEASE N SLEEP DISORDER N HEADACHES/MIGRAINES N SEIZURES/EPILEPSY N CHF N PACEMAKER N DIZZINESS N HEART DISEASE/HEART PROBLEMS N AIDS/HIV N FRACTURES N HYPERTENSION N CANCER: SPECIFY N TOURETTE'S N BLOOD TRANSFUSION N ANESTHESIA COMPLICATIONS N ANEMIA/BLOOD DISORDER N CHRONIC EAR INFECTIONS N TUBERCULOSIS N Gynecological History Statement/Question Response Abnormal Pap N Flow Moderate Date of LMP 07/26/2022 STIs/STDs N Dislike of Light during Menstrual Headac he N Date of Last Pap 01/24/2021 Duration of Flow (days) 5 Current Control Method None Breast Problems none Date of Last Mammogram 07/30/2022 Frequency of Cycle (Q days) 28 Sexually Active? Y Menses Monthly Y Discharge none Obstetrics History GPAL:G 0 P 1 0 0 1 Type Value Full Term 1 Living 1 Immunizations Vaccine Type Date Status Note Provider Wilton mccormick and Address Organization Details Recorded Time COVID-19 PS Non-US Vaccine (EpiVacCorona ) 02/17/2021 completed Not Available [facility] 19:49:20 COVID-19 PS Non-US Vaccine (EpiVacCorona ) 01/28/2021 completed Not Available [facility] 19:49:20 Past Encounters Encounter ID Performer Location Encounter Start Date Encounter Closed Date Diagnosis/Indication Diagnosis SNOMED-CT Code Diagnosis ICD10 Code Diagnosis Note [id number] Elvira Glass MD [facility] Primary Care [address] [place] [address] 01/01/2021 00:00:00 01/01/2021 10:20:21 [id number] Elvira Glass MD [facility] Care [address] [place] [address] 03/08/2021 00:00:00 03/08/2021 10:01:57 [id number] Elvira Glass MD [facility] Care [address] [place] [address] 03/26/2021 00:00:00 03/26/2021 08:08:49 [id number] Elvira Glass MD [facility]_[address] [place] [address] 07/16/2021 00:00:00 07/16/2021 11:01:15 [id number] Elvira Glass MD [facility] Care [address] [place] [address] 08/22/2021 00:00:00 08/22/2021 14:30:44 [id number] [facility] ic_[facility] _ATHENA_M IGRATION_ DEFAULT_1 _1 , 11/15/2021 00:00:00 11/15/2021 12:19:25 [id number] Damir Spencer MD [facility] ENT Werner Noel [address] [place] [address] 01/29/2022 00:00:00 01/29/2022 16:25:23 [id number] Elvira Glass MD [facility] Primary Care [address] [place] [address] 07/29/2022 00:00:00 07/29/2022 14:01:22 [id number] Elvira Glass MD [facility] Primary Care [address] [place] [address] 02/18/2023 11:41:04 02/18/2023 12:27:12 Mixed anxiety and depressive disorder 876601491 F41.8 increase bupropion xl 300 mg qAMf/u in 6 weeks Elevated blood-pressure reading without diagnosis of hypertension 463050191 R03.0 has h/o white coat htncheck work bp readingsf/ u 6 weeks [id number] Elvira Glass MD [facility] Primary Care [address] [place] [address] 04/02/2023 08:51:58 04/02/2023 09:25:06 Essential hypertension 16881543 I10 not in good controlcha nge to losartan/h ctz 100/25 mg daily Mixed anxi ety and depressive disorder 015257219 F41.8 not in good controld/c fluoxetine and bupropionb egin escitalopr am 10 mg daily with foodf/u in 4 weeks or sooner if needed [id number] Elvira Glass MD [facility] Primary Care [address] [place] [address] 11/12/2023 14:06:44 11/12/2023 15:06:23 Adult health examination 218831535 Z00.00 Z13.220 sees dielectric testing machine operator for papsrecomm end flu and covid boosterche ck labsmammog idris order givencolon oscopy referral given Screening mammography 24 869078 Z12.31 Screening for malignant neoplasm of colon 683076183 Z12.11 Hyperglycemia 14522077 R 73.9 Vitamin D deficiency 347 34161 E55.9 Mixed anxi ety and depressive disorder 763014062 F41.8 not in good controld/c fluoxetine and bupropionb egin escitalopr am 10 mg daily with foodf/u in 4 weeks or sooner if needed update 11/12/23: increase escitalopr am 20 mg daily Dietary ma nagement surveillance 768835386 Z71.3 start topiramate consider phentermin e if bp is in good control Essential hypertension 98352297 I10 not in good controlcha nge to losartan/h ctz 100/25 mg dailyconsi aguila beta angela in future if no improvemen t Bronchitis 16510888 J40 has completed zpack [id number] Elvira Glass MD [facility] Primary Care [address] [place] [address] 01/05/2024 11:22:20 01/05/2024 11:46:13 Mixed anxiety and depressive disorder 883113207 F41.8 not in good controld/c fluoxetine and bupropionb egin escitalopr am 10 mg daily with foodf/u in 4 weeks or sooner if needed update 11/12/23: increase escitalopr am 20 mg daily update 01/05/24: trial of trintellix 10 mg daily-samp le givenf/u in 4 weeks Essential hypertension 99899174 I10 not in good controlcha nge to losartan/h ctz 100/25 mg dailyconsi aguila beta angela in future if no improvemen t update 01/05/24: add metoprolol ER 50 mg daily for both bp and tachycardi af/u in 4 weeks [id number] Elvira Glass MD [facility] Primary Care [address] [place] [address] 02/15/2024 12:23:54 02/15/2024 12:49:23 Mixed anxiety and depressive disorder 989908069 F41.8 not in good controld/c fluoxetine and bupropionb egin escitalopr am 10 mg daily with foodf/u in 4 weeks or sooner if needed update 11/12/23: increase escitalopr am 20 mg daily update 01/05/24: trial of trintellix 10 mg daily-samp le givenf/u in 4 weeks telephone 02/15/24: not in good controlinc rease escitalopr am 30 mgcontinue vyvanse 30 mg dailypsych referralpo rtal update in 2 weeks Health Concerns Section Related Observation LastModified by Organization Detai ls LastModified Time None Recorded Concern Status LastModified by Organization Details LastModified Time None Recorded Advance Directives Directive N: Payers Insurance Date Sequence Insurance Name Policy Number Policy Vaughn Covered Member ID Vaughn Member ID Guarantor Name 11/12/2023 1 [place] [id number] Anh Evans [id number] Anh Evans 02/18/2023 2 [place] [id number] Yung Evans [id number] Anh Evans 03/22/2024 1 [place] [id number] Yung Evans [id number] Anh Evans Notes Date Note Type Note Provider Name and Address Organization Details Recorded Time 02/18/2023 text/html here to f/u on mood, she just had hysterectomy and is not sure if she can assess how she feels. She denies any med s/e. She does have lower interests and motivation can be down. Elvira Glass MD [address], [employer], [place], [address], [employer] 02/27/2023 12:08:18 04/02/2023 text/html here to f/u on mood, she just had hysterectomy and is not sure if she can assess how she feels. She denies any med s/e. She does have lower interests and motivation can be down. update 04/02/23: Work blood pressure readings are 129/97, 128/93, 128/103, 135/97, 136/90. Walking 10,000 steps per day and watching diet but not losing weight. mood is still not doing well, she is tearful, irritable, mind can't turn off. Elvira Glass MD [address], [place], [address], [employer] 04/02/2023 09:23:19 11/12/2023 text/html Here for check u p, home readings are running 160s/80s planned to stop working at age 43, she and her worked toward that goallast day of work 07/31 and then laid off she wakes up feeling good, not as stressed versus when she worked. she feels more anxious than she did in the past. She was initially sleeping good but now back to sleeping only 4 hours or so, waking at 3 AM, mind racing. Her anxiety feels like it revolves a bit around her weight. She stays physically active with her daughter. Interests are good, motivation is ok. Recently did extensive lab testing for hormones Elvira Glass MD [address], [place], [address], [employer] 12/02/2023 07:32:06 01/05/2024 text/html Here for check u p, home readings are running 160s/80s planned to stop working at age 43, she and her worked toward that goallast day of work 07/31 and then laid off she wakes up feeling good, not as stressed versus when she worked. she feels more anxious than she did in the past. She was initially sleeping good but now back to sleeping only 4 hours or so, waking at 3 AM, mind racing. Her anxiety feels like it revolves a bit around her weight. She stays physically active with her daughter. Interests are good, motivation is ok. Recently did extensive lab testing for hormones update 01/05/24: Here for f/u, she stays active. Her anxiety is doing very well on escitalopram 20 mg daily but she has decreased motivation, depression not in great control. home blood pressures are 126/93, 128/98, 133/94, 136/91, 118/87. Elvira Glass MD [address], [place], [address], [employer] [facility] [employer] 01/26/2024 12:31:19 02/15/2024 text/html Here for check u p, home readings are running 160s/80s planned to stop working at age 43, she and her worked toward that goallast day of work 07/31 and then laid off she wakes up feeling good, not as stressed versus when she worked. she feels more anxious than she did in the past. She was initially sleeping good but now back to sleeping only 4 hours or so, waking at 3 AM, mind racing. Her anxiety feels like it revolves a bit around her weight. She stays physically active with her daughter. Interests are good, motivation is ok. Recently did extensive lab testing for hormones update 01/05/24: Here for f/u, she stays active. Her anxiety is doing very well on escitalopram 20 mg daily but she has decreased motivation, depression not in great control. home blood pressures are 126/93, 128/98, 133/94, 136/91, 118/87. telephone visit 02/15/24: feeling irritable, poor motivation, cries easily. Anxiety is in good control no si/hi Elvira Glass MD [address] [facility], [facility] [address], [place], [address], [facility] [employer] 03/21/2024 12:53:29 OBGyn Episode No OBEpisode recorded.
--- OUTSIDE RECORDS SUMMARY | 2025-04-14 08:05 | XMS_ITS | Referral Summary ---
Author Organization [facility] C Address [address] [place] [address] Care Team Providers Care Newspaper Or Periodical Editor Name Role Phone Elvira Glass MD Primary [...] (11/30/2019): Added automatically from request for surgery [id number] Gestational diabetes mellitu s (GDM) in second [...] AMA, Chronic HTN, obesity, h/o hysteroscopic myomectomy 01/2019([employer]) Assessment & Plan (07/12/2019 11:32 AM CDT): [...] AMA, Chronic HTN, obesity, h/o hysteroscopic myomectomy 01/2019([employer]) RTN in 1 week Assessment & Plan (06/30/2019 10:53 AM CDT): EDC: Estimated Date of Delivery: 01/14/2020 - Labs: drawn 06/30/19 -Blood type: O pos -Pap: [facility] -Aneuploidy testing: drawn 06/30/19 (red), donor egg 24 years old -Anatomy ultrasound: -GCT: -Tdap: -Flu: -GBS: -Contraception: -Peds: -/BF/FOB: Yung Primary reason for MFM care: IVF, AMA, Chronic HTN, obesity, h/o hysteroscopic myomectomy 01/2019([employer]) RTN in 2 weeks Primigravida of advanced [...] it, Preservative Free, Intramuscular 08/09/2019 Tdap 11/16/2019 Social History Tobacco Use Types Packs/Day Years [...] more drinks on one occasion? Never 06/07/2024 Hooper Depression Scale Answer Date Recorded Hooper Depression Scale Total 15 12/05/2019 The thought [...] 37.1 C (98.7 F) 11/04/2023 2:21 PM NORMALIZER Respiratory Rate 18 06/07/2024 11:31 AM CDT Oxygen Saturation 97% 11/04/2023 2:21 PM NORMALIZER Inhaled Oxygen Concentration - - Weight 132.5 kg (292 lb) 06/07/2024 11:31 AM CDT Height 162.6 cm (5' 4) 06/07/2024 11:31 AM CDT Body Mass Index 50.12 06/07/2024 11:31 AM CDT Plan of Treatment Scheduled Procedures Name Priority Associated Diagnoses Date/Ti me SECTION Breech presentation, single or unspecified fetus with history of uterine myomectomy Obesity affecting in first trimester Severe pre-eclampsia, antepartum Medical Devices Implanted Type Area Learning Officer Device Identifier Shelf Expiration Date Model / Serial / Lot [employer] [id number] Seprafilm 6x5in Barrier Adhesion Sterile Disposable Latex Free - [id number] Implanted:Qty: 1 on 11/30/2019 by Markel Horton MD at [facility] [employer] [id number] 05/01/2022 [id number] / / [id number] Procedures Procedure Name Priority Date/Time Associated Diagnosis Comments HEPATITIS C ANTIBODY Routine 06/30/2019 6:04 PM CDT Unspecified high-risk from Last 3 Months or Most Recently Relevant to Health Maintenance Results * Hepatitis C antibody (06/30/2019 6:04 PM CDT) Hep C Ab Non-Reactiv e Non-Reactiv e [facility] Blood specimen (specimen) 06/30/2019 6:04 PM CDT 06/30/2019 7:14 PM CDT us Aminta Melendez NP LAB MICROBIOLOGY - GEN ERAL ORDERABLES Final Result [facility] [address] Department [place] [address] from Last 3 Months or Most Recently Relevant to Health [place] [address] ANTHEM ACCESS CHOICE [facility] Health ACCESS OOS ANTHEM ACCESS [facility] Advance Directives For more information, please contact: [phone] * Full Code (Latest Code Status on File) Date Activated Date Inactivated Comments 11/30/2019 9:53 PM 12/06/2019 9:16 PM * Full Code Date Activated Date Inactivated Comments 11/30/2019 11:26 AM 11/30/2019 9:53 PM Full CPR in case of cardiopulmonary arrest Care Teams Newspaper Or Periodical Editor Relationship Specialty Start Date End Date Elvira Glass MD [address] [place] [address] [place] [address] PCP - General Family Medicine 05/07/22
--- OUTSIDE RECORDS SUMMARY | 2025-04-14 08:05 | XMS_ITS | Clinical Summary ---
Author Organization [facility] [employer] [facility] [employer] [facility] [employer] Address [address] [place] [address] Care Team Providers Care Metal Treater Name Role Phone Elvira Glass MD Primary Care Provider [phone] Source Comments [facility] [employer] [facility] [employer] [facility],non-owned Affiliates and Associated Physician Practices is amultiple site organization consisting of ambulatory clinics and hospital sitesin [place], [place], [place] and [place]. This disclosure is being madepursuant to the Care Everywhere program and may not contain all information available regarding this patient. Last updated 18.[facility] [employer] [facility] Allergies No known active allergies Medications * Be aware that medications may not be up to date on this document. Alwaysverify current medications with the patient. Vit-Fe Fumarate-FA ( VITAMIN) 27-0.8 MG tablet Take 1 tablet by mouth once daily Active LABETALOL HCL PO Active aspirin (ASPIRIN) 81 MG tablet Take 81 mg by mouth once daily Active FOLIC ACID PO Active Coenzyme Q10 (COQ-10 PO) Active Cholecalciferol (D3 VITAMIN PO) Acti ve fluticasone propionate (FLONASE) 50 MCG/ACT nasal sprayIndication s:Nasal Signs and Symptoms Mamou 2 sprays into each nostril once daily Reasons: Signs and Symptoms of Nose Diseases 1 bottles 03/12/2019 Active benzonatate (TESSALON) 200 MG capsule Take 1 (one) capsule by mouth 3 times daily as needed for Cough 30 capsule 04/18/2021 Active promethazine-DM syrup Take 5 mL by mouth every 6 hours as needed for Cough 200 mL 11/02/2021 Active fluticasone propionate (FLONASE) 50 MCG/ACT nasal spray Mamou 2 (two) sprays into each nostril once daily 16 g 11/02/2021 Active Active Problems No known active problems Immunizations Immunization Administration Dates Next Due [employer] primary monoval ent 12+ yr 0.3mL Purple cap 02/17/2021,01/28/2021 INFLUENZA VACCINE, QUADR. (F LUZONE; FLULAVAL; FLUARIX; AFLURIA QUADRIVALENT; 6MO+), 0.5 ML (IIV4) 08/09/2019 TDAP (7yrs+) 11/16/2019 Social History Tobacco Use Types Packs/Day Years Used Date Smoking Tobacco: Never Smokeless Tobacco: Never PHQ-2 Answer Date Recorded PHQ2 TOTAL SCORE 0 11/02/2021 Comments No Sex and Gender Information Value Date Recorded Sex Assigned at Not on file Legal Sex Female 1:25 PM CDT Gender Identity Not on file Sexual Orientation Not on file Last Filed Vital Signs Vital Sign Reading Time Taken Comments Blood Pressure 148/90 04/18/2021 11:46 AM CDT Pulse 98 04/18/2021 11:46 AM CDT Temperature 36.9 C (98.5 F) 04/18/2021 11:46 AM CDT Respiratory Rate 18 04/18/2021 11:46 AM CDT Oxygen Saturation 99% 04/18/2021 11:46 AM CDT Inhaled Oxygen Concentration - - Weight 123.4 kg (272 lb) 04/18/2021 11:46 AM CDT Height 162.6 cm (5' 4) 04/18/2021 11:46 AM CDT Body Mass Index 46.69 04/18/2021 11:46 AM CDT Plan of Treatment Health Maintenance Due Date Last Done Comments COLOGUARD (AGES 45-75) - COL ON CA SCREENING 1978 COLON MONITORING 1978 COLONOSCOPY - COLON CA SCREENING 1978 CT COLONOGRAPHY - COLON CA SCREENING 1978 Colorectal Cancer Screening 1978 FIT - COLON CA SCREENING 1978 FLEX SIG - COLON CA SCREENING 1978 LIPID TESTING 1978 MAMMOGRAM 1978 HIV SCREENING 1993 HEPATITIS C SCREENING 11/03/1996 HEPATITIS B VACCINE (1 of 3 - 19+ 3-dose series) 1997 SCREENING FOR DIABETES 04/18/2021 COVID-19 VACCINE (3 - 2023-2 5 season) 2024 02/17/2021, 01/28/2021 DEPRESSION SCREENING 11/02/2024 INFLUENZA VACCINE (Season Ended) 2025 08/09/2019 ZOSTER VACCINE (1 of 2) 2028 DTAP/TDAP/TD VACCINES (2 - T d or Tdap) 11/16/2029 11/16/2019 HIB VACCINE Aged Out No longer eligi ble based on patient's age to complete this topic HPV VACCINE Aged Out No longer eligi ble based on patient's age to complete this topic MENINGOCOCCAL (Group B) VACCINE SHARED DECISION-MAKING Aged Out No longer eligible based on patient's age to complete this topic MENINGOCOCCAL GROUPS A/C/Y/W VACCINE Aged Out No longer eligible b ased on patient's age to complete this topic PNEUMOCOCCAL VACCINE Aged Out No long er eligible based on patient's age to complete this topic Insurance [facility] [id number] [facility] [id number] [facility] Care Teams Metal Treater Relationship Specialty Start Date End Date Elvira Glass MD [address] [place] [address] PCP - General Family Medicine 04/18/21
--- OUTSIDE RECORDS SUMMARY | 2025-04-14 08:05 | XMS_ITS | Encounter Summary ---
Author Organization [employer] Care Team Providers Care Sewer Pipe Sorter Name Role Phone Yennifer Weaver PAC Primary Care Pro vider Encounter Details Date Type Department Care Team (Latest Contact Info) Description 04/14/2025 Travel Social History Tobacco Use Types Packs/Day Years Used Date Smoking Tobacco: Every Day Cigarettes 0.5 16 Started: 04/15/2009 Smokeless Tobacco: Never Alcohol Use Standard Drinks/Week Comments Yes 0 (1 standard drink = 0.6 oz pur e alcohol) [facility] Utilities Answer Date Recorded In the past 12 months has [employer], gas, oil, or water [employer] threatened to shut off services in your home? No 04/15/2024 Social Connection and Isolation Panel Answer Date Recorded In a typical week, how many times do you talk on the phone with family, friends, or neighbors? More than three times a week 04/15/2024 How often do you get togethe r with friends or relatives? Three times a week 04/15/2024 Attends [employer] Not on file 04/15 Active Member [...] care, and heating? Not very hard 04/15/2024 [facility] - Occupational Stress Questionnaire Answer Date Recorded [...] [facility] the [facility] were you homeless or living in a long term (including now)? No 04/15/2024 Comments No Sex and Gender Information Value Date Recorded Sex Assigned at Not on file Legal Sex Female 10:19 AM CDT Gender Identity Not on file Sexual Orientation Not on file documented as of this encounter Plan of Treatment Not on file documented as of this encounter Visit Diagnoses Not on filedocumented in this encounter Care Teams Sewer Pipe Sorter Relationship Specialty Start Date End Date Yennifer Weaver PAC [address] [place] [address] PCP - General Physician Software Systems Analyst 04/15/24 documented as of this encounter
--- OUTSIDE RECORDS SUMMARY | 2025-04-14 08:05 | XMS_ITS | Encounter Summary ---
Author Organization [facility] Address [address] [place] [place] [address] Phone Care Team Providers Care Manager Oncology Name Role Phone Yennifer Weaver PAC Primary Care Pro vider Reason for Referral * Radiology Services (Routine) - Closed Specialty Diagnoses / Procedures Referred By Toribio marquez Referred To Contact Radiology Diagnoses Encounter for screening mammogram for breast cancer Procedures SOHAN SCREENING BILATERAL DIGITAL W CAD W Yennifer Barker, PAC [address] [place] [address] Phone: tel: fax: Referral ID Status Reason Start Date Expiration Date Visits Re quested Visits Authorized [id number] Closed 03/14/2025 1 1 Reason for Visit * Radiology Services (Routine) - Closed Specialty Diagnoses / Procedures Referred By Toribio marquez Referred To Contact Radiology Diagnoses Encounter for screening mammogram for breast cancer Procedures SOHAN SCREENING BILATERAL DIGITAL W CAD W Yennifer Barker, PAC [address] [place] [address] Phone: tel: fax: Referral ID Status Reason Start Date Expiration Date Visits Re quested Visits Authorized [id number] Closed 03/14/2025 1 1 Encounter Details Date Type Department Care Team (Late st Contact Info) Description 04/14/2025 6:58 AM CDT Hospital Encounter [facility] Mammography [address] [place] [id number] Yennifer Weaver, PAC [address] [place] [address] Arrived Social History Tobacco Use Types Packs/Day Years Used Date Smoking Tobacco: Every Day Cigarettes 0.5 16 Started: 04/15/2009 Smokeless Tobacco: Never Alcohol Use Standard Drinks/Week Comments Yes 0 (1 standard drink = 0.6 oz pur e alcohol) [facility] Utilities Answer Date Recorded In the past 12 months has th e electric, gas, oil, or water [employer] threatened to shut off services in your home? No 04/15/2024 Social Connection and Isolation Panel Answer Date Recorded In a typical week, how many times do you talk on the phone with family, friends, or neighbors? More than three times a week 04/15/2024 How often do you get togethe r with friends or relatives? Three times a week 04/15/2024 Attends [employer] Not on file 04/15 Active Member [...] care, and heating? Not very hard 04/15/2024 [facility] Occup[facility] ional [facility] - Occupational Stress [...] were you homeless or living in a fdc (including now)? No 04/15/2024 Comments No Sex [...] Encounter for screening mammogram for breast cancer 1 Occurrences starting 04/14/2025 until 04/14/2025 documented as of this encounter Visit Diagnoses Diagnosis Encounter for screening mammogram for breast cancer documented in this encounter Care Teams Manager Oncology Relationship Specialty Start Date End Date Yennifer Weaver PAC [address] [place] [address] PCP - General Physician [employer] 04/15/24 documented as of this encounter
--- OUTSIDE RECORDS SUMMARY | 2025-04-14 08:09 | XMS_ITS | Continuity of Care Document ---
Author Organization [facility] Address [address] [place] [address] Phone Care Team Providers Care Figure Clerk Name Role Phone John Guerra MD Unavailable [...] AGE 40-64 OFFICE/OUTPATIENT VISIT, EST OFFICE/OUTPATIENT VISIT, [facility] Advance Directives Directive Yes / No Effective Date File Name No Information Encounters Encounter Description Practice Location Reason(s) For Visit Diagnoses Date Provider Providers Copied on Encounter OFFICE/OUTPA TIENT VISIT, EST [facility], [address] [place] [address], [id number], tel:[phone] [facility] anxiety1 (chief complaint) sleep apnea1 (chief complaint) obesity1 (chief complaint) FatigueGeneralized Anxiety DisorderAbnormal weight gainObstructive sleep apnea hypopnea Feb-0 6-202 5 Charlie Lopez. [address], [place], [place], [id number] , [place]. tel:[phone] PREV VISIT, EST, AGE 40-64 [facility], [address], [place], [place], [id number], [place] tel:[phone] [facility] Medicine physical (chief complaint) Encounter for general adult medical exam w abnormal findingsMixed hyperlipidemiaEssen tial (primary) hypertensionGeneral ized Anxiety DisorderAbnormal weight gainFatigue 5 Charlie Lopez. [address], [place], [place], [id number] , [place]. tel:[phone] OFFICE/OUTPA TIENT VISIT, [facility], [address], [place], [place], [id number], [place] tel:[phone] [facility] Medicine HTN (chief complaint) COVID1 (chief complaint) anxiety1 (chief complaint) weight gain1 (chief complaint) HLP (chief complaint) Essential (primary) hypertensionMixed hyperlipidemiaGener alized Anxiety DisorderAbnormal weight gainRenal diseaseAcute sinusitis 4 Charlie Lopez. [address], [place], [place], [id number] , [place]. tel:[phone] Family History Family Member Type Diagnosis Age At Onset Mother Problem Alive and well Father Problem of pancreatic CA 64 Sister Problem Alive and well Payers Payer name Insurance type Covered green party ID Authoreliua timustapha(s) [facility] [id number] Social History Type Description Quantity Date Captured [...] Mental Status Date Cognitive Assessment Orientation - Emerson ed to time, place, person, situation.
[2025-04-14 08:13] VITALS: BP 147/88; PULSE 84; RESP 18; TEMP 36.9; O2SAT 98
--- NOTE | 2025-04-14 08:26 | ED_ITS ---
HPI - URI/Sore Throat General Chief Complaint: Upper Respiratory Infection Stated Complaint: Sinus Problem Time Seen by Provider: 04/14/25 08:17 Source: patient and RN notes reviewed Mode of arrival: ambulatory Limitations: no limitations History of Present Illness HPI Narrative: Patient presents today complaining of a 2 week history of bilateral ear discomfort, intermittent headache, postnasal drip, nasal congestion. Denies fever, shortness of breath. She also reports some mild cough but states she his a smoker. She has been taking Sudafed PE with some relief. No recent antibiotic use. Related Data Home Medications ?Medication ?Instructions ?Recorded ?Confirmed ?Last Taken ?Type Women's Multivitamin 1 tab-cap PO DAILY 12/24/23 01/06/24 Unknown History aspirin 81 mg capsule 81 mg PO DAILY 12/24/23 01/06/24 Unknown History escitalopram oxalate 20 mg tablet 20 mg PO DAILY 12/24/23 01/06/24 Unknown History losartan 100 1 tablet PO DAILY 12/24/23 01/06/24 01/06/24 History mg-hydrochlorothiazide 25 mg tablet omega-3 fatty acids 1 cap PO DAILY 12/24/23 01/06/24 Unknown History Allergies Allergy/AdvReac Type Severity Reaction Status Date / Time No Known Allergies Allergy Unverified 01/06/24 09:08 Review of Systems Review of Systems: CONSTITUTIONAL: Denies body aches, fever, chills, or sweats. EYES: Denies visual changes, redness, or discharge. ENT: Denies rhinorrhea, sore throat+ Congestion, ear pain, postnasal drip CARDIOVASCULAR: Denies chest pain, palpitations, or edema. RESPIRATORY: Denies dyspnea.+ cough GASTROINTESTINAL: Denies abdominal pain, nausea, vomiting, or diarrhea. GENITOURINARY: Denies dysuria or hematuria. SKIN: Denies rash, itching, or wounds. MUSCULOSKELETAL: Denies back pain, joint pain, or myalgia. NEUROLOGIC: Denies numbness, tingling, or weakness.+ headache PSYCH: Denies depression or anxiety. [facility] Past Medical History Medical History Colon cancer screening HTN (hypertension) Morbid obesity Social History Social History Smoking packs per day: 0.5 Smoking cigarettes per day: 10.0 Years smoked: 12 Smoking pack-years: 6.00 Smoking status: Current every day smoker Tobacco type: cigarettes Alcohol intake: current Drinks per week: 21 Alcohol use details: BEER Substance use: never Substance use type: does not use Living arrangements: with family Spiritual care concerns: No Comments At time of signature, I have reviewed and agree with nursing past medical, surgical, social and family history unless otherwise noted. Please see nursing chart for further information. There is no relevant family history pertinent to the presenting complaint Exam Narrative: GENERAL: Well-appearing, well-nourished, and in no acute distress. HEAD: Normocephalic, atraumatic. EYES: EOMI. No redness or drainage. Conjunctivae normal. ENT: Mucous membranes pink and moist. Nares mildly congested. No rhinorrhea. TMs normal bilaterally. Throat normal. Uvula midline. right maxillary sinus tenderness NECK: Normal AROM. Supple. No lymphadenopathy. CHEST: No respiratory distress. Clear to auscultation. HEART: Regular rate and rhythm. No murmur appreciated. EXTREMITIES: Normal range of motion. No edema. SKIN: Warm, dry, no rash. Capillary refill normal. Normal skin turgor. NEURO: No focal deficits. Alert and oriented x3. Gait steady. PSYCH: Normal affect. No signs of depression or anxiety. Course Course Level of Care: Express Care Visit Vital Signs Vital signs: Vital Signs Temperature 98.4 F 04/14/25 08:13 Pulse Rate 84 04/14/25 08:13 Respiratory Rate 18 04/14/25 08:13 Blood Pressure 147/88 H 04/14/25 08:13 Pulse Oximetry 98 04/14/25 08:13 Oxygen Delivery Room Air 04/14/25 08:13 Temperature 98.4 F 04/14/25 08:13 Pulse Rate 84 04/14/25 08:13 Respiratory Rate 18 04/14/25 08:13 Blood Pressure 147/88 H 04/14/25 08:13 Pulse Oximetry 98 04/14/25 08:13 Oxygen Delivery Room Air 04/14/25 08:13 reviewed MDM - URI/Sore Throat MDM Narrative Medical decision making narrative: patient will be treated with Augmentin for presumed bacterial sinus infection. Discussed OTC treatments that may be helpful as well. Patient agrees with plan. Anticipatory guidance given. Differential Diagnosis Differential diagnosis: Likely upper respiratory infection, otitis media, sinusitis and viral infection Critical Care Time Critical Care Time Critical Care Time: No Discharge Plan Discharge Clinical Impression: Sinusitis Qualifiers: Sinusitis location: maxillary Chronicity: acute Recurrence: non-recurrent Qualified Code(s): J01.00 - Acute maxillary sinusitis, unspecified Patient Disposition: Home Condition: Stable Instructions: Antibiotic Form, Sinusitis (ED) Additional Instructions: please take the Augmentin as prescribed until gone. Continue Sudafed or consider Flonase for your symptoms as well. Follow-up with your PCP in 3 days if symptoms are not improving. Your blood pressure was elevated above 120/80 today at Urgent Care. This puts you above the threshold for follow up. Please schedule a followup visit with your personal physician as soon as possible, for further evaluation and treatment. Even blood pressure exceeding 120/80 may indicate pre-hypertension. Patient Language: New Zealander Prescriptions: New amoxicillin-pot clavulanate 875-125 mg tablet 1 tablet PO Q12H 7 Days Qty: 14 0RF No Action losartan-hydrochlorothiazide 100-25 mg tablet 1 tablet PO DAILY escitalopram oxalate 20 mg tablet 20 mg PO DAILY Fish Oil Capsule 1 cap PO DAILY aspirin 81 mg Capsule 81 mg PO DAILY Women's Multivitamin 1 tab-cap PO DAILY Follow-up/Referrals: John Guerra MD [Primary Care Provider] - Time of Disposition: 08:29
== END 2025-04-14 08:33 | disposition home or self-care (01) ==
PROVIDERS: Emergency Provider Nurse Practitioner; PCP Emergency Medicine
DX: J01.00 Acute maxillary sinusitis, unspecified (principal); F17.210 Nicotine dependence, cigarettes, uncomplicated; I10 Essential (primary) hypertension; E66.01 Morbid (severe) obesity due to excess calories; Z68.42 Body mass index [BMI] 45.0-49.9, adult
CPT/HCPCS: 99213; G0463